=== PATIENT | female | born 1940 | race Caucasian/White ===

== ENCOUNTER → 2020-01-30 | Outpatient (CLI) | payer OTHER ==
[2020-01-30 10:25] LABS: Basophils # (auto) 0.1 10 ^3/uL (0-0.2); Basophils % (auto) 1.2 % (0.0-2.0); Eosinophils # (auto) 0.2 10 ^3/uL (0-0.8); Eosinophils % (auto) 2.9 % (0.0-7.0); Hematocrit 40.5 % (36.0-46.0); Hemoglobin 13.7 g/dL (12.2-16.2); Lymphocytes # (auto) 1.8 10 ^3/uL (0.4-5.4); Lymphocytes % (auto) 26.6 % (10.0-50.0); Mean Corpuscular Hemoglobin 29.7 pg (28.0-32.0); Mean Corpuscular Hgb Conc. 33.9 g/dL (32.0-36.0); Mean Corpuscular Volume 87.6 fL (80.0-100.0); Monocytes # (auto) 0.7 10 ^3/uL (0-1.3); Monocytes % (auto) 10.1 % (0.0-12.0); Neutrophils # (auto) 4.1 10 ^3/uL (1.6-8.6); Neutrophils % (auto) 59.2 % (37.0-80.0); Platelet Count (auto) 227 10^3/uL (140-450); Red Blood Cells 4.62 10^6/uL (4.0-5.20); Red Cell Distribution Width 13.7 % (11.8-14.3); White Blood Cell 6.9 10^3/uL (4.4-10.8)
[2020-01-30 10:46] LABS: Potassium 4.2 mmol/L (3.5-5.1)
[2020-01-30 10:50] LABS: Bilirubin, Total 0.6 mg/dL (0.2-1.0); Total Protein 7.2 g/dL (6.4-8.2)
[2020-01-30 10:53] LABS: BUN/Creatinine Ratio 16.7
== END | disposition home or self-care (01) ==
LOC: LAB 10:11
PROVIDERS: ATTEND Physician Assistant
DX: E78.5 Hyperlipidemia, unspecified (principal); E03.9 Hypothyroidism, unspecified; M19.90 Unspecified osteoarthritis, unspecified site; K29.60 Other gastritis without bleeding; Z82.49 Family history of ischemic heart disease and other diseases of the circulatory system
CPT/HCPCS: 36415; 80053; 80061; 84443; 85025

== ENCOUNTER → 2020-03-27 | Outpatient (CLI) | payer OTHER | END | disposition home or self-care (01) | LOC: XYW 09:52 | PROVIDERS: ATTEND Internal Medicine | DX: I08.8 Other rheumatic multiple valve diseases (principal); I10 Essential (primary) hypertension | CPT/HCPCS: 93306 ==

== ENCOUNTER → 2020-03-27 | Outpatient (CLI) | payer OTHER | END | disposition home or self-care (01) | LOC: LAB 10:58 | PROVIDERS: ATTEND Physician Assistant | DX: Z00.00 Encounter for general adult medical examination without abnormal findings (principal) | CPT/HCPCS: 82274 ==

== ENCOUNTER → 2020-04-04 | Outpatient (CLI) | payer OTHER ==
[~2020-04-04] VITALS: Ht 162.6 cm; Wt 69.4 kg
[~2020-04-04] MED LIST: ADENOSINE 58 MG in GIVE UN-DILUTED 0 ML IV STA
== END | disposition home or self-care (01) ==
LOC: XY 06:56
PROVIDERS: ATTEND Internal Medicine
DX: I10 Essential (primary) hypertension (principal)
CPT/HCPCS: 78452; 93017; A9500; J0153

== ENCOUNTER → 2023-11-15 | Outpatient (CLI) | payer OTHER ==
[~2023-11-15] MED LIST changes: -ADENOSINE 58 MG in GIVE UN-DILUTED 0 ML IV STA; +ATOR20TA50 PO; +LEVO75TA6 PO; +LISI40TA16 PO
== END | disposition home or self-care (01) ==
LOC: LAB 13:18
PROVIDERS: ATTEND Internal Medicine
DX: Z00.00 Encounter for general adult medical examination without abnormal findings (principal); R06.02 Shortness of breath; E78.5 Hyperlipidemia, unspecified; F32.5 Major depressive disorder, single episode, in full remission; I10 Essential (primary) hypertension
CPT/HCPCS: 82270

== ENCOUNTER 2023-11-17 12:00 | Inpatient (IN) | payer OTHER ==
[~2023-11-17] VITALS: Ht 165.1 cm; Wt 75.2 kg
[2023-11-17 13:27] LABS: Basophils # (auto) 0.2 10 ^3/uL (0-0.2); Basophils % (auto) 2.5 % (0.0-2.0); Hematocrit 24.9 % (36.0-46.0); Mean Corpuscular Hgb Conc. 29.9 g/dL (32.0-36.0); Neutrophils # (auto) 4.9 10 ^3/uL (1.6-8.6); White Blood Cell 8.3 10^3/uL (4.4-10.8)
[2023-11-17 13:29] LABS: Eosinophils # (auto) 0.3 10 ^3/uL (0-0.8); Eosinophils % (auto) 3.2 % (0.0-7.0); Hemoglobin 7.5 g/dL (12.2-16.2); Lymphocytes % (auto) 23.6 % (10.0-50.0); Mean Corpuscular Hemoglobin 18.5 pg (28.0-32.0); Mean Corpuscular Volume 61.8 fL (80.0-100.0); Monocytes % (auto) 12.4 % (0.0-12.0); Neutrophils % (auto) 58.3 % (37.0-80.0); Red Blood Cells 4.03 10^6/uL (4.0-5.20); Red Cell Distribution Width 18.7 % (11.8-14.3)
[2023-11-17 13:36] LABS: Alanine Aminotransferase 20 U/L (7-40); Albumin 5.2 g/dL (3.2-4.8); Alkaline Phosphatase 60 U/L (46-116); Anion Gap 8 (5-15); Aspartate Aminotransferase 24 U/L (13-40); BUN/Creatinine Ratio 11.8 (10.0-20.0); Blood Urea Nitrogen 9 mg/dL (9-23); Calcium 9.8 mg/dL (8.5-10.1); Carbon Dioxide 25 mmol/L (20-30); Chloride 94 mmol/L (98-107); Glucose 93 mg/dL (74-106); Sodium 127 mmol/L (136-145)
[2023-11-17 13:37] LABS: Bilirubin, Total 0.6 mg/dL (0.2-1.0); Total Protein 7.3 g/dL (5.7-8.2)
[2023-11-17 15:38] LABS: Urine Bacteria NONE SEEN /hpf (None Seen); Urine Blood Negative /uL (Negative); Urine Clarity Clear (Clear); Urine Color Colorless (Yellow); Urine Protein, UAD Negative (Negative); Urine Specific Gravity 1.004 (1.001-1.035); Urine Urobilinogen Normal (Negative); Urine WBC 1 /hpf (0 - 5)
[2023-11-17] MEDS ORDERED: LEVO75TA6 PO (16:24)
[2023-11-17] MEDS ORDERED: ATOR20TA50 PO (16:24)
[2023-11-17] MEDS ORDERED: LISI40TA16 PO (16:24)
[2023-11-17] MEDS ORDERED: HYDROcodone-ACET 5/325MG TAB PO PRN (16:30)
[2023-11-17] MEDS ORDERED: DOCUSATE SOD 100 MG CAP PO PRN (16:30)
[2023-11-17] MEDS ORDERED: ONDANSETRON HCL 4 MG/2 ML VIAL IV PRN (16:30)
[2023-11-17 17:05] LABS: % Iron Saturation 4.7 % (15-50)
[2023-11-17 17:36] LABS: Ferritin 3.5 ng/mL (10-291)
[2023-11-17 17:37] LABS: Folate (Folic Acid) > 24.00 ng/mL (>5.38)
[2023-11-17 23:23] VITALS: BP 139/71; PULSE 90; RESP 17; RESP 18; RESP 19; TEMP 98; TEMP 98.4; O2SAT 95; O2SAT 97
[2023-11-17] MEDS: ATORVASTATIN 20 MG TAB PO SCH (23:32)
[2023-11-18] VITALS (9 sets, daily range): BP systolic 111–139; BP diastolic 58–71; PULSE 66–91; RESP 16–20; TEMP 97.9–98.4; O2SAT 95–99
[2023-11-18] MEDS: LEVOTHYROXINE SODIUM 25 MCG TAB PO SCH (06:11)
[2023-11-18] MEDS: LEVOTHYROXINE SODIUM 50 MCG TAB PO SCH (06:11)
[2023-11-18 06:36] LABS: Chloride 96 mmol/L (98-107); Potassium 3.7 mmol/L (3.5-5.1); Sodium 130 mmol/L (136-145)
[2023-11-18 06:37] LABS: Anion Gap 9 (5-15); Calcium 9.4 mg/dL (8.5-10.1); Carbon Dioxide 25 mmol/L (20-30)
[2023-11-18 06:42] LABS: BUN/Creatinine Ratio 9.6 (10.0-20.0); Blood Urea Nitrogen 7 mg/dL (9-23); Glucose 87 mg/dL (74-106)
[2023-11-18 07:00] LABS: Basophils # (auto) 0.1 10 ^3/uL (0-0.2); Basophils % (auto) 1.2 % (0.0-2.0); Eosinophils # (auto) 0.2 10 ^3/uL (0-0.8)
[2023-11-18 07:03] LABS: Eosinophils % (auto) 2.6 % (0.0-7.0); Hematocrit 26.2 % (36.0-46.0); Hemoglobin 8.2 g/dL (12.2-16.2); Lymphocytes # (auto) 1.7 10 ^3/uL (0.4-5.4); Lymphocytes % (auto) 21.2 % (10.0-50.0); Mean Corpuscular Hemoglobin 20.4 pg (28.0-32.0); Mean Corpuscular Hgb Conc. 31.3 g/dL (32.0-36.0); Mean Corpuscular Volume 65.1 fL (80.0-100.0); Monocytes % (auto) 12.6 % (0.0-12.0); Neutrophils % (auto) 62.4 % (37.0-80.0); Red Blood Cells 4.02 10^6/uL (4.0-5.20); Red Cell Distribution Width 22.4 % (11.8-14.3)
[2023-11-18] MEDS ORDERED: PATIENTS OWN MEDICATION (Levothyroxine Sodium 1 TAB) PO SCH (10:00)
[2023-11-18] MEDS: LISINOPRIL 20 MG TAB PO SCH (10:11)
[2023-11-18] MEDS ORDERED: FER325T PO (10:27)
== END 2023-11-18 14:10 | disposition home or self-care (01) | DRG 812 ==
LOC: ER 12:00 → OVERFLOW 16:23 → WEST WING 23:13 → OBSVTOIN 11-18 09:06
PROVIDERS: ADMIT Nurse Practitioner Acute Care; ATTEND Nurse Practitioner Acute Care
PROC: 30233N1 Transfusion of Nonautologous Red Blood Cells into Peripheral Vein, Percutaneous Approach (ICD-10-PCS; principal; 2023-11-18)
DX: D50.9 Iron deficiency anemia, unspecified (principal); E87.1 Hypo-osmolality and hyponatremia; E86.0 Dehydration; I10 Essential (primary) hypertension; E07.9 Disorder of thyroid, unspecified; K21.9 Gastro-esophageal reflux disease without esophagitis; E03.9 Hypothyroidism, unspecified; E78.5 Hyperlipidemia, unspecified; Z90.710 Acquired absence of both cervix and uterus
CPT/HCPCS: 36415; 71045; 80048; 80053; 80061; 81001; 82040; 82270; 82607; 82728; 82746; 83010; 83540; 83550; 83880; 84439; 84443; 84484; 85025; 85045; 86850; 86900; 86901; 86920; G0378

== ENCOUNTER → 2023-11-17 | Outpatient (CLI) | payer OTHER ==
[~2023-11-17] MED LIST changes: +FER325T PO
[2023-11-17 10:37] LABS: Lymphocytes # (auto) 1.8 10 ^3/uL (0.4-5.4); Mean Corpuscular Hemoglobin 18.6 pg (28.0-32.0)
[2023-11-17 10:39] LABS: Basophils # (auto) 0.1 10 ^3/uL (0-0.2); Basophils % (auto) 1.8 % (0.0-2.0); Eosinophils # (auto) 0.3 10 ^3/uL (0-0.8); Eosinophils % (auto) 3.6 % (0.0-7.0); Lymphocytes % (auto) 23.8 % (10.0-50.0); Mean Corpuscular Hgb Conc. 30.4 g/dL (32.0-36.0); Mean Corpuscular Volume 61.3 fL (80.0-100.0); Monocytes # (auto) 0.9 10 ^3/uL (0-1.3); Monocytes % (auto) 12.4 % (0.0-12.0); Neutrophils # (auto) 4.4 10 ^3/uL (1.6-8.6); Neutrophils % (auto) 58.4 % (37.0-80.0); Nucleated Red Blood Cells % 0.1 %; Red Blood Cells 3.75 10^6/uL (4.0-5.20); Red Cell Distribution Width 18.5 % (11.8-14.3); White Blood Cell 7.5 10^3/uL (4.4-10.8)
[2023-11-17 11:21] LABS: Alanine Aminotransferase 18 U/L (7-40); Albumin 4.8 g/dL (3.2-4.8); Alkaline Phosphatase 54 U/L (46-116); Anion Gap 9 (5-15); Aspartate Aminotransferase 21 U/L (13-40); BUN/Creatinine Ratio 8.6 (10.0-20.0); Bilirubin, Total 0.4 mg/dL (0.2-1.0); Blood Urea Nitrogen 6 mg/dL (9-23); Calcium 9.4 mg/dL (8.5-10.1); Carbon Dioxide 24 mmol/L (20-30); Chloride 93 mmol/L (98-107); Cholesterol 127 mg/dL (< 200); Glucose 94 mg/dL (74-106); HDL Cholesterol 46 mg/dL (40-59); LDL Cholesterol 58 mg/dL (< 100); Potassium 4.1 mmol/L (3.5-5.1); Sodium 126 mmol/L (136-145); Triglycerides 169 mg/dL (< 150)
[2023-11-17 14:14] LABS: Hypochromia Marked; Platelet Estimate Adequate
== END | disposition home or self-care (01) ==
LOC: LAB 09:50
PROVIDERS: ATTEND Nurse Practitioner Family
DX: I10 Essential (primary) hypertension (principal); E78.5 Hyperlipidemia, unspecified; E03.9 Hypothyroidism, unspecified
CPT/HCPCS: 36415; 80053; 80061; 84439; 84443; 85025

== ENCOUNTER 2024-05-27 09:59 | Emergency (ER) | payer OTHER ==
[~2024-05-27] VITALS: Ht 160 cm; Wt 71.6 kg
[2024-05-27 12:57] VITALS: BP 128/51; TEMP 97.5
[2024-05-27 12:58] VITALS: PULSE 77; RESP 18; O2SAT 94
== END 2024-05-27 13:02 | disposition home or self-care (01) ==
LOC: ER 09:59
DX: J44.9 Chronic obstructive pulmonary disease, unspecified (principal); K21.9 Gastro-esophageal reflux disease without esophagitis; I10 Essential (primary) hypertension; E03.9 Hypothyroidism, unspecified; Z79.899 Other long term (current) drug therapy; Z98.890 Other specified postprocedural states; Z90.710 Acquired absence of both cervix and uterus
CPT/HCPCS: 36415; 71045; 83880; 85379; 93005

== ENCOUNTER 2025-02-01 00:18 | Emergency (ER) | payer OTHER ==
[~2025-02-01] VITALS: Ht 165.1 cm; Wt 79.8 kg
[2025-02-01 01:20] LABS: COVID19 ANTIGEN SOFIA FIA NEGATIVE (NEGATIVE)
[2025-02-01 01:21] LABS: Rapid Influenza A Negative (Negative); Rapid Influenza B Negative (Negative)
--- NOTE | 2025-02-01 01:53 | DVH ---
CHEST RADIOGRAPH Indication: cough Technique: Single frontal view of the chest was obtained COMPARISON: XY CHEST PORTABLE on DOS: 11/17/23 FINDINGS: Lines and Tubes: None Lungs: Clear Pleura: No effusion. No pneumothorax. Cardiomediastinal contours: Unremarkable IMPRESSION: No abnormality demonstrated.
[2025-02-01] MEDS ORDERED: AZITTAB PO (02:13)
[2025-02-01] MEDS ORDERED: BENZ100C97 PO (02:13)
[2025-02-01] MEDS ORDERED: ALBU108A5 IN (02:13)
--- NOTE | 2025-02-01 02:14 | ED.PDOC ---
SOB-HPI HPI Comments 84-year-old female complaining of cough congestion fever sore throat. States it started four days ago. Nothing makes it better, nothing makes it worse. States she was started having some mild shortness a breath today. No new foods or medication no recent travel. 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 History Family History Family History: Reviewed,noncontributory to illness Social History Smoker: Non-Smoker Alcohol: Denies ETOH Use Drugs: Denies Drug Use Lives In: Home Constitutional: denies: chills, diaphoresis, fatigue, fever, malaise, sweats, weakness, others EENTM: reports: nose congestion, throat pain; denies: blurred vision, double vision, ear bleeding, ear discharge, ear drainage, ear pain, ear ringing, eye pain, eye redness, hearing loss, mouth pain, mouth swelling, nasal discharge, nose bleeding, nose pain, photophobia, tearing, throat swelling, voice changes, others Respiratory: reports: cough; denies: hemoptysis, orthopnea, SOB at rest, shortness of breath, SOB with excertion, stridor, wheezing, others Cardiovascular: denies: chest pain, dizzy spells, diaphoresis, Dyspnea on exertion, edema, irregular heart beat, left arm pain, lightheadedness, palpitations, PND, syncope, others Gastrointestinal: denies: abdomen distended, abdominal pain, blood streaked bowels, constipated, diarrhea, dysphagia, difficulty swallowing, hematemesis, melena, nausea, poor appetite, poor fluid intake, rectal bleeding, rectal pain, vomiting, others Genitourinary: denies: abnormal vagina bleeding, burning, dyspareunia, dysuria, flank pain, frequency, hematuria, incontinence, pain, , vagina discharge, urgency, others Neurological: denies: dizziness, fainting, headache, left sided numbness, left sided weakness, numbness, paresthesia, pre-existing deficit, right sided numbness, right sided weakness, seizure, speech problems, tingling, tremors, weakness, others Musculoskeletal: denies: back pain, gout, joint pain, joint swelling, muscle pain, muscle stiffness, neck pain, others Integumetry: denies: bruises, change in color, change in hair/nails, dryness, laceration, lesions, lumps, rash, wounds, others Allergic/Immunocompromised: denies: Difficulty Healing, Frequent Infections, Hives, Itching, others Hematologic/Lymphatic: denies: anemia, blood clots, easy bleeding, easy bruising, swollen glands, others Physical Exam General Appearance: No Apparent Distress, Normal HEENT: Normal ENT Inspection, Pharynx Normal, TMs Normal Neck: Full Range of Motion, Non-Tender, Normal, Normal Inspection Respiratory: Chest Non-Tender, Lungs Clear, No Accessory Muscle Use, No Respiratory Distress, Normal Breath Sounds Cardiovascular: No Edema, No JVD, No Murmur, No Gallop, Normal Peripheral Pulses, Regular Rate/Rhythm Breast Exam: Deferred Gastrointestinal: No Organomegaly, Non Tender, No Pulsatile Mass, Normal Bowel Sounds, Soft Genitalia: Deferred Pelvic: Deferred Rectal: Deferred Extremities: No calf tenderness, Normal capillary refill, Normal inspection, Normal range of motion, Non-tender, No pedal edema Musculoskeletal : Apperance: Normal Neurologic: Alert, air route controller II-XII nml as Tested, No Motor Deficits, Normal Affect, Normal Mood, No Sensory Deficits Cerebellar Function: Normal Reflexes: Normal Skin: Dry, Normal Color, Warm Lymphatic: No Adenopathy Was a procedure done? Was a procedure done?: No Differential Dx Differential Diagnosis: Bronchitis, CHF, Dysrhythmia, Pneumonia X-Ray, Labs, Meds, VS Vital Signs Date Time Temp Pulse Resp B/P (MAP) Pulse Ox O2 Delivery O2 Flow Rate FiO2 02/01/25 00:30 98.4 107 18 150/82 (104) 93 98.4 Lab Test 02/01/25 00:47 Range/Units Influenza Type A Antigen Negative Negative Influenza Type B Antigen Negative Negative SARS-CoV-2 Antigen (Rapid) Negative NEGATIVE X-Ray, Labs, Meds, VS Comment Imaging: X-rays and CT scans were reviewed and interpreted by this provider, imaging shows no fractures and no pathological disease. Pending radiology review. Laboratory: Labs reviewed and interpreted by this provider. No significant abnormalities noted. Patient has prior medical visits reviewed. Med reconciliation performed Vital signs reviewed Time of 1ST Reevaluation: 02:14 Reevaluation 1ST: Improved Patient Education/Counseling: Diagnosis, Treatment, Need For Follow Up (Follow up with PCP in the next 2-4 days.) Family Education/Counseling: Diagnosis Departure 1 Departure Time of Disposition: 02:10 Impression: Primary Impression: Bronchitis Disposition: 01 HOME / SELF CARE / HOMELESS Condition: Fair e-Prescriptions Benzonatate (Benzonatate) 100 Mg Cap 1-2 CAP PO Q4HR, #60 CAP Prov: BRANDY BATISTA 02/01/25 Azithromycin (Zithromax Z-Ganesh) 250 Mg Tab 250 MG PO DAILY for 5 Days, #5 TAB Prov: BRANDY BATISTA 02/01/25 Albuterol Sulfate (Albuterol Sulfate Hfa) 108 Mcg/Act Aer 108 MCG IN TID PRN, #1 AER Prov: BRANDY BATISTA 02/01/25 Discharged With: Self Critical Care Note Critical Care Time?: No Stability Stability form required: No Heart Score Heart Score: Heart Score Response (Comments) Value History N/A 0 EKG N/A 0 Age N/A 0 Risk Factors N/A 0 Troponin N/A 0 Total 0 BRANDY BATISTA February 01, 2025 02:14
[2025-02-01 02:30] VITALS: BP 150/82; PULSE 100; RESP 18; TEMP 98.9; O2SAT 99
== END 2025-02-01 02:35 | disposition home or self-care (01) ==
LOC: ER 00:18
DX: J40 Bronchitis, not specified as acute or chronic (principal); I10 Essential (primary) hypertension; K21.9 Gastro-esophageal reflux disease without esophagitis; Z90.710 Acquired absence of both cervix and uterus; Z98.890 Other specified postprocedural states; Z20.822 Contact with and (suspected) exposure to COVID-19
CPT/HCPCS: 36415; 71045; 87426; 87804

== ENCOUNTER 2025-03-29 11:37 | Inpatient (IN) | payer OTHER ==
[~2025-03-29] VITALS: Ht 162.6 cm; Wt 80.3 kg
[~2025-03-29 11:37] MED LIST changes: +ALBU108A5 IN; +AZITTAB PO; +BENZ100C97 PO
[2025-03-29 12:17] VITALS: PULSE 88; RESP 12; O2SAT 96
--- NOTE | 2025-03-29 12:23 | ED.PDOC ---
History of Present Illness HPI Comments HPI: 84 y/o F, with PMHx of anemia, HTN, and thyroid disease presents to the ED for CC of generalized weakness. Patient states, that she has been experiencing generalized weakness x2days. Patient reports, to feel overly tired with no energy. Patient denies active bleeding, nausea, vomiting, or dark stools. No other symptoms or modifying factors present at this time. Initial Vitals BP: HR: RR: O2: Temp: Past Medical History: HTN, ANEMIA, THYROID DISEASE Past Surgical History: BACK Social History: Denies ETOH, smoking, and drug use. Medications: IRON Allergies: PENICILLINS HPI: Poor Historian. REVIEW OF SYSTEMS: CONSTITUTIONAL: Denies acute: fever, diaphoresis, chills, HEAD: Denies acute: headache, photophobia Eyes: Denies acute: Double vision, vision loss, eye pain, eye discharge. EARS: Denies acute: tinnitus, hearing loss, ear discharge, ear pain, THROAT: Denies acute: sore throat, swelling, difficulty swallowing , pain with swallowing, change in voice. NECK: Denies acute: neck pain, neck swelling, stiff neck. HEART: Denies acute : chest pain, palpitations, LUNGS: Denies acute: SOB, wheezing, cough, hemoptysis ABDOMEN: Denies acute: abdominal pain, Nausea, Vomiting, diarrhea, melena , hematemesis, hematochezia SKIN: Denies acute: rash, redness, lesions, itchiness. EXTREMITIES: Denies acute: calf pain, numbness, tingling, weakness, denies pain in extremity. Denies acute: Low back pain. Neuro: Denies acute: focal neurological deficit, motor or sensory focal neurological deficit, tremors, seizure like activity, confusion, dizziness, change in mental status, loss of bowel or bladder function, cauda equina like symptoms. : Denies acute: dysuria, hematuria, flank pain, increase in urinary frequency. PSYCH: Denies acute: hallucination, suicidal ideation, homicidal ideation. FEMALE: Denies acute: abnormal vaginal bleeding, foul odor, unusual discharge. PHYSICAL EXAM: General: ----mild----acute distress, awake and alert. Head: normocephalic, atraumatic. Neck: supple, trachea is midline, no swelling. Throat: Normal phonation. Eyes:, no erythema, no purulent discharge, no proptosis, no icterus. Heart: regular rate, regular rhythm, no significant murmur appreciated. Lungs: no apparent respiratory distress, Able to speak in full sentences. No wheezing, no rhonchi, no crackles. No stridors Clear to auscultation bilaterally. Abdomen: non tender to palpation, non distended, soft, no guarding, no rebound, + bowel sounds. Neuro: Awake, Alert, oriented to name, self, situation, follows commands GCS=15. Speech is normal. Skin: no petechia, no purpura, no cyanosis, non-pale, not jaundice. Lower extremities: --no - Pitting edema no deformity, no focal swelling, no calf TTP. Makes eye contact. moves all four extremities. Face: no apparent facial droop. Ambulating in the ED independently. ED COURSE: DISCLAIMER: This medical document was created using an electronic medical record system with voice recognition software and computerized dictation system. Although this document has been carefully reviewed, there might still be some phonetic and typographical errors. Occasional wrong-word or "sound-alike" substitutions may have occurred due to the inherent limitations of voice recognition software. These areas are purely typographical due to imperfections of the software programs and do not reflect any compromise in the patient's medical care. Please read the chart carefully and recognize, using context, where these substitutions have occurred. Chief Complaint: General Weakness Time Seen by MD: 12:20 Primary Care Provider: ELIS Reviewed Notes: Nurses Notes, Medications, Allergies Allergies: Coded Allergies: Penicillins (Verified Allergy, Unknown, 03/29/25) Home Meds Active Scripts Benzonatate (Benzonatate) 100 Mg Cap, 1-2 CAP PO Q4HR, #60 CAP Prov:BRANDY BATISTAP 02/01/25 Azithromycin (Zithromax Z-Ganesh) 250 Mg Tab, 250 MG PO DAILY for 5 Days, #5 TAB Prov:BRANDY BATISTA NET COORDINATOR 02/01/25 Albuterol Sulfate (Albuterol Sulfate Hfa) 108 Mcg/Act Aer, 108 MCG IN TID PRN, #1 AER Prov:BRANDY BATISTA NET COORDINATOR 02/01/25 Ferrous Sulfate (FERROUS SULFATE) 325 Mg Tb, 1 TAB PO BID for 60 Days, #120 TAB 3 Refills Prov:ALICJA JAMES TECHNICIAN [employer] 11/18/23 Reported Medications Nifedipine (Nifedipine ER) 30 Mg Tab 03/29/25 Atorvastatin Calcium (ATORVASTATIN CALCIUM) 20 Mg Tab 03/29/25 Lisinopril (Lisinopril) 40 Mg Tab, 1 TAB PO DAILY 11/17/23 Atorvastatin Calcium (ATORVASTATIN CALCIUM) 20 Mg Tab, 1 TAB PO DAILY 11/17/23 Levothyroxine Sodium (Levothyroxine Sodium) 75 Mcg Tab, 1 TAB PO DAILY 11/17/23 Information Source: Patient Mode of Arrival: Ambulatory Severity: Moderate Timing: Days Duration: Since onset Was a procedure done? Was a procedure done?: No Differential Dx Considerations may include: Includes but not limited to thyroid disease, encephalopathy, electrolyte abnormality, sepsis, infection, intracranial pathology, drug adverse effects, arrhythmia, kidney insufficiency, ACS, CVA, malignancy, anemia X-Ray, Labs, Meds, VS Vital Signs Date Time Temp Pulse Resp B/P (MAP) Pulse Ox O2 Delivery O2 Flow Rate FiO2 03/29/25 16:08 91 16 136/78 (97) 100 03/29/25 15:19 91 121/57 88 107/61 03/29/25 14:37 97.5 91 18 124/72 (89) 96 97.5 03/29/25 12:17 88 12 96 Room Air* 0 21 03/29/25 12:17 97.9 88 12 120/59 (79) 96 97.9 03/29/25 11:58 88 03/29/25 11:45 97.9 88 12 120/59 (79) 96 97.9 Lab Test 03/29/25 16:36 03/29/25 14:10 03/29/25 12:55 03/29/25 11:48 Range/Units Troponin I High Sensitivity 11 10 8 </=34 ng/L White Blood Count 7.4 4.4-10.8 10^3/uL Red Blood Count 2.78 L 4.0-5.20 10^6/uL Hemoglobin 8.5 L 12.2-16.2 g/dL Hematocrit 25.2 L 36.0-46.0 % Mean Corpuscular Volume 90.8 80.0-100.0 fL Mean Corpuscular Hemoglobin 30.5 28.0-32.0 pg Mean Corpuscular Hemoglobin Concent 33.6 32.0-36.0 g/dL Red Cell Distribution Width 15.7 H 11.8-14.3 % Platelet Count 285 140-450 10^3/uL Mean Platelet Volume 7.8 6.9-10.8 fL Neutrophils (%) (Auto) 65.7 37.0-80.0 % Lymphocytes (%) (Auto) 20.4 10.0-50.0 % Monocytes (%) (Auto) 11.1 0.0-12.0 % Eosinophils (%) (Auto) 1.6 0.0-7.0 % Basophils (%) (Auto) 1.2 0.0-2.0 % Neutrophils # (Auto) 4.9 1.6-8.6 10 ^3/uL Lymphocytes # (Auto) 1.5 0.4-5.4 10 ^3/uL Monocytes # (Auto) 0.8 0-1.3 10 ^3/uL Eosinophils # (Auto) 0.1 0-0.8 10 ^3/uL Basophils # (Auto) 0.1 0-0.2 10 ^3/uL Nucleated Red Blood Cells 0.0 % Reticulocyte Count (auto) 6.22 H 0.5-1.5 % Sodium Level 129 L 136-145 mmol/L Potassium Level 3.8 3.5-5.1 mmol/L Chloride Level 97 L 98-107 mmol/L Carbon Dioxide Level 24 20-31 mmol/L Anion Gap 8 5-15 Blood Urea Nitrogen 18 9-23 mg/dL Creatinine 0.87 0.550-1.02 mg/dL Glomerular Filtration Rate Calc 66 >90 mL/min BUN/Creatinine Ratio 20.7 H 10.0-20.0 Serum Glucose 96 74-106 mg/dL Lactic Acid Level 0.9 0.4-2.0 mmol/L Calcium Level 9.5 8.7-10.4 mg/dL Iron Level 207 H 50-170 ug/dL Total Iron Binding Capacity 361 250-425 ug/dL Percent Iron Saturation 57.3 H 15-50 % Ferritin 12.3 10-291 ng/mL Total Bilirubin 0.3 0.2-1.0 mg/dL Aspartate Amino Transferase (AST) 22 13-40 U/L Alanine Aminotransferase (ALT) 24 7-40 U/L Alkaline Phosphatase 47 46-116 U/L Total Protein 6.5 5.7-8.2 g/dL Albumin 4.5 3.2-4.8 g/dL Vitamin B12 Level Pending Vitamin D 25-Hydroxy Pending 25-Hydroxy Vitamin D2 Pending 25-Hydroxy Vitamin D3 Pending Thyroid Stimulating Hormone (TSH) 1.19 0.55-4.78 uIU/mL Urine Color Colorless Yellow Urine Clarity Clear Clear Urine pH 6.5 5.0-9.0 Urine Specific [place] 1.009 1.001-1.035 Urine Protein Negative Negative Urine Ketones Negative Negative Urine Blood Negative Negative /uL Urine Nitrite Negative Negative Urine Bilirubin Negative Negative Urine Urobilinogen Normal Negative mg/dL Urine Leukocyte Esterase Negative Negative /uL Urine RBC 1 0 - 4 /hpf Urine Microscopic WBC 0-5 /HPF Urine Squamous Epithelial Cells None seen <5 /hpf Urine Bacteria None seen None Seen /hpf Urine Glucose Normal Normal mg/dL POC Glucose 119 H 70-106 mg/dl Current Medications Medications (Trade) Dose Ordered Sig/Conner Route Start Time Stop Time Status Last Admin Sodium Chloride 1,000 ml @ 1,000 mls/hr Q1H ONCE IV 03/29/25 12:00 03/29/25 12:59 DC 03/29/25 12:33 [place] [id number] Ph: [phone] DIAGNOSTIC IMAGING Diagnostic Imaging Report : [id number] Signed PATIENT: JUSTIN WILLIAMSON JANCCT: [id number] UNIT: [id number] : 1940 LOC: ER ROOM / BED: / AGE / SEX: 84 / F ADM STATUS: REG ER SERVICE 1155 ORDERING PHYSICIAN: SHELTON DE SANTIAGO DO PROCEDURE(s): CXRP - CHEST PORTABLE REASON: gen weak ORDER NUMBER(s): [id number], ACCESSION NUMBER(s): [id number] EXAM: XY CHEST PORTABLE Indication: gen weak Technique: Single frontal view of the chest was obtained Comparison: XY CHEST XRAY 1 VIEW on DOS: 02/01/25, XY CHEST PORTABLE on DOS: 05/27/24, XY CHEST PORTABLE on DOS: 11/17/23 FINDINGS: Lines and Tubes: None Lungs: No focal consolidation. Pleura: No effusion. No pneumothorax. Cardiomediastinal contours: Unremarkable. Atherosclerotic vascular calcifications of the thoracic aorta are noted. Bones: No acute osseous abnormality. IMPRESSION: No acute cardiopulmonary disease. ATED BY: ACACIA JOHNSON MD DICTATED DATE/TIME: 03/29/25 1224 SIGNED BY: ACACIA JOHNSON MD SIGNED DATE/TIME: 03/29/254 CC: Time of 1ST Reevaluation: 12:59 (All labs are still pending) Reevaluation 1ST: Unchanged Patient Education/Counseling: Diagnosis, Treatment Family Education/Counseling: No Family Present Comments Orthostatics were performed but were unremarkable however patient continues to be symptomatic. Patient presented with the above HPI.--generalized----workup was initiated. patient was found with the above mentioned diagnosis. the following medications were ordered: please refer to order lists of meds and tests obtained by myself Dr. De Santiago. Patient ED course and VS have been stabilized. Patient has been reassessed in the ED and remained in a stable condition. Pertinent incidental findings were discussed with the patient and/or family. Patient/family voices understanding and is agreeable with plan. Patient has been observed in the ED adequate length of time to insure improvement/stability. Escalation of care considered: Consideration of escalation to observation or admission Patient was DISCHARGED home in a stable condition. All the reports of any imaging studies that were ordered by myself were reviewed by myself. Departure 1 Departure Time of Disposition: 15:45 Impression: Primary Impression: Generalized weakness Additional Impressions: Symptomatic anemia Hyponatremia Disposition: ADMITTED INPATIENT Admit to: Tele Condition: Guarded Discharged With: Self Critical Care Note Critical Care Time?: Yes (45 min-critical care time only) Stability Stability form required: No Heart Score Heart Score: Heart Score Response (Comments) Value History Slightly Suspicious 0 EKG Normal 0 Age >65 2 Risk Factors 1 or 2 risk factors 1 Troponin Normal limit 0 Total 3 I personally scribed for SHELTON DE SANTIAGO DO ([email or web address]) on 03/29/25 at 12:23. Electronically submitted by Ania Mar ([email or web address]). I personally scribed for SHELTON DE SANTIAGO DO ([email or web address]) on 03/29/25 at 12:28. Electronically submitted by Ania Mar ([email or web address]). I personally scribed for SHELTON DE SANTIAGO DO ([email or web address]) on 03/29/25 at 14:59. Electronically submitted by Ania Mar ([email or web address]). SHELTON DE SANTIAGO DO Mar 29, 2025 12:23
--- NOTE | 2025-03-29 12:26 | DVH ---
EXAM: XY CHEST PORTABLE Indication: gen weak Technique: Single frontal view of the chest was obtained Comparison: XY CHEST XRAY 1 VIEW on DOS: 02/01/25, XY CHEST PORTABLE on DOS: 05/27/24, XY CHEST PORTABLE on DOS: 11/17/23 FINDINGS: Lines and Tubes: None Lungs: No focal consolidation. Pleura: No effusion. No pneumothorax. Cardiomediastinal contours: Unremarkable. Atherosclerotic vascular calcifications of the thoracic ao rta are noted. Bones: No acute osseous abnormality. IMPRESSION: No acute cardiopulmonary disease.
[2025-03-29] MEDS: SODIUM CHLORIDE 0.9% 1,000 ML IV ONE (12:33)
[2025-03-29 13:36] LABS: Hematocrit 25.2 % (36.0-46.0); Hemoglobin 8.5 g/dL (12.2-16.2); Mean Corpuscular Hemoglobin 30.5 pg (28.0-32.0); Mean Corpuscular Volume 90.8 fL (80.0-100.0); Nucleated Red Blood Cells % 0.0 %
[2025-03-29 13:53] LABS: Alanine Aminotransferase 24 U/L (7-40); Albumin 4.5 g/dL (3.2-4.8); Alkaline Phosphatase 47 U/L (46-116); Anion Gap 8 (5-15); BUN/Creatinine Ratio 20.7 (10.0-20.0); Bilirubin, Total 0.3 mg/dL (0.2-1.0); Blood Urea Nitrogen 18 mg/dL (9-23); Calcium 9.5 mg/dL (8.7-10.4); Carbon Dioxide 24 mmol/L (20-31); Glucose 96 mg/dL (74-106); Potassium 3.8 mmol/L (3.5-5.1); Total Protein 6.5 g/dL (5.7-8.2)
[2025-03-29 13:55] LABS: Chloride 97 mmol/L (98-107); Sodium 129 mmol/L (136-145)
[2025-03-29 14:21] LABS: Urine Protein, UAD Negative (Negative)
[2025-03-29] MEDS ORDERED: ONDANSETRON HCL 4 MG/2 ML VIAL IV PRN (17:30)
[2025-03-29] MEDS ORDERED: ACETAMINOPHEN 325 MG TAB PO PRN (17:30)
[2025-03-29] MEDS ORDERED: NIFE1TAB36 (17:43)
[2025-03-29] MEDS ORDERED: ATOR20TA50 (17:43)
--- NOTE | 2025-03-29 17:45 | DVHHP2 ---
History of Present Illness Reason for Visit: Weakness History of Present Illness Denia Tate is an 84 year female with past medical history of hypertension, hyperlipidemia, anemia, hypothyroidism, GERD, and hysterectomy who presents to the ED with weakness x2 days. Patient's daughter Lubna at the chair side. She also endorses that her mom was hospitalized earlier this year in October and required 1 unit of blood transfusion. Patient reports that the weakness suddenly came about 2 days ago. She denies any recent trauma or injury, recent sick contacts, recent ingestion of spoiled food, recent travels, abdominal pain, nausea, vomiting, diarrhea, chest pain, shortness of breath, fever, chills, lightheadedness, dizziness, or urinary symptoms. Patient also denies any blood in her stool. Patient also endorses that she used to smoke 1 pack of cigarettes per day and quit at the age of [age] years old. Cardiovascular: HTN, hyperipidemia GI: GERD Heme/Onc: Anemia NOS Endocrine: Hypothyroidism Past Surgical History: Hysterectomy Family History: Other (Dad had a heart attack and mom with dementia) Smoke: Quit (Uses smoke 1 pack per day and quit at the age of [age] years old) ALCOHOL: none Drugs: None Lives: with Family Domestic Violence: Neg Review of Systems Constitutional: Yes: Weakness Allergies: Coded Allergies: Penicillins (Verified Allergy, Unknown, 03/29/25) Medications Current Medications Medications Dose Ordered Sig/Conner Route Start Time Stop Time Status Last Admin Dose Admin Ondansetron HCl 4 mg Q4HP PRN IV 03/29/25 17:30 UNV Acetaminophen 650 mg Q6HP PRN PO 03/29/25 17:30 UNV Atorvastatin Calcium 20 mg DAILY PO 03/30/25 10:00 UNV Patient Own Medication 1 tab DAILY PO 03/30/25 10:00 UNV Patient Own Medication 1 tab DAILY PO 03/30/25 10:00 UNV Exam Vital Signs Vital Signs Date Time Temp Pulse Resp B/P (MAP) Pulse Ox O2 Delivery O2 Flow Rate FiO2 03/29/25 16:08 91 16 136/78 (97) 100 03/29/25 14:37 97.5 97.5 03/29/25 12:17 Room Air* 0 21 General Appearance: Alert, Oriented X3, Cooperative, No acute distress HEENT: Atraumatic, PERRLA, EOMI, Mucous membr. moist/pink Respiratory: Clear to auscultation, Normal air movement Cardiovascular: Normal S1, Normal S2, No murmurs Abdominal: Normal bowel sounds, Soft Extremities: No clubbing, No cyanosis, No edema, Normal pulses Skin: No significant lesion Neuro: Normal gait, Normal speech, Strength at 5/5 X4 ext, Normal tone, Sensation intact Psych/Mental Status: Mental status NL, Mood NL Labs/Xrays Labs Test 03/29/25 16:36 03/29/25 12:55 03/29/25 11:48 Range/Units Troponin I High Sensitivity 11 </=34 ng/L White Blood Count 7.4 4.4-10.8 10^3/uL Red Blood Count 2.78 L 4.0-5.20 10^6/uL Hemoglobin 8.5 L 12.2-16.2 g/dL Hematocrit 25.2 L 36.0-46.0 % Mean Corpuscular Volume 90.8 80.0-100.0 fL Mean Corpuscular Hemoglobin 30.5 28.0-32.0 pg Mean Corpuscular Hemoglobin Concent 33.6 32.0-36.0 g/dL Red Cell Distribution Width 15.7 H 11.8-14.3 % Platelet Count 285 140-450 10^3/uL Mean Platelet Volume 7.8 6.9-10.8 fL Neutrophils (%) (Auto) 65.7 37.0-80.0 % Lymphocytes (%) (Auto) 20.4 10.0-50.0 % Monocytes (%) (Auto) 11.1 0.0-12.0 % Eosinophils (%) (Auto) 1.6 0.0-7.0 % Basophils (%) (Auto) 1.2 0.0-2.0 % Neutrophils # (Auto) 4.9 1.6-8.6 10 ^3/uL Lymphocytes # (Auto) 1.5 0.4-5.4 10 ^3/uL Monocytes # (Auto) 0.8 0-1.3 10 ^3/uL Eosinophils # (Auto) 0.1 0-0.8 10 ^3/uL Basophils # (Auto) 0.1 0-0.2 10 ^3/uL Nucleated Red Blood Cells 0.0 % Sodium Level 129 L 136-145 mmol/L Potassium Level 3.8 3.5-5.1 mmol/L Chloride Level 97 L 98-107 mmol/L Carbon Dioxide Level 24 20-31 mmol/L Anion Gap 8 5-15 Blood Urea Nitrogen 18 9-23 mg/dL Creatinine 0.87 0.550-1.02 mg/dL Glomerular Filtration Rate Calc 66 >90 mL/min BUN/Creatinine Ratio 20.7 H 10.0-20.0 Serum Glucose 96 74-106 mg/dL Lactic Acid Level 0.9 0.4-2.0 mmol/L Calcium Level 9.5 8.7-10.4 mg/dL Total Bilirubin 0.3 0.2-1.0 mg/dL Aspartate Amino Transferase (AST) 22 13-40 U/L Alanine Aminotransferase (ALT) 24 7-40 U/L Alkaline Phosphatase 47 46-116 U/L Total Protein 6.5 5.7-8.2 g/dL Albumin 4.5 3.2-4.8 g/dL Thyroid Stimulating Hormone (TSH) 1.19 0.55-4.78 uIU/mL Urine Color Colorless Yellow Urine Clarity Clear Clear Urine pH 6.5 5.0-9.0 Urine Specific [place] 1.009 1.001-1.035 Urine Protein Negative Negative Urine Ketones Negative Negative Urine Blood Negative Negative /uL Urine Nitrite Negative Negative Urine Bilirubin Negative Negative Urine Urobilinogen Normal Negative mg/dL Urine Leukocyte Esterase Negative Negative /uL Urine RBC 1 0 - 4 /hpf Urine Microscopic WBC 0-5 /HPF Urine Squamous Epithelial Cells None seen <5 /hpf Urine Bacteria None seen None Seen /hpf Urine Glucose Normal Normal mg/dL POC Glucose 119 H 70-106 mg/dl EXAM: XY CHEST PORTABLE Indication: gen weak Technique: Single frontal view of the chest was obtained Comparison: XY CHEST XRAY 1 VIEW on DOS: 02/01/25, XY CHEST PORTABLE on DOS: 05/27/24, XY CHEST PORTABLE on DOS: 11/17/23 FINDINGS: Lines and Tubes: None Lungs: No focal consolidation. Pleura: No effusion. No pneumothorax. Cardiomediastinal contours: Unremarkable. Atherosclerotic vascular calcifications of the thoracic aorta are noted. Bones: No acute osseous abnormality. IMPRESSION: No acute cardiopulmonary disease. Assessment/Plan Assessment/Plan Assessment Generalized weakness likely due to anemia Hyponatremia History of hypertension History of hyperlipidemia History of anemia History of hypothyroidism History of GERD History of hysterectomy History of blood transfusion in October of 2024 Ex tobacco use Plan Admit to [facility] Flu test UA noted NS 1 L given in ED Troponin Type and screen EKG TSH Chest x-ray Lactic Troponin negative x3 Orthostatics Iron panel Reticulocyte count Ferritin B12 Folate Vitamin-D Diet Home medications reconciled DVT prophylaxis-not indicated patient ambulating PUD prophylaxis-PPIs Discussed plan of care with patient, patient's daughter, and nurse [phone] Behavior change smoking regarding continuing cessation of smoking [id number] Preventive counseling healthy eating habits, physical activity, and regular checkups Plan discussed with: Patient, Daughter My Orders Orders - LEE IBARRA Procedure Category Date Status Time Admit ADMIT 03/29/25 Transmitted 17:26 Allergies ROBERTO 03/29/25 In Process 17:26 Code Status CODE 03/29/25 Transmitted 17:26 Ondansetron Hcl PHA 03/29/25 Logged (Zofran) 17:30 Complete Blood Count LAB 03/30/25 Verified 04:00 Comprehensive LAB 03/30/25 Verified Metabolic Panel 04:00 Cardiac DIET 03/29/25 Transmitted Diet-2gna,Lofat,Lochol Dinner Acetaminophen Tablet PHA 03/29/25 Logged (Tylenol Tablet) 17:30 Sequential ROBERTO 03/29/25 In Process Compression Device Iron Panel LAB 03/29/25 Logged 17:26 Reticulocyte Count LAB 03/29/25 Logged 17:26 Ferritin LAB 03/29/25 Logged 17:26 Vitamin B12 LAB 03/29/25 Logged 17:26 Vitamin D 25-Hydroxy LAB 03/29/25 Logged D2 + D3 17:26 Atorvastatin (Lipitor) PHA 03/30/25 Logged 10:00 (Nf) Levothyroxine PHA 03/30/25 Logged Sodium 10:00 (Nf) Lisinopril PHA 03/30/25 Logged 10:00 Nifedipine Er PHA 03/30/25 Verified (Procardia Xl 10:00 Date of Service: Mar 29, 2025 Billing Provider: LEE IBARRA Common Visit Codes: 23626-[id number] INP/OBS CARE (HIGH) Secondary Visit Codes: 98499-[id number] COUNSELING IND, [id number] CHNG SMOKING 3-10m LEE IBARRA Mar 29, 2025 17:45
[2025-03-29 18:32] LABS: Total Iron Binding Capacity 361.0 ug/dL (250-425)
[2025-03-29 18:40] LABS: Iron 207.0 ug/dL (50-170)
[2025-03-29 19:00] VITALS: PULSE 84; RESP 18; O2SAT 95
[2025-03-29 19:13] LABS: Ferritin 12.3 ng/mL (10-291)
[2025-03-29] MEDS: ATORVASTATIN 20 MG TAB PO SCH (22:00)
[2025-03-29 22:20] VITALS: BP 132/68; PULSE 78; RESP 18; TEMP 97.8; O2SAT 98
[2025-03-29 23:19] VITALS: PULSE 74; RESP 18; O2SAT 94
[2025-03-29 23:33] VITALS: BP 132/68; PULSE 78; RESP 18; TEMP 97.8; O2SAT 98
[2025-03-30] VITALS (7 sets, daily range): BP systolic 100–131; BP diastolic 50–66; PULSE 74–88; RESP 16–19; TEMP 97.7–98; O2SAT 95–99
[2025-03-30] MEDS: LEVOTHYROXINE SODIUM 25 MCG TAB PO SCH (05:32)
[2025-03-30 06:06] LABS: Hematocrit 25.2 % (36.0-46.0); Hemoglobin 8.6 g/dL (12.2-16.2); Mean Corpuscular Hemoglobin 30.5 pg (28.0-32.0); Mean Corpuscular Volume 89.8 fL (80.0-100.0); Nucleated Red Blood Cells % 0.0 %
[2025-03-30 06:17] LABS: Alanine Aminotransferase 25 U/L (7-40); Albumin 4.4 g/dL (3.2-4.8); Anion Gap 10 (5-15); BUN/Creatinine Ratio 18.1 (10.0-20.0); Bilirubin, Total 0.3 mg/dL (0.2-1.0); Blood Urea Nitrogen 15 mg/dL (9-23); Calcium 9.8 mg/dL (8.7-10.4); Carbon Dioxide 25 mmol/L (20-31); Chloride 99 mmol/L (98-107); Potassium 4.1 mmol/L (3.5-5.1); Total Protein 6.3 g/dL (5.7-8.2)
[2025-03-30 06:27] LABS: Alkaline Phosphatase 44 U/L (46-116); Glucose 108 mg/dL (74-106); Sodium 134 mmol/L (136-145)
[2025-03-30] MEDS: LISINOPRIL 20 MG TAB PO SCH (09:59)
[2025-03-30] MEDS: PANTOPRAZOLE 40 MG/10 ML VIAL INJ IV SCH (10:00)
--- NOTE | 2025-03-30 11:09 | DVHPN2 ---
Reviewed: Care Plan, H&P, Labs, Medications, Previous Orders, Radiology Changes from previous H/P or p: No Changes Objective Vitals Vital Signs Date Time Temp Pulse Resp B/P (MAP) Pulse Ox O2 Delivery O2 Flow Rate FiO2 03/30/25 10:00 128/62 03/30/25 09:30 97.8 88 17 99 97.8 03/30/25 07:45 Room Air* 0 21 Intake/Output Intake and Output 03/30/25 07:00 Intake Total 1400 ml Output Total 0 ml Balance 1400 ml Intake Oral 400 ml IV Total 1000 ml Output Urine Total 0 ml Medications Current Medications Medications Dose Ordered Sig/Conner Route Start Time Stop Time Status Last Admin Dose Admin Ondansetron HCl 4 mg Q4HP PRN IV 03/29/25 17:30 Acetaminophen 650 mg Q6HP PRN PO 03/29/25 17:30 Atorvastatin Calcium 20 mg HS PO 03/29/25 22:00 Levothyroxine Sodium 75 mcg DAILY@0600 PO 03/30/25 06:00 03/30/25 05:32 75 MCG Lisinopril 40 mg DAILY PO 03/30/25 10:00 03/30/25 09:59 40 MG Nifedipine 30 mg DAILY PO 03/30/25 10:00 03/30/25 10:00 30 MG Pantoprazole Sodium 40 mg DAILY IV 03/30/25 10:00 03/30/25 10:00 40 MG Laboratory Results Laboratory Tests 03/30/25 05:13 Chemistry Test 03/29/25 12:55 03/30/25 05:13 Albumin 4.5 g/dL (3.2-4.8) 4.4 g/dL (3.2-4.8) Calcium Level 9.5 mg/dL (8.7-10.4) 9.8 mg/dL (8.7-10.4) Total Protein 6.5 g/dL (5.7-8.2) 6.3 g/dL (5.7-8.2) LFT Test 03/29/25 12:55 03/30/25 05:13 Alanine Aminotransferase (ALT) 24 U/L (7-40) 25 U/L (7-40) Alkaline Phosphatase 47 U/L (46-116) 44 U/L (46-116) L Aspartate Amino Transferase (AST) 22 U/L (13-40) 23 U/L (13-40) Total Bilirubin 0.3 mg/dL (0.2-1.0) 0.3 mg/dL (0.2-1.0) HgA1c, TSH Test 03/29/25 12:55 Thyroid Stimulating Hormone (TSH) 1.19 uIU/mL (0.55-4.78) Urinalysis Test 03/29/25 11:48 Urine Color Colorless (Yellow) Urine Clarity Clear (Clear) Urine pH 6.5 (5.0-9.0) Urine Specific [place] 1.009 (1.001-1.035) Urine Protein Negative (Negative) Urine Ketones Negative (Negative) Urine Blood Negative /uL (Negative) Urine Nitrite Negative (Negative) Urine Bilirubin Negative (Negative) Urine Urobilinogen Normal mg/dL (Negative) Urine Leukocyte Esterase Negative /uL (Negative) Urine RBC 1 /hpf (0 - 4) Urine Microscopic WBC /HPF (0-5) Urine Squamous Epithelial Cells None seen /hpf (<5) Urine Bacteria None seen /hpf (None Seen) Urine Glucose Normal mg/dL (Normal) Labs and/or images reviewed: Labs reviewed by me, Image(s) reviewed by me Assessment/Plan Assessment/Plan Generalized weakness Anemia hemoglobin 8.5 Hypertension Hypercholesterolemia Hypothyroidism: Check TSH GERD History of smoking Exertional dyspnea rule out congestive heart failure: Echocardiogram cardiology consult Chest x-ray negative Flu test negative Meg test pending Plan discussed with: Patient My Orders Orders - VANESSA CAROLINA MD Procedure Category Date Status Time Covid19 Antigen Radha LAB 03/30/25 Verified Date of Service: Mar 30, 2025 Billing Provider: VANESSA CAROLINA MD Common Visit Codes: [id number] INP/OBS CARE(HIGH) VANESSA CAROLINA MD Mar 30, 2025 11:09
--- NOTE | 2025-03-30 15:02 | DVHCONRES ---
Date Seen: Mar 30, 2025 Resident Creating Document: YOSSI TUCKER RESDIENT History of Present Illness This is a 84-year-old female with past medical history of hypertension, dyslipidemia, anemia, hypothyroidism and GERD came into the hospital due to generalized weakness since 1 month. Per patient, she has exertional dyspnea since 1 month which has progressively worsened and prompted this visit. She also complained of fatigue. She denies fever, cough, chest pain, palpitation, or any recent sick contact. PMHx: hypertension, dyslipidemia, anemia, hypothyroidism and GERD Social history: Ex-smoker with 10 pack year history Home medication: Atorvastatin, albuterol, nifedipine, lisinopril, levo thyroxine Allergic history: Penicillin Patient seen and examined at the bedside. Patient is complaining of generalized weakness. Family History: Alzheimer's disease G8 MOTHER, Onset:Unknown (old age and alz per patient) Cardiovascular disease G8 FATHER, Onset:Unknown (Patient states heart vessels were clogged) Allergies: Coded Allergies: Penicillins (Verified Allergy, Unknown, 03/29/25) Home Meds Active Scripts Benzonatate (Benzonatate) 100 Mg Cap, 1-2 CAP PO Q4HR, #60 CAP Prov:BRANDY BATISTA RN IMAGING 02/01/25 Azithromycin (Zithromax Z-Ganesh) 250 Mg Tab, 250 MG PO DAILY for 5 Days, #5 TAB Prov:BRANDY BATISTA RN IMAGING 02/01/25 Albuterol Sulfate (Albuterol Sulfate Hfa) 108 Mcg/Act Aer, 108 MCG IN TID PRN, #1 AER Prov:BRANDY BATISTA RN IMAGING 02/01/25 Ferrous Sulfate (FERROUS SULFATE) 325 Mg Tb, 1 TAB PO BID for 60 Days, #120 TAB 3 Refills Prov:ALICJA JAMES INSURANCE ACCOUNT MANAGER 11/18/23 Reported Medications Nifedipine (Nifedipine ER) 30 Mg Tab 03/29/25 Atorvastatin Calcium (ATORVASTATIN CALCIUM) 20 Mg Tab 03/29/25 Lisinopril (Lisinopril) 40 Mg Tab, 1 TAB PO DAILY 11/17/23 Atorvastatin Calcium (ATORVASTATIN CALCIUM) 20 Mg Tab, 1 TAB PO DAILY 11/17/23 Levothyroxine Sodium (Levothyroxine Sodium) 75 Mcg Tab, 1 TAB PO DAILY 11/17/23 Current Medications Current Medications Medications (Trade) Dose Ordered Sig/Conner Route PRN Reason Start Time Stop Time Status Last Admin Ondansetron HCl (Zofran) 4 mg Q4HP PRN IV NAUSEA / VOMITING 03/29/25 17:30 Acetaminophen (Tylenol Tablet) 650 mg Q6HP PRN PO PAIN SCALE 1-3 OR TEMP>100.4 03/29/25 17:30 Atorvastatin Calcium (Lipitor) 20 mg HS PO 03/29/25 22:00 Levothyroxine Sodium (Synthroid Tablet) 75 mcg DAILY@0600 PO 03/30/25 06:00 03/30/25 05:32 Lisinopril (Zestril Tablet) 40 mg DAILY PO 03/30/25 10:00 03/30/25 09:59 Nifedipine (Procardia Xl (Time-Release)) 30 mg DAILY PO 03/30/25 10:00 03/30/25 10:00 Pantoprazole Sodium (Protonix) 40 mg DAILY IV 03/30/25 10:00 03/30/25 10:00 Vital Signs Vital Signs Date Time Temp Pulse Resp B/P (MAP) Pulse Ox O2 Delivery O2 Flow Rate FiO2 03/30/25 12:12 97.7 74 19 100/61 (74) 97 97.7 03/30/25 07:45 Room Air* 0 21 Physical Exam General Appearance: Alert, Oriented X3, Cooperative, No acute distress HEENT: Atraumatic, PERRLA, EOMI, Mucous membrane moist/pink Respiratory: Clear to auscultation, Normal air movement Cardiovascular: Regular rate, Normal S1, Normal S2, No murmurs, no chest wall tenderness Abdominal: Normal bowel sounds, Soft, No tenderness, No hepatospenomegaly, No masses Extremities: No clubbing, No cyanosis, No edema, Normal pulses, No tendern ess/swelling Skin: No rashes, No breakdown, No significant lesion Neuro: Normal gait, Normal speech, Strength at 5/5 X4 ext, Normal tone, Sensation intact, Cranial nerves 3-12 NL, Reflexes 2+ Psych/Mental Status: Mental status NL, Mood NL Labs/Diagnostic Data Labs Test 03/30/25 05:13 03/29/25 20:23 03/29/25 16:36 03/29/25 12:55 Range/Units White Blood Count 5.0 # 4.4-10.8 10^3/uL Red Blood Count 2.81 L 4.0-5.20 10^6/uL Hemoglobin 8.6 L 12.2-16.2 g/dL Hematocrit 25.2 L 36.0-46.0 % Mean Corpuscular Volume 89.8 80.0-100.0 fL Mean Corpuscular Hemoglobin 30.5 28.0-32.0 pg Mean Corpuscular Hemoglobin Concent 33.9 32.0-36.0 g/dL Red Cell Distribution Width 15.3 H 11.8-14.3 % Platelet Count 277 140-450 10^3/uL Mean Platelet Volume 7.7 6.9-10.8 fL Neutrophils (%) (Auto) 61.3 37.0-80.0 % Lymphocytes (%) (Auto) 22.2 10.0-50.0 % Monocytes (%) (Auto) 11.3 0.0-12.0 % Eosinophils (%) (Auto) 4.0 0.0-7.0 % Basophils (%) (Auto) 1.2 0.0-2.0 % Neutrophils # (Auto) 3.0 1.6-8.6 10 ^3/uL Lymphocytes # (Auto) 1.1 0.4-5.4 10 ^3/uL Monocytes # (Auto) 0.6 0-1.3 10 ^3/uL Eosinophils # (Auto) 0.2 0-0.8 10 ^3/uL Basophils # (Auto) 0.1 0-0.2 10 ^3/uL Nucleated Red Blood Cells 0.0 % Sodium Level 134 #L 136-145 mmol/L Potassium Level 4.1 3.5-5.1 mmol/L Chloride Level 99 98-107 mmol/L Carbon Dioxide Level 25 20-31 mmol/L Anion Gap 10 5-15 Blood Urea Nitrogen 15 9-23 mg/dL Creatinine 0.83 0.550-1.02 mg/dL Glomerular Filtration Rate Calc 70 >90 mL/min BUN/Creatinine Ratio 18.1 10.0-20.0 Serum Glucose 108 H 74-106 mg/dL Calcium Level 9.8 8.7-10.4 mg/dL Total Bilirubin 0.3 0.2-1.0 mg/dL Aspartate Amino Transferase (AST) 23 13-40 U/L Alanine Aminotransferase (ALT) 25 7-40 U/L Alkaline Phosphatase 44 L 46-116 U/L B-Type Natriuretic Peptide 34.12 0-100 pg/mL Total Protein 6.3 5.7-8.2 g/dL Albumin 4.4 3.2-4.8 g/dL Influenza Type A Antigen Negative Negative Influenza Type B Antigen Negative Negative Troponin I High Sensitivity 11 </=34 ng/L Reticulocyte Count (auto) 6.22 H 0.5-1.5 % Lactic Acid Level 0.9 0.4-2.0 mmol/L Iron Level 207 H 50-170 ug/dL Total Iron Binding Capacity 361 250-425 ug/dL Percent Iron Saturation 57.3 H 15-50 % Ferritin 12.3 10-291 ng/mL Vitamin B12 Level 270 211-911 pg/mL Thyroid Stimulating Hormone (TSH) 1.19 0.55-4.78 uIU/mL Test 03/29/25 11:48 Range/Units Urine Color Colorless Yellow Urine Clarity Clear Clear Urine pH 6.5 5.0-9.0 Urine Specific [place] 1.009 1.001-1.035 Urine Protein Negative Negative Urine Ketones Negative Negative Urine Blood Negative Negative /uL Urine Nitrite Negative Negative Urine Bilirubin Negative Negative Urine Urobilinogen Normal Negative mg/dL Urine Leukocyte Esterase Negative Negative /uL Urine RBC 1 0 - 4 /hpf Urine Microscopic WBC 0-5 /HPF Urine Squamous Epithelial Cells None seen <5 /hpf Urine Bacteria None seen None Seen /hpf Urine Glucose Normal Normal mg/dL POC Glucose 119 H 70-106 mg/dl Assessment Generalized weakness, likely due to anemia Hypertension Dyslipidemia Hypothyroidism GERD EKGs shows normal sinus rhythm with no significant ST or T-wave changes Serial trop I and BNP is within normal limits Chest x-ray shows no intrathoracic abnormalities Plan/recommendation * In context of normal echocardiogram, the patient does not need further cardiology workup at the moment * Once anemia corrected, if shortness of breaths persist, may follow with Cardiology on outpatient basis * Rest of plan per primary team Thank you for giving us the opportunity to take care of your patient. Please call back if you have any question/concern. Plan discussed with: Patient, Other (Sister and RN) YOSSI TUCKER Mar 30, 2025 15:02
--- NOTE | 2025-03-30 15:42 | DVHINCON2 ---
Date of service: Mar 30, 2025 Referring Physician Weakness tiredness Reason for Consultation Weakness anemia History of Present Illness EGD year old female with a history of hypertension hyperlipidemia and anemia admitted with complaints of generalized weakness and tiredness patient also has history of GERD no history of any lower GI bleeding or upper GI bleeding or upper GI source or lower GI symptoms Found to be anemic and hence the reason for the GI consult Past Medical History Hypothyroidism anemia hypertension Past Surgical History Hysterectomy Family History: Alzheimer's disease G8 MOTHER, Onset:Unknown (old age and alz per patient) Cardiovascular disease G8 FATHER, Onset:Unknown (Patient states heart vessels were clogged) Family History Noncontributory Social History Denies smoking or drinking foot used to smoke until the age of 51 Allergies: Coded Allergies: Penicillins (Verified Allergy, Unknown, 03/29/25) Home Meds Active Scripts Benzonatate (Benzonatate) 100 Mg Cap, 1-2 CAP PO Q4HR, #60 CAP Prov:BRANDY BATISTA 02/01/25 Azithromycin (Zithromax Z-Ganesh) 250 Mg Tab, 250 MG PO DAILY for 5 Days, #5 TAB Prov:BRANDY BATISTAP 02/01/25 Albuterol Sulfate (Albuterol Sulfate Hfa) 108 Mcg/Act Aer, 108 MCG IN TID PRN, #1 AER Prov:BRANDY BATISTAP 02/01/25 Ferrous Sulfate (FERROUS SULFATE) 325 Mg Tb, 1 TAB PO BID for 60 Days, #120 TAB 3 Refills Prov:ALICJA JAMES NP 11/18/23 Reported Medications Nifedipine (Nifedipine ER) 30 Mg Tab 03/29/25 Atorvastatin Calcium (ATORVASTATIN CALCIUM) 20 Mg Tab 03/29/25 Lisinopril (Lisinopril) 40 Mg Tab, 1 TAB PO DAILY 11/17/23 Atorvastatin Calcium (ATORVASTATIN CALCIUM) 20 Mg Tab, 1 TAB PO DAILY 11/17/23 Levothyroxine Sodium (Levothyroxine Sodium) 75 Mcg Tab, 1 TAB PO DAILY 11/17/23 Current Medications Current Medications Medications (Trade) Dose Ordered Sig/Conner Route PRN Reason Start Time Stop Time Status Last Admin Ondansetron HCl (Zofran) 4 mg Q4HP PRN IV NAUSEA / VOMITING 03/29/25 17:30 Acetaminophen (Tylenol Tablet) 650 mg Q6HP PRN PO PAIN SCALE 1-3 OR TEMP>100.4 03/29/25 17:30 Atorvastatin Calcium (Lipitor) 20 mg HS PO 03/29/25 22:00 Levothyroxine Sodium (Synthroid Tablet) 75 mcg DAILY@0600 PO 03/30/25 06:00 03/30/25 05:32 Lisinopril (Zestril Tablet) 40 mg DAILY PO 03/30/25 10:00 03/30/25 09:59 Nifedipine (Procardia Xl (Time-Release)) 30 mg DAILY PO 03/30/25 10:00 03/30/25 10:00 Pantoprazole Sodium (Protonix) 40 mg DAILY IV 03/30/25 10:00 03/30/25 10:00 Review of Systems Noncontributory Vital Signs Vital Signs Date Time Temp Pulse Resp B/P (MAP) Pulse Ox O2 Delivery O2 Flow Rate FiO2 03/30/25 12:12 97.7 74 19 100/61 (74) 97 97.7 03/30/25 07:45 Room Air* 0 21 Physical Exam Moderately built and nourished female in no acute distress Mild pallor Lungs clear Cardiovascular unremarkable Abdomen is soft no tenderness no rigidity no guarding no masses Extremities no edema Grossly intact neurologically Labs/Diagnostic Data Labs Test 03/30/25 05:13 03/29/25 20:23 03/29/25 16:36 03/29/25 12:55 Range/Units White Blood Count 5.0 # 4.4-10.8 10^3/uL Red Blood Count 2.81 L 4.0-5.20 10^6/uL Hemoglobin 8.6 L 12.2-16.2 g/dL Hematocrit 25.2 L 36.0-46.0 % Mean Corpuscular Volume 89.8 80.0-100.0 fL Mean Corpuscular Hemoglobin 30.5 28.0-32.0 pg Mean Corpuscular Hemoglobin Concent 33.9 32.0-36.0 g/dL Red Cell Distribution Width 15.3 H 11.8-14.3 % Platelet Count 277 140-450 10^3/uL Mean Platelet Volume 7.7 6.9-10.8 fL Neutrophils (%) (Auto) 61.3 37.0-80.0 % Lymphocytes (%) (Auto) 22.2 10.0-50.0 % Monocytes (%) (Auto) 11.3 0.0-12.0 % Eosinophils (%) (Auto) 4.0 0.0-7.0 % Basophils (%) (Auto) 1.2 0.0-2.0 % Neutrophils # (Auto) 3.0 1.6-8.6 10 ^3/uL Lymphocytes # (Auto) 1.1 0.4-5.4 10 ^3/uL Monocytes # (Auto) 0.6 0-1.3 10 ^3/uL Eosinophils # (Auto) 0.2 0-0.8 10 ^3/uL Basophils # (Auto) 0.1 0-0.2 10 ^3/uL Nucleated Red Blood Cells 0.0 % Sodium Level 134 #L 136-145 mmol/L Potassium Level 4.1 3.5-5.1 mmol/L Chloride Level 99 98-107 mmol/L Carbon Dioxide Level 25 20-31 mmol/L Anion Gap 10 5-15 Blood Urea Nitrogen 15 9-23 mg/dL Creatinine 0.83 0.550-1.02 mg/dL Glomerular Filtration Rate Calc 70 >90 mL/min BUN/Creatinine Ratio 18.1 10.0-20.0 Serum Glucose 108 H 74-106 mg/dL Calcium Level 9.8 8.7-10.4 mg/dL Total Bilirubin 0.3 0.2-1.0 mg/dL Aspartate Amino Transferase (AST) 23 13-40 U/L Alanine Aminotransferase (ALT) 25 7-40 U/L Alkaline Phosphatase 44 L 46-116 U/L B-Type Natriuretic Peptide 34.12 0-100 pg/mL Total Protein 6.3 5.7-8.2 g/dL Albumin 4.4 3.2-4.8 g/dL Influenza Type A Antigen Negative Negative Influenza Type B Antigen Negative Negative Troponin I High Sensitivity 11 </=34 ng/L Reticulocyte Count (auto) 6.22 H 0.5-1.5 % Lactic Acid Level 0.9 0.4-2.0 mmol/L Iron Level 207 H 50-170 ug/dL Total Iron Binding Capacity 361 250-425 ug/dL Percent Iron Saturation 57.3 H 15-50 % Ferritin 12.3 10-291 ng/mL Vitamin B12 Level 270 211-911 pg/mL Thyroid Stimulating Hormone (TSH) 1.19 0.55-4.78 uIU/mL Test 03/29/25 11:48 Range/Units Urine Color Colorless Yellow Urine Clarity Clear Clear Urine pH 6.5 5.0-9.0 Urine Specific [place] 1.009 1.001-1.035 Urine Protein Negative Negative Urine Ketones Negative Negative Urine Blood Negative Negative /uL Urine Nitrite Negative Negative Urine Bilirubin Negative Negative Urine Urobilinogen Normal Negative mg/dL Urine Leukocyte Esterase Negative Negative /uL Urine RBC 1 0 - 4 /hpf Urine Microscopic WBC 0-5 /HPF Urine Squamous Epithelial Cells None seen <5 /hpf Urine Bacteria None seen None Seen /hpf Urine Glucose Normal Normal mg/dL POC Glucose 119 H 70-106 mg/dl Assessment EGD year old with a history of hypertension hyperlipidemia anemia hypothyroidism admitted with complaints of generalized weakness no gross GI bleeding no lower GI symptoms history of occasional GERD hypertension and hyperlipidemia physical examination is unremarkable abdomen is soft no tender labs showed that the hemoglobin is 8.5 white count is 7.4 chest x-ray is unremarkable clinical impression is weakness anemia of undetermined etiology GI blood loss can not be excluded Plan/Recommendation Recommend stool studies for Hemoccult Hemoglobin to be followed If Hemoccult-positive or the hemoglobin continues to drop may need GI workup including EGD and colon evaluation Thank you Dr. Yadav Plan discussed with: Patient MOHAN YADAV MD Mar 30, 2025 15:42
[2025-03-30] MEDS: IOHEXOL 300 MG/ML 100ML BOTTLE IJ ONE (16:18)
--- NOTE | 2025-03-30 18:32 | DVH ---
Exam: CT CT AB PEL WITH IV CON ONLY History: abdomen pain Comparison Study: None TECHNIQUE: A digital twisting department end finder image was obtained. During the uneventful, intravenous administration of c ontrast material, multislice data acquisition was obtained through the abdomen and pelvis. The data s et was subsequently reconstructed into axial images. Images were reviewed on a work station using a c ombination of axial and multiplanar using a variety of window levels and settings. RADIATION DOSE: DLP 457.6mGy.cm; CTDI 10.2mGy. FINDINGS: Lung Bases: No acute or significant lung base finding. Normal heart size. No pleural or pericardial effusion. Liver: Fatty liver. Hepatomegaly with the liver measuring 23 cm. No focal lesions. Normal hepatic v ascular enhancement. Gallbladder and Biliary Tree: Unremarkable Spleen: Unremarkable Pancreas: The pancreas is normal in appearance without focal lesions or abnormal enhancement. Adrenal Glands: Unremarkable Kidneys: Kidneys demonstrate normal symmetric enhancement without focal lesions, calculi or hydroneph rosis. Bladder: Unremarkable Bowel: Mild gastric wall thickening. Small bowel and colon are normal in caliber and distribution. T he appendix is not visualized; however, no secondary findings of acute appendicitis identified. Ascites: Absent Lymphadenopathy: No mesenteric, retroperitoneal or periportal lymphadenopathy. Abdominal Wall and Mesentery: Unremarkable. Vasculature: The visualized abdominal aorta is normal in size and caliber. Abdominal and pelvic vess els demonstrate normal enhancement. Severe atherosclerotic vascular disease of the abdominal aorta an d its branches. Pelvic Organs: Unremarkable Musculoskeletal: No aggressive focal bony lesions, acute fractures or dislocation. Soft tissues: Unremarkable. IMPRESSION: Mild gastric wall thickening which can be seen in the in the setting of gastritis. Recommend clinica l correlation. All CT scans at this medical facility are performed using dose modulation techniques as appropriate t o a performed exam including the following: Automated exposure control was utilized; adjustment of th e MA and/or KV according to patient size; and use of iterative reconstruction technique.
[2025-03-31 00:17] LABS: COVID19 ANTIGEN SOFIA FIA NEGATIVE (NEGATIVE)
[2025-03-31 05:00] VITALS: BP 99/51; PULSE 80; RESP 18; TEMP 97.9; O2SAT 97
--- NOTE | 2025-03-31 06:39 | ECG ---
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
--- NOTE | 2025-03-31 06:51 | DVHSR ---
APPROVED REPORT EXAM: Two-dimensional and M-mode echocardiogram with Doppler and color Doppler. Blood Pressure: 128/62 mmHg INDICATION Exertional Dyspnea RISK FACTORS Height: 5' 4", Weight: 169 DIMENSIONS LVDd3.4 (3.8-5.7cm)LA (2D)3.5 (1.9-4.0cm)Aortic Root3.0 (2.0-3.7cm) LVDs2.3 (2.5-4.0cm)LA (MM) (1.9-4.0cm)Aortic Cusp Exc1.6 (1.5-2.0cm) EF (%) 60.0 (55-70%)Rt. Atrium3.3 (1.9-4.0cm)Asc. Aorta cm IVSd1.5 (0.7-1.1cm)RV (D) (1.8-2.4cm) PWd1.4 (0.7-1.1cm) Mitral Valve MitralMitral Stenosis E wave1.00m/sMV Mean GR.4mmHg A wave1.50m/sMV Peak GR.9mmHg E/A ratio0.72D MVAcm2 DECEL [id number] 1/2 Ivyk114mp IVRTmsDop MVA2.14cm2 Aortic Valve Aortic ValveAortic Stenosis V1m/Ajit Mean GR.75mmHg V25.90m/Ajit Peak GR.140mmHg LVOT Diameter2.2 (1.8-2.4cm)Doppler AVAcm2 Pulmonic Valve V20.80m/s Conclusion lvef 60% severe LVH aortic valve has some restricted motion in systole,and some aortic stenosis, however gradient is very high across AV suspicious for LVOT gradient/ HOCM mild to moderate aortic regurg mild mitral stenosis DONALD is supsectd of MV SIDNEY and cMR are necessary for better eval of condition
[2025-03-31 07:22] LABS: Hematocrit 26.5 % (36.0-46.0); Hemoglobin 9.0 g/dL (12.2-16.2)
[2025-03-31 09:00] VITALS: BP 95/47; PULSE 81; RESP 81; TEMP 97.5; O2SAT 96
--- NOTE | 2025-03-31 10:19 | DVHPN2 ---
Consult Progress Note Subjective Other Systems: Upgrade to telemetry. The patient denies any cardiac symptoms at time of assessment Objective vital signs Vital Sign Date Time Temp Pulse Resp B/P (MAP) Pulse Ox O2 Delivery O2 Flow Rate FiO2 03/31/25 09:07 122/58 03/31/25 09:00 97.5 81 81 96 97.5 03/31/25 07:41 Room Air* 0 21 Total Intake and Output 03/30/25 03/30/25 03/31/25 15:00 23:00 07:00 Intake Total 520 ml 600 ml Balance 520 ml 600 ml medications Current Medications Medications Dose Ordered Sig/Conner Route Start Time Stop Time Status Last Admin Dose Admin Ondansetron HCl 4 mg Q4HP PRN IV 03/29/25 17:30 Acetaminophen 650 mg Q6HP PRN PO 03/29/25 17:30 Atorvastatin Calcium 20 mg HS PO 03/29/25 22:00 03/30/25 21:21 20 MG Levothyroxine Sodium 75 mcg DAILY@0600 PO 03/30/25 06:00 03/31/25 05:39 75 MCG Lisinopril 40 mg DAILY PO 03/30/25 10:00 03/31/25 09:07 40 MG Nifedipine 30 mg DAILY PO 03/30/25 10:00 03/31/25 09:06 30 MG Pantoprazole Sodium 40 mg DAILY IV 03/30/25 10:00 03/31/25 09:05 40 MG Metoprolol Tartrate 12.5 mg BID PO 03/31/25 10:00 Examination: GENERAL:Normal, LUNGS:Normal, CVS:Abnormal (S1, S2, systolic murmur noted), NEURO:Normal laboratory and microbiology Laboratory Tests 03/31/25 06:26 03/30/25 05:13 Test 03/30/25 05:13 Range/Units Serum Glucose 108 H 74-106 mg/dL Problem List/Assessment/Plan Problem List/Assessment/Plan 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 Whaley): Transthoracic echocardiogram reveals EF 60% with suspicion for HOCM. The patient was initiated on a beta-eileen per guideline recommendations. Further evaluation recommended if patient is stable from GI standpoint. We will recommend for the patient to undergo a transesophageal echocardiogram and possibly a left and right heart catheterization. GI team currently awaiting stool occult test to see if further GI intervention is needed. In the meantime, continue with medical management and continuous telemetry monitoring. Further recommendations per clinical course and progression. Thank you for allowing us to care for this patient. Please call with any questions or concerns. This medical document was created using an electronic medical record system with voice recognition software and computerized dictation system. Although this document has been carefully reviewed, there might still be some phonetic and typographical errors. Occasional wrong-word or ``sound-alike substitutions may have occurred due to the inherent limitations of voice recognition software. These areas are purely typographical due to imperfections of the software programs and do not reflect any compromise in the patient's medical care. Please read the chart carefully and recognize, using context, where these substitutions have occurred. Plan discussed with: Patient Date of Service: Mar 31, 2025 Billing Provider: FAUSTINO BENNETT Common Visit Codes: [id number] INP/OBS CARE(HIGH) FAUSTINO BENNETT Mar 31, 2025 10:19
--- NOTE | 2025-03-31 10:34 | DVHPN2 ---
Reviewed: Care Plan, H&P, Labs, Medications, Previous Orders, Radiology Changes from previous H/P or p: No Changes Objective Vitals Vital Signs Date Time Temp Pulse Resp B/P (MAP) Pulse Ox O2 Delivery O2 Flow Rate FiO2 03/31/25 09:07 122/58 03/31/25 09:00 97.5 81 81 96 97.5 03/31/25 07:41 Room Air* 0 21 Intake/Output Intake and Output 03/31/25 07:00 Intake Total 1120 ml Balance 1120 ml Intake Oral 1120 ml # Voids 3 # Bowel Movements 2 Medications Current Medications Medications Dose Ordered Sig/Conner Route Start Time Stop Time Status Last Admin Dose Admin Ondansetron HCl 4 mg Q4HP PRN IV 03/29/25 17:30 Acetaminophen 650 mg Q6HP PRN PO 03/29/25 17:30 Atorvastatin Calcium 20 mg HS PO 03/29/25 22:00 03/30/25 21:21 20 MG Levothyroxine Sodium 75 mcg DAILY@0600 PO 03/30/25 06:00 03/31/25 05:39 75 MCG Lisinopril 40 mg DAILY PO 03/30/25 10:00 03/31/25 09:07 40 MG Nifedipine 30 mg DAILY PO 03/30/25 10:00 03/31/25 09:06 30 MG Pantoprazole Sodium 40 mg DAILY IV 03/30/25 10:00 03/31/25 09:05 40 MG Metoprolol Tartrate 12.5 mg BID PO 03/31/25 10:00 Laboratory Results Laboratory Tests 03/30/25 05:13 03/31/25 06:26 Urinalysis Test 03/29/25 11:48 Urine Color Colorless (Yellow) Urine Clarity Clear (Clear) Urine pH 6.5 (5.0-9.0) Urine Specific [place] 1.009 (1.001-1.035) Urine Protein Negative (Negative) Urine Ketones Negative (Negative) Urine Blood Negative /uL (Negative) Urine Nitrite Negative (Negative) Urine Bilirubin Negative (Negative) Urine Urobilinogen Normal mg/dL (Negative) Urine Leukocyte Esterase Negative /uL (Negative) Urine RBC 1 /hpf (0 - 4) Urine Microscopic WBC /HPF (0-5) Urine Squamous Epithelial Cells None seen /hpf (<5) Urine Bacteria None seen /hpf (None Seen) Urine Glucose Normal mg/dL (Normal) Labs and/or images reviewed: Labs reviewed by me, Image(s) reviewed by me Assessment/Plan Assessment/Plan Generalized weakness Anemia hemoglobin 8.5 and stable at 9.0 Dr. Yadav advised outpatient colonoscopy Hypertension Hypercholesterolemia Hypothyroidism: TSH normal continue Synthroid GERD History of smoking Exertional dyspnea rule out congestive heart failure: Echocardiogram 60 percent ejection fraction cardiology consult by Dr. Whaley appreciated Hypertrophic obstructive cardiomyopathy: Metoprolol, Dr. Whaley planning for SIDNEY Chest x-ray negative Flu test negative Meg test negative Plan discussed with: Patient My Orders Orders - VANESSA CAROLINA MD Procedure Category Date Status Time Echo 2d Mode Cardiac US 03/30/25 Resulted DOP 11:09 * Gi Dvh Java Software CONS 03/30/25 Transmitted 11:09 * Cardiology Consult CONS 03/30/25 Transmitted 11:12 Date of Service: Mar 31, 2025 Billing Provider: VANESSA CAROLINA MD Common Visit Codes: [id number] INP/OBS CARE(HIGH) VNAESSA CAROLINA MD Mar 31, 2025 10:34
[2025-03-31] MEDS: METOPROLOL TARTRATE 25 MG TAB PO SCH (11:57)
[2025-03-31 13:00] VITALS: BP 116/57; PULSE 72; RESP 18; TEMP 97.8; O2SAT 94
--- NOTE | 2025-03-31 13:43 | DVHPN2 ---
Progress Note - Dictate Date Seen: Mar 31, 2025 Medical Necessity Reason Pt with a Central, PICC or Fol: No Subjective Patient with complaints of anemia and weakness has since stool studies now sent for occult blood No gross bleed vital signs Vital Sign Date Time Temp Pulse Resp B/P (MAP) Pulse Ox O2 Delivery O2 Flow Rate FiO2 03/31/25 12:59 65 116/48 03/31/25 09:00 97.5 81 96 97.5 03/31/25 07:41 Room Air* 0 21 Total Intake and Output 03/30/25 03/30/25 03/31/25 15:00 23:00 07:00 Intake Total 520 ml 600 ml Balance 520 ml 600 ml medications Current Medications Medications Dose Ordered Sig/Conner Route Start Time Stop Time Status Last Admin Dose Admin Ondansetron HCl 4 mg Q4HP PRN IV 03/29/25 17:30 Acetaminophen 650 mg Q6HP PRN PO 03/29/25 17:30 Atorvastatin Calcium 20 mg HS PO 03/29/25 22:00 03/30/25 21:21 20 MG Levothyroxine Sodium 75 mcg DAILY@0600 PO 03/30/25 06:00 03/31/25 05:39 75 MCG Lisinopril 40 mg DAILY PO 03/30/25 10:00 03/31/25 09:07 40 MG Nifedipine 30 mg DAILY PO 03/30/25 10:00 03/31/25 09:06 30 MG Pantoprazole Sodium 40 mg DAILY IV 03/30/25 10:00 03/31/25 09:05 40 MG Metoprolol Tartrate 12.5 mg BID PO 03/31/25 10:00 03/31/25 11:57 12.5 MG objective Abdomen is soft nontender no masses Hemoglobin stable laboratory and microbiology Laboratory Tests 03/31/25 06:26 03/30/25 05:13 Test 03/30/25 05:13 Range/Units Serum Glucose 108 H 74-106 mg/dL Assessment/Plan EGD year old with a history of hypertension hyperlipidemia anemia hypothyroidism admitted with complaints of generalized weakness no gross GI bleeding no lower GI symptoms history of occasional GERD hypertension and hyperlipidemia physical examination is unremarkable abdomen is soft no tender labs showed that the hemoglobin is 8.5 white count is 7.4 chest x-ray is unremarkable clinical impression is weakness anemia of undetermined etiology GI blood loss can not be excluded Stool test for occult blood which has been possibly done Upon the to the stool test was positive for blood and the anemia persist may need further GI workup thank you Dr. Yadav Plan discussed with: Patient MOHAN YADAV MD Mar 31, 2025 13:43
[2025-03-31 16:52] VITALS: BP 102/44; PULSE 75; RESP 18; TEMP 96.9; O2SAT 97
[2025-03-31 21:00] VITALS: BP 104/44; PULSE 72; RESP 16; TEMP 98; O2SAT 94
[2025-04-01] VITALS (7 sets, daily range): BP systolic 97–129; BP diastolic 45–63; PULSE 70–85; RESP 17–19; TEMP 97.7–98.2; O2SAT 93–96
--- NOTE | 2025-04-01 11:44 | DVHPN2 ---
Reviewed: Care Plan, H&P, Labs, Medications, Previous Orders, Radiology Changes from previous H/P or p: No Changes Objective Vitals Vital Signs Date Time Temp Pulse Resp B/P (MAP) Pulse Ox O2 Delivery O2 Flow Rate FiO2 04/01/25 10:00 97/57 04/01/25 09:00 98.0 81 19 96 98.0 04/01/25 08:02 Room Air* 0 21 Intake/Output Intake and Output 04/01/25 07:00 Intake Total 1856 ml Balance 1856 ml Intake Oral 1856 ml # Voids 7 # Bowel Movements 3 Medications Current Medications Medications Dose Ordered Sig/Conner Route Start Time Stop Time Status Last Admin Dose Admin Ondansetron HCl 4 mg Q4HP PRN IV 03/29/25 17:30 Acetaminophen 650 mg Q6HP PRN PO 03/29/25 17:30 Atorvastatin Calcium 20 mg HS PO 03/29/25 22:00 03/31/25 21:24 20 MG Levothyroxine Sodium 75 mcg DAILY@0600 PO 03/30/25 06:00 04/01/25 05:41 75 MCG Lisinopril 40 mg DAILY PO 03/30/25 10:00 03/31/25 09:07 40 MG Nifedipine 30 mg DAILY PO 03/30/25 10:00 03/31/25 09:06 30 MG Pantoprazole Sodium 40 mg DAILY IV 03/30/25 10:00 04/01/25 10:52 40 MG Metoprolol Tartrate 12.5 mg BID PO 03/31/25 10:00 03/31/25 11:57 12.5 MG Laboratory Results Laboratory Tests 03/30/25 05:13 03/31/25 06:26 Urinalysis Test 03/29/25 11:48 Urine Color Colorless (Yellow) Urine Clarity Clear (Clear) Urine pH 6.5 (5.0-9.0) Urine Specific [place] 1.009 (1.001-1.035) Urine Protein Negative (Negative) Urine Ketones Negative (Negative) Urine Blood Negative /uL (Negative) Urine Nitrite Negative (Negative) Urine Bilirubin Negative (Negative) Urine Urobilinogen Normal mg/dL (Negative) Urine Leukocyte Esterase Negative /uL (Negative) Urine RBC 1 /hpf (0 - 4) Urine Microscopic WBC /HPF (0-5) Urine Squamous Epithelial Cells None seen /hpf (<5) Urine Bacteria None seen /hpf (None Seen) Urine Glucose Normal mg/dL (Normal) Labs and/or images reviewed: Labs reviewed by me, Image(s) reviewed by me Assessment/Plan Assessment/Plan Generalized weakness Anemia hemoglobin 8.5 and stable at 9.0 Dr. Yadav advised outpatient colonoscopy Hypertension Hypercholesterolemia Hypothyroidism: TSH normal continue Synthroid GERD History of smoking Exertional dyspnea rule out congestive heart failure: Echocardiogram 60 percent ejection fraction cardiology consult by Dr. Whaley appreciated Hypertrophic obstructive cardiomyopathy: Metoprolol, Dr. Whaley planning for SIDNEY Chest x-ray negative Flu test negative Meg test negative Plan discussed with: Patient Date of Service: Apr 01, 2025 Billing Provider: VANESSA CAROLINA MD Common Visit Codes: [id number] INP/OBS CARE(HIGH) VANESSA CAROLINA MD Apr 01, 2025 11:44
--- NOTE | 2025-04-01 13:48 | DVHPN2 ---
Consult Progress Note Subjective Other Systems: Patient in normal sinus rhythm on nurse monitoring Denies any cardiac symptoms Objective vital signs Vital Sign Date Time Temp Pulse Resp B/P (MAP) Pulse Ox O2 Delivery O2 Flow Rate FiO2 04/01/25 12:21 77 109/53 04/01/25 09:00 98.0 19 96 98.0 04/01/25 08:02 Room Air* 0 21 Total Intake and Output 03/31/25 03/31/25 04/01/25 15:00 23:00 07:00 Intake Total 558 ml 698 ml 600 ml Balance 558 ml 698 ml 600 ml medications Current Medications Medications Dose Ordered Sig/Conner Route Start Time Stop Time Status Last Admin Dose Admin Ondansetron HCl 4 mg Q4HP PRN IV 03/29/25 17:30 Acetaminophen 650 mg Q6HP PRN PO 03/29/25 17:30 Atorvastatin Calcium 20 mg HS PO 03/29/25 22:00 03/31/25 21:24 20 MG Levothyroxine Sodium 75 mcg DAILY@0600 PO 03/30/25 06:00 04/01/25 05:41 75 MCG Lisinopril 40 mg DAILY PO 03/30/25 10:00 03/31/25 09:07 40 MG Nifedipine 30 mg DAILY PO 03/30/25 10:00 03/31/25 09:06 30 MG Pantoprazole Sodium 40 mg DAILY IV 03/30/25 10:00 04/01/25 10:52 40 MG Metoprolol Tartrate 12.5 mg BID PO 03/31/25 10:00 04/01/25 12:21 12.5 MG Examination: GENERAL:Normal, LUNGS:Normal, CVS:Normal, NEURO:Normal laboratory and microbiology Laboratory Tests 03/31/25 06:26 03/30/25 05:13 Test 03/30/25 05:13 Range/Units Serum Glucose 108 H 74-106 mg/dL Problem List/Assessment/Plan Problem List/Assessment/Plan 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 Whaley): Transthoracic echocardiogram reveals EF 60% with suspicion for HOCM. The patient was initiated on a beta-eileen per guideline recommendations. Further evaluation recommended if patient is stable from GI standpoint. We will recommend for the patient to undergo a transesophageal echocardiogram and possibly a left and right heart catheterization. GI team currently awaiting stool occult test to see if further GI intervention is needed. In the meantime, continue with medical management and continuous telemetry monitoring. Further recommendations per clinical course and progression. Thank you for allowing us to care for this patient. Please call with any questions or concerns. This medical document was created using an electronic medical record system with voice recognition software and computerized dictation system. Although this document has been carefully reviewed, there might still be some phonetic and typographical errors. Occasional wrong-word or ``sound-alike substitutions may have occurred due to the inherent limitations of voice recognition software. These areas are purely typographical due to imperfections of the software programs and do not reflect any compromise in the patient's medical care. Please read the chart carefully and recognize, using context, where these substitutions have occurred. Plan discussed with: Patient Date of Service: Apr 01, 2025 Billing Provider: FAUSTINO BENNETT Common Visit Codes: [id number] INP/OBS CARE(HIGH) FAUSTINO BENNETT Apr 01, 2025 13:48
--- NOTE | 2025-04-01 14:35 | DVHPN2 ---
Progress Note - Dictate Date Seen: Apr 01, 2025 Medical Necessity Reason Pt with a Central, PICC or Fol: No Subjective Patient with complaints of anemia and weakness gross bleeding Waiting for Stool studies for blood No gross bleeding Patient also needs some cardiac workup and wants know the GI is clear vital signs Vital Sign Date Time Temp Pulse Resp B/P (MAP) Pulse Ox O2 Delivery O2 Flow Rate FiO2 04/01/25 12:21 77 109/53 04/01/25 09:00 98.0 19 96 98.0 04/01/25 08:02 Room Air* 0 21 Total Intake and Output 03/31/25 03/31/25 04/01/25 15:00 23:00 07:00 Intake Total 558 ml 698 ml 600 ml Balance 558 ml 698 ml 600 ml medications Current Medications Medications Dose Ordered Sig/Conner Route Start Time Stop Time Status Last Admin Dose Admin Ondansetron HCl 4 mg Q4HP PRN IV 03/29/25 17:30 Acetaminophen 650 mg Q6HP PRN PO 03/29/25 17:30 Atorvastatin Calcium 20 mg HS PO 03/29/25 22:00 03/31/25 21:24 20 MG Levothyroxine Sodium 75 mcg DAILY@0600 PO 03/30/25 06:00 04/01/25 05:41 75 MCG Lisinopril 40 mg DAILY PO 03/30/25 10:00 03/31/25 09:07 40 MG Nifedipine 30 mg DAILY PO 03/30/25 10:00 03/31/25 09:06 30 MG Pantoprazole Sodium 40 mg DAILY IV 03/30/25 10:00 04/01/25 10:52 40 MG Metoprolol Tartrate 12.5 mg BID PO 03/31/25 10:00 04/01/25 12:21 12.5 MG objective Abdomen is soft nontender no masses Hemoglobin stable Stool studies and depending upon that may need GI workup as necessary including EGD colon etc. Thank you Dr. Yadav laboratory and microbiology Laboratory Tests 03/31/25 06:26 03/30/25 05:13 Test 03/30/25 05:13 Range/Units Serum Glucose 108 H 74-106 mg/dL Assessment/Plan EGD year old with a history of hypertension hyperlipidemia anemia hypothyroidism admitted with complaints of generalized weakness no gross GI bleeding no lower GI symptoms history of occasional GERD hypertension and hyperlipidemia physical examination is unremarkable abdomen is soft no tender labs showed that the hemoglobin is 8.5 white count is 7.4 chest x-ray is unremarkable clinical impression is weakness anemia of undetermined etiology GI blood loss can not be excluded Stool test for occult blood which has been possibly done Upon the to the stool test was positive for blood and the anemia persist may need further GI workup thank you Dr. Yadav Plan discussed with: Patient MOHAN YADAV MD Apr 01, 2025 14:35
[2025-04-02] VITALS (13 sets, daily range): BP systolic 110–147; BP diastolic 47–80; PULSE 69–95; RESP 12–18; TEMP 97.4–98.1; O2SAT 92–97
[2025-04-02 06:55] LABS: Hematocrit 27.2 % (36.0-46.0); Hemoglobin 9.2 g/dL (12.2-16.2); Mean Corpuscular Hemoglobin 30.0 pg (28.0-32.0); Mean Corpuscular Volume 88.8 fL (80.0-100.0); Nucleated Red Blood Cells % 0.0 %
[2025-04-02 07:08] LABS: INR 1.02 (0.9-1.15); Partial Thromboplastin Time 21.9 SEC (24.5-34.5); Prothrombin Time 10.8 sec (9.3-11.8)
[2025-04-02 07:12] LABS: Chloride 98 mmol/L (98-107); Potassium 4.3 mmol/L (3.5-5.1)
[2025-04-02 07:13] LABS: Anion Gap 10 (5-15); Calcium 9.9 mg/dL (8.7-10.4); Carbon Dioxide 26 mmol/L (20-31)
[2025-04-02 07:18] LABS: BUN/Creatinine Ratio 17.4 (10.0-20.0); Blood Urea Nitrogen 16 mg/dL (9-23); Glucose 101 mg/dL (74-106)
--- NOTE | 2025-04-02 07:20 | ECG ---
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
[2025-04-02 07:23] LABS: Sodium 134 mmol/L (136-145)
--- NOTE | 2025-04-02 08:13 | DVH ---
CHEST RADIOGRAPH Indication: PRE OP/pain Technique: Single frontal view of the chest was obtained Comparison: XY CHEST PORTABLE on DOS: 03/29/25, XY CHEST XRAY 1 VIEW on DOS: 02/01/25, XY CHEST PORTABLE on DOS: 05/27/24, XY CHEST PORTABLE on DOS: 11/17/23 FINDINGS: Lines and Tubes: None Lungs: No focal consolidation. Pleura: No effusion. No pneumothorax. Cardiomediastinal contours: Unremarkable Bones: No acute osseous abnormality. IMPRESSION: No acute cardiopulmonary disease.
[2025-04-02] MEDS: fentaNYL CITRATE 100 MCG/2 ML VL IV ONE (10:30)
[2025-04-02] MEDS: diphenhdrAMINE HCL 50 MG/1 ML VL IV ONE (10:30)
[2025-04-02] MEDS: LIDOCAINE VISCOUS 2% 15ML UD PO ONE (10:30)
[2025-04-02] MEDS: MIDAZOLAM HCL 2MG/2ML 2ml VIAL (1mg/ml) IV ONE (10:30)
[2025-04-02] MEDS: ANGIOMAX 250 MG VIAL IV ONE (10:33)
[2025-04-02] MEDS: VERAPAMIL 2.5MG/ML INJ 2ML VIAL IV ONE (10:33)
[2025-04-02] MEDS: HEPARIN SODIUM (PORCINE) 5000 UNITS/ML 1ML VIAL ONE (10:33)
[2025-04-02] MEDS: SODIUM CHL 0.9% 0 ML ONE (10:34)
[2025-04-02] MEDS: fentaNYL CITRATE 100 MCG/2 ML VL ONE (10:34)
[2025-04-02] MEDS: LIDOCAINE 2%HCL (LOCAL ANESTH.) INJ 20ML MDV ONE (10:46)
--- NOTE | 2025-04-02 11:10 | DVHPN2 ---
Reviewed: Care Plan, H&P, Labs, Medications, Previous Orders, Radiology Changes from previous H/P or p: No Changes Objective Vitals Vital Signs Date Time Temp Pulse Resp B/P (MAP) Pulse Ox O2 Delivery O2 Flow Rate FiO2 04/02/25 08:30 97.7 76 16 131/72 (91) 95 97.7 04/02/25 08:09 Room Air* 0 21 Intake/Output Intake and Output 04/02/25 07:00 Intake Total 1358 ml Balance 1358 ml Intake Oral 1358 ml # Voids 5 Medications Current Medications Medications Dose Ordered Sig/Conner Route Start Time Stop Time Status Last Admin Dose Admin Ondansetron HCl 4 mg Q4HP PRN IV 03/29/25 17:30 Acetaminophen 650 mg Q6HP PRN PO 03/29/25 17:30 Atorvastatin Calcium 20 mg HS PO 03/29/25 22:00 04/01/25 21:16 20 MG Levothyroxine Sodium 75 mcg DAILY@0600 PO 03/30/25 06:00 04/02/25 05:31 75 MCG Lisinopril 40 mg DAILY PO 03/30/25 10:00 03/31/25 09:07 40 MG Nifedipine 30 mg DAILY PO 03/30/25 10:00 03/31/25 09:06 30 MG Pantoprazole Sodium 40 mg DAILY IV 03/30/25 10:00 04/02/25 09:51 40 MG Metoprolol Tartrate 12.5 mg BID PO 03/31/25 10:00 04/01/25 21:16 12.5 MG Laboratory Results Laboratory Tests 04/02/25 05:43 Chemistry Test 04/02/25 05:43 Calcium Level 9.9 mg/dL (8.7-10.4) Coagulation Test 04/02/25 05:43 Prothrombin Time 10.8 sec (9.3-11.8) Prothrombin Time INR 1.02 (0.9-1.15) Activated Partial Thromboplast Time 21.9 SEC (24.5-34.5) L Urinalysis Test 03/29/25 11:48 Urine Color Colorless (Yellow) Urine Clarity Clear (Clear) Urine pH 6.5 (5.0-9.0) Urine Specific [place] 1.009 (1.001-1.035) Urine Protein Negative (Negative) Urine Ketones Negative (Negative) Urine Blood Negative /uL (Negative) Urine Nitrite Negative (Negative) Urine Bilirubin Negative (Negative) Urine Urobilinogen Normal mg/dL (Negative) Urine Leukocyte Esterase Negative /uL (Negative) Urine RBC 1 /hpf (0 - 4) Urine Microscopic WBC /HPF (0-5) Urine Squamous Epithelial Cells None seen /hpf (<5) Urine Bacteria None seen /hpf (None Seen) Urine Glucose Normal mg/dL (Normal) Labs and/or images reviewed: Labs reviewed by me, Image(s) reviewed by me Assessment/Plan Assessment/Plan Generalized weakness Anemia hemoglobin 8.5 and stable at 9.0 stool occult blood negative Dr Yadav advised outpatient colonoscopy: Hypertension Hypercholesterolemia Hypothyroidism: TSH normal continue Synthroid GERD History of smoking Exertional dyspnea rule out congestive heart failure: Echocardiogram 60 percent ejection fraction cardiology consult by Dr. Whaley appreciated Hypertrophic obstructive cardiomyopathy: Metoprolol, getting SIDNEY and left heart catheterization today Chest x-ray negative Flu test negative Meg test negative Plan discussed with: Patient Date of Service: Apr 02, 2025 Billing Provider: VANESSA CAROLINA MD Common Visit Codes: [id number] INP/OBS CARE(HIGH) VANESSA CAROLINA MD Apr 02, 2025 11:10
--- NOTE | 2025-04-02 12:35 | DVHOP2 ---
Operative Report Operative Report CARDIAC ASSOCIATE RELATIONS SPECIALIST PROCEDURE REPORT [place], [place] Date of Service: 04/02/25 [place] Supervisor: Meenakshi Gupta MD PROCEDURES PERFORMED: trans esophageal echocardiogram, conscious sedation <15 mins, doppler assesment complete SIDNEY, DC cardioversion PREOPERATIVE DIAGNOSES: r/o HOCM/ ro POSTOP DIAGNOSIS: sigmoid septum DESCRIPTION OF PROCEDURE: The patient or appropriate family signed informed consent understanding the risks, benefits and alternatives of the procedure, they wished to proceed. The patient was brought to the cardiac laboratory analyst in n.p.o. state. the patient was given 15 ml of oral viscous lidocaine. the patient was placed in a left lateral decubitus position with bite block in mouth. NExt conscious sedation was administered per laboratory analyst protocol with 1__ mg of versed and __50_ mcg of fentanyl. Next a SIDNEY probe was advanced to the mid esophagus with ease and multiple planar images obtained. At the completion of the procedure , probe was removed and there were no immediate complications. FINDINGS: Left Ventricle: Normal LV size and function, LVEF estimated at 60% severe asymetric septal hypertophy Right Ventricle: NOrmal RV size and function Left atrium: enlarged, Right atrium: normal Left atrial appendage: no thrombus noted, Aortic valve: trileaflet valve, no severe or AI Mitral Valve: structurally normal, trace MR Tricuspid Valve: mild tricuspid regurgitaiton, no TS Pulmonic Valve: strucutrally normal, no severe PIor PS Interatrial septum: negative color flow for R to L shunt Ascending aorta: no severe plaquing LVOT: turbulent flow noted across LV on surface echo again today, gradient is much less about 10 mmhg across lvot and V max was closer to 2m/s MEENAKSHI GUPTA MD Apr 02, 2025 12:35
--- NOTE | 2025-04-02 12:37 | DVHOP2 ---
Operative Report Operative Report CARDIAC HAMMER OPERATOR PROCEDURE REPORT [place], [place] Date of Service: 04/02/25 [employer] Heater Installer: Meenakshi Gupta MD PROCEDURES PERFORMED: Coronary angiogram, left heart catheterization, conscious sedation administration and supervision, less than 15 minutes; fluoroscopy use and interpretation. PREOPERATIVE DIAGNOSES: r/o HOCM POSTOP DIAGNOSIS: sigmoid septum DESCRIPTION OF PROCEDURE: The patient or appropriate family signed informed consent understanding the risks, benefits and alternatives of the procedure, they wished to proceed. The patient was brought to the cardiac industrial laborer in n.p.o. state. The patient was prepped in a sterile fashion. Sedation was used per cardiac cath protocol. I administered 2 mL of 2% lidocaine to the right wrist. With an antegrade front wall puncture. I cannulated the right radial artery and placed a 6-[place] Glidesheath slender. Next, an intra-arterial spasmolytic was administered. Next, a - 5French Kipton catheter an6f pigtail and were used for coronary angiogram and LVEDP measurement and pressure pullback. At the completion of procedure, all guides and wires were removed, and there were no immediate complications. 3000 U of iv heparin given. FINDINGS: RCA: Moderate vessel off the right sinus of Valsalva, there is no severe flow limiting stenosis. mild diffuse plaque. LEFT MAIN: Moderate size left main, it bifurcates into LAD and circumflex. CIRCUMFLEX: Moderate caliber vessel coming off the left main with no flow limiting stenosis. LAD: LAD is a moderate caliber vessel coming of the left main. modeate luminal irregularities LVEDP of 14 mmhg LV to AO P2p of 5 mmhg 142 to 137 CONCLUSIONS: 1. mild CAD 2. no major LVOT gradient noted on cath PLAN: Aggressive risk factor modification and medical management for the patient. MEENAKSHI GUPTA MD Apr 02, 2025 12:37
--- NOTE | 2025-04-02 12:38 | DVHPN2 ---
Progress Note Date Seen: Apr 02, 2025 Medical Necessity Reason Pt with a Central, PICC or Fol: No Subjective Patient reports: Feels better Other Systems: sp cath andtee Objective vital signs Vital Sign Date Time Temp Pulse Resp B/P (MAP) Pulse Ox O2 Delivery O2 Flow Rate FiO2 04/02/25 08:30 97.7 76 16 131/72 (91) 95 97.7 04/02/25 08:09 Room Air* 0 21 Total Intake and Output 04/01/25 04/01/25 04/02/25 15:00 23:00 07:00 Intake Total 358 ml 500 ml 500 ml Balance 358 ml 500 ml 500 ml medications Current Medications Medications Dose Ordered Sig/Conner Route Start Time Stop Time Status Last Admin Dose Admin Ondansetron HCl 4 mg Q4HP PRN IV 03/29/25 17:30 Acetaminophen 650 mg Q6HP PRN PO 03/29/25 17:30 Atorvastatin Calcium 20 mg HS PO 03/29/25 22:00 04/01/25 21:16 20 MG Levothyroxine Sodium 75 mcg DAILY@0600 PO 03/30/25 06:00 04/02/25 05:31 75 MCG Lisinopril 40 mg DAILY PO 03/30/25 10:00 03/31/25 09:07 40 MG Nifedipine 30 mg DAILY PO 03/30/25 10:00 03/31/25 09:06 30 MG Pantoprazole Sodium 40 mg DAILY IV 03/30/25 10:00 04/02/25 09:51 40 MG Metoprolol Tartrate 12.5 mg BID PO 03/31/25 10:00 04/01/25 21:16 12.5 MG Examination: GENERAL:Abnormal, HEENT:Abnormal, LUNGS:Abnormal, CVS:Abnormal, ABDOMEN:Abnormal laboratory and microbiology Laboratory Tests 04/02/25 05:43 Test 04/02/25 05:43 Range/Units Serum Glucose 101 74-106 mg/dL Problem List/Assessment/Plan Problem List/Assessment/Plan r/o HOCM anemia sob no severe c ad no major LVOT gradient, likely pt has sigmoid septum and less likely true hocm cv cleared for dc home fu gi recs will sign off encourage low dose BB and judicious fluids at home Plan discussed with: Patient My Orders My Orders Orders - MEENAKSHI GUPTA MD Procedure Category Date Status Time Cl Left Heart Cath CL 04/02/25 Taken 10:17 Dietary Evaluation Review Comments: 1) Encourage optimal PO intake 2) Refer to outpatient RD for weight management 3) Follow-up with cardiology and gastroenterology 4) Continue to monitor I&O, labs, and skin integrity Expected Outcomes/Goals: 1) appetite and labs to improve 2) f/u in 3-5 days Date of Service: Apr 02, 2025 Billing Provider: MEENAKSHI GUPTA MD Common Visit Codes: NOT BILLABLE MEENAKSHI GUPTA MD Apr 02, 2025 12:38
--- NOTE | 2025-04-02 22:42 | DVHPN2 ---
Progress Note - Dictate Date Seen: Apr 02, 2025 Medical Necessity Reason Pt with a Central, PICC or Fol: No Subjective 84 year old female with a history of hypertension hyperlipidemia and anemia admitted with complaints of generalized weakness and tiredness patient also has history of GERD no history of any lower GI bleeding or upper GI bleeding or upper GI source or lower GI symptoms Patient is mildly anemic but H&H is stable Patient underwent a SIDNEY today which was normal She had a previous endoscopy and colonoscopy about five years ago and she believes some colon polyps were removed Her stool for occult blood was negative vital signs Vital Sign Date Time Temp Pulse Resp B/P (MAP) Pulse Ox O2 Delivery O2 Flow Rate FiO2 04/02/25 21:40 95 120/47 04/02/25 21:00 97.7 18 92 97.7 04/02/25 08:09 Room Air* 0 21 Total Intake and Output 04/01/25 04/01/25 04/02/25 15:00 23:00 07:00 Intake Total 358 ml 500 ml 500 ml Balance 358 ml 500 ml 500 ml medications Current Medications Medications Dose Ordered Sig/Conner Route Start Time Stop Time Status Last Admin Dose Admin Ondansetron HCl 4 mg Q4HP PRN IV 03/29/25 17:30 Acetaminophen 650 mg Q6HP PRN PO 03/29/25 17:30 Atorvastatin Calcium 20 mg HS PO 03/29/25 22:00 04/02/25 21:39 20 MG Levothyroxine Sodium 75 mcg DAILY@0600 PO 03/30/25 06:00 04/02/25 05:31 75 MCG Lisinopril 40 mg DAILY PO 03/30/25 10:00 03/31/25 09:07 40 MG Nifedipine 30 mg DAILY PO 03/30/25 10:00 03/31/25 09:06 30 MG Pantoprazole Sodium 40 mg DAILY IV 03/30/25 10:00 04/02/25 09:51 40 MG Metoprolol Tartrate 12.5 mg BID PO 03/31/25 10:00 04/02/25 21:40 12.5 MG objective Patient is awake alert in no acute distress Pupils equal and react to light, extraocular movements intact Lungs clear, CVS S1-S2 regular rate rhythm Abdomen is soft nontender no masses laboratory and microbiology Laboratory Tests 04/02/25 05:43 Test 04/02/25 05:43 Range/Units Serum Glucose 101 74-106 mg/dL CT SCAN ABD PELVIS IMPRESSION: Mild gastric wall thickening which can be seen in the in the setting of gastritis. Recommend clinical correlation. Problems(with codes): (1) Gastritis (2) Generalized weakness (3) Symptomatic anemia (4) Weak Prognosis Plan Patient is currently hemodynamically stable with no active GI bleeding Her stool for occult blood is negative CT of the abdomen was suggestive of mild gastritis Last colonoscopy was about five years ago Continue Protonix 40 mg p.o. twice a day Carafate 1 g p.o. twice a day Her H&H is stable and we will monitor labs Patient has been advised outpatient follow up with me to discuss elective panendoscopy Patient is undergoing cardiac workup and angiography at this time Dietary Evaluation Review Comments: 1) Encourage optimal PO intake 2) Refer to outpatient RD for weight management 3) Follow-up with cardiology and gastroenterology 4) Continue to monitor I&O, labs, and skin integrity Expected Outcomes/Goals: 1) appetite and labs to improve 2) f/u in 3-5 days Plan discussed with: Patient ANASTASIYA JENKINS MD Apr 02, 2025 22:41
[2025-04-03 01:00] VITALS: BP 121/65; PULSE 80; RESP 17; TEMP 97.1; O2SAT 96
[2025-04-03 05:00] VITALS: BP 118/54; PULSE 75; RESP 17; TEMP 97.8; O2SAT 93
[2025-04-03] MEDS: SUCRALFATE 1 GM/10 ML ORAL SUSP PO SCH (05:34)
[2025-04-03 08:00] VITALS: PULSE 82
[2025-04-03 08:14] VITALS: PULSE 76; RESP 16; O2SAT 96
[2025-04-03 08:30] VITALS: BP 117/55; PULSE 76; RESP 16; TEMP 97.7; O2SAT 96
[2025-04-03] MEDS ORDERED: SUCR1TAB31 PO (12:06)
[2025-04-03] MEDS ORDERED: PANT40T PO (12:06)
--- NOTE | 2025-04-03 12:07 | DVHPN2 ---
Reviewed: Care Plan, H&P, Labs, Medications, Previous Orders, Radiology Changes from previous H/P or p: No Changes Objective Vitals Vital Signs Date Time Temp Pulse Resp B/P (MAP) Pulse Ox O2 Delivery O2 Flow Rate FiO2 04/03/25 09:39 76 117/55 04/03/25 08:30 97.7 16 96 97.7 04/03/25 08:14 Room Air* 0 21 Intake/Output Intake and Output 04/03/25 07:00 Intake Total 400 ml Output Total 0 ml Balance 400 ml Intake Oral 400 ml Output Urine Total 0 ml Stool Total 0 ml Medications Current Medications Medications Dose Ordered Sig/Conner Route Start Time Stop Time Status Last Admin Dose Admin Ondansetron HCl 4 mg Q4HP PRN IV 03/29/25 17:30 Acetaminophen 650 mg Q6HP PRN PO 03/29/25 17:30 Atorvastatin Calcium 20 mg HS PO 03/29/25 22:00 04/02/25 21:39 20 MG Levothyroxine Sodium 75 mcg DAILY@0600 PO 03/30/25 06:00 04/03/25 05:33 75 MCG Lisinopril 40 mg DAILY PO 03/30/25 10:00 04/03/25 09:39 40 MG Nifedipine 30 mg DAILY PO 03/30/25 10:00 04/03/25 09:38 30 MG Pantoprazole Sodium 40 mg DAILY IV 03/30/25 10:00 04/03/25 09:44 40 MG Metoprolol Tartrate 12.5 mg BID PO 03/31/25 10:00 04/03/25 09:39 12.5 MG Sucralfate 1 gm BID@0600,2200 PO 04/03/25 06:00 04/03/25 05:34 1 GM Laboratory Results Laboratory Tests 04/02/25 05:43 Urinalysis Test 03/29/25 11:48 Urine Color Colorless (Yellow) Urine Clarity Clear (Clear) Urine pH 6.5 (5.0-9.0) Urine Specific [place] 1.009 (1.001-1.035) Urine Protein Negative (Negative) Urine Ketones Negative (Negative) Urine Blood Negative /uL (Negative) Urine Nitrite Negative (Negative) Urine Bilirubin Negative (Negative) Urine Urobilinogen Normal mg/dL (Negative) Urine Leukocyte Esterase Negative /uL (Negative) Urine RBC 1 /hpf (0 - 4) Urine Microscopic WBC /HPF (0-5) Urine Squamous Epithelial Cells None seen /hpf (<5) Urine Bacteria None seen /hpf (None Seen) Urine Glucose Normal mg/dL (Normal) Labs and/or images reviewed: Labs reviewed by me, Image(s) reviewed by me Assessment/Plan Assessment/Plan Generalized weakness Anemia hemoglobin 8.5 and stable at 9.0 stool occult blood negative Dr Yadav advised outpatient colonoscopy: Hypertension Hypercholesterolemia Hypothyroidism: TSH normal continue Synthroid GERD pantoprazole Carafate History of smoking counseling Exertional dyspnea rule out congestive heart failure: Echocardiogram 60 percent ejection fraction cardiology consult by Dr. Whaley appreciated Hypertrophic obstructive cardiomyopathy: Metoprolol, ilan negative, left heart catheterization negative Chest x-ray negative Flu test negative Meg test negative Patient Feels better and wants to go home Plan discussed with: Patient Date of Service: Apr 03, 2025 Billing Provider: VANESSA CAROLINA MD Common Visit Codes: [id number] INP/OBS CARE(HIGH) VANESSA CAROLINA MD Apr 03, 2025 12:07
[2025-04-03] MEDS ORDERED: METO25TA5 PO (12:08)
--- NOTE | 2025-04-03 12:13 | DVHDS2 ---
Discharge Summary Date of Admission Mar 29, 2025 at 17:26 Date of Discharge: Apr 03, 2025 Admitting Diagnosis Generalized weakness Wounds: None Labs/Diagnostic Data: Laboratory Results Test 04/02/25 05:43 04/01/25 16:25 03/30/25 23:00 03/30/25 05:13 White Blood Count 5.4 10^3/uL (4.4-10.8) Red Blood Count 3.06 10^6/uL (4.0-5.20) Hemoglobin 9.2 g/dL (12.2-16.2) Hematocrit 27.2 % (36.0-46.0) Mean Corpuscular Volume 88.8 fL (80.0-100.0) Mean Corpuscular Hemoglobin 30.0 pg (28.0-32.0) Mean Corpuscular Hemoglobin Concent 33.7 g/dL (32.0-36.0) Red Cell Distribution Width 14.8 % (11.8-14.3) Platelet Count 321 10^3/uL (140-450) Mean Platelet Volume 7.6 fL (6.9-10.8) Neutrophils (%) (Auto) 63.2 % (37.0-80.0) Lymphocytes (%) (Auto) 21.8 % (10.0-50.0) Monocytes (%) (Auto) 10.6 % (0.0-12.0) Eosinophils (%) (Auto) 3.2 % (0.0-7.0) Basophils (%) (Auto) 1.2 % (0.0-2.0) Neutrophils # (Auto) 3.4 10 ^3/uL (1.6-8.6) Lymphocytes # (Auto) 1.2 10 ^3/uL (0.4-5.4) Monocytes # (Auto) 0.6 10 ^3/uL (0-1.3) Eosinophils # (Auto) 0.2 10 ^3/uL (0-0.8) Basophils # (Auto) 0.1 10 ^3/uL (0-0.2) Nucleated Red Blood Cells 0.0 % Prothrombin Time 10.8 sec (9.3-11.8) Prothrombin Time INR 1.02 (0.9-1.15) Activated Partial Thromboplast Time 21.9 SEC (24.5-34.5) Sodium Level 134 mmol/L (136-145) Potassium Level 4.3 mmol/L (3.5-5.1) Chloride Level 98 mmol/L (98-107) Carbon Dioxide Level 26 mmol/L (20-31) Anion Gap 10 (5-15) Blood Urea Nitrogen 16 mg/dL (9-23) Creatinine 0.92 mg/dL (0.550-1.02) Glomerular Filtration Rate Calc 62 mL/min (>90) BUN/Creatinine Ratio 17.4 (10.0-20.0) Serum Glucose 101 mg/dL (74-106) Calcium Level 9.9 mg/dL (8.7-10.4) Stool Occult Blood Negative (Negative) Stool Occult Blood Sample #3 (Negative) SARS-CoV-2 Antigen (Rapid) Negative (NEGATIVE) Total Bilirubin 0.3 mg/dL (0.2-1.0) Aspartate Amino Transferase (AST) 23 U/L (13-40) Alanine Aminotransferase (ALT) 25 U/L (7-40) Alkaline Phosphatase 44 U/L (46-116) B-Type Natriuretic Peptide 34.12 pg/mL (0-100) Total Protein 6.3 g/dL (5.7-8.2) Albumin 4.4 g/dL (3.2-4.8) Test 03/29/25 20:23 03/29/25 16:36 03/29/25 12:55 03/29/25 11:48 Influenza Type A Antigen Negative (Negative) Influenza Type B Antigen Negative (Negative) Troponin I High Sensitivity 11 ng/L (</=34) Reticulocyte Count (auto) 6.22 % (0.5-1.5) Lactic Acid Level 0.9 mmol/L (0.4-2.0) Iron Level 207 ug/dL (50-170) Total Iron Binding Capacity 361 ug/dL (250-425) Percent Iron Saturation 57.3 % (15-50) Ferritin 12.3 ng/mL (10-291) Vitamin B12 Level 270 pg/mL (211-911) Thyroid Stimulating Hormone (TSH) 1.19 uIU/mL (0.55-4.78) Urine Color Colorless (Yellow) Urine Clarity Clear (Clear) Urine pH 6.5 (5.0-9.0) Urine Specific [place] 1.009 (1.001-1.035) Urine Protein Negative (Negative) Urine Ketones Negative (Negative) Urine Blood Negative /uL (Negative) Urine Nitrite Negative (Negative) Urine Bilirubin Negative (Negative) Urine Urobilinogen Normal mg/dL (Negative) Urine Leukocyte Esterase Negative /uL (Negative) Urine RBC 1 /hpf (0 - 4) Urine Microscopic WBC /HPF (0-5) Urine Squamous Epithelial Cells None seen /hpf (<5) Urine Bacteria None seen /hpf (None Seen) Urine Glucose Normal mg/dL (Normal) POC Glucose 119 mg/dl (70-106) Other Laboratory Tests 04/02/25 05:43 Brief Hx & Hospital Course: CT 4-year-old female with a history of hypertension hypercholesterolemia hypothyroidism chronic current smoker for generalized weakness. Hemoglobin 8.5 and stable stool for occult blood negative GI consult by Dr. Yadav and Dr. Omalley placed on pantoprazole and Carafate. Possible congestive heart failure echo 60 percent ejection fraction ilan negative left heart catheterization by minute clerk Dr. Whaley negative metoprolol 12.5 mg p.o. b.i.d. flu test negative Meg test neg chest x-ray negative. Patient feels better and wants to go home discharged home. Prescription for pantoprazole Carafate metoprolol transmitted to pharmacy Consults/Reason for consult GI Dr. Edwige Omalley Cardiology Dr. Whaley Operations or Procedures ILAN Left heart catheterization Condition at Discharge: Fair Final Diagnosis/Problems List Generalized weakness Anemia hemoglobin 8.5 and stable at 9.0 stool occult blood negative Dr Yadav advised outpatient colonoscopy: Hypertension Hypercholesterolemia Hypothyroidism: TSH normal continue Synthroid GERD pantoprazole Carafate History of smoking counseling Exertional dyspnea rule out congestive heart failure: Echocardiogram 60 percent ejection fraction cardiology consult by Dr. Whaley appreciated Hypertrophic obstructive cardiomyopathy: Metoprolol, ilan negative, left heart catheterization negative Chest x-ray negative Flu test negative Meg test negative Discharge Disposition: Home Discharge Instruct/Medications Diet: Cardiac 2g Na,low cholest Activity: Light activity Follow Up/Referral: Resume all previous home medications Follow up with the primary Dr cardiology Dr. Whaley and GI Dr. Edwige Omalley Medications: Pantoprazole Carafate Metoprolol Transmitted to [facility] Dr Scheduled Atorvastatin Calcium (Atorvastatin Calcium), 1 TAB PO DAILY, (Reported) Azithromycin (Zithromax Z-Ganesh), 250 MG PO DAILY Benzonatate (Benzonatate), 1-2 CAP PO Q4HR Ferrous Sulfate (Ferrous Sulfate), 1 TAB PO BID Levothyroxine Sodium (Levothyroxine Sodium), 1 TAB PO DAILY, (Reported) Lisinopril (Lisinopril), 1 TAB PO DAILY, (Reported) Metoprolol Tartrate (Metoprolol Tartrate), 0.5 TAB PO BID Pantoprazole Sodium Sesquihydr (Pantoprazole Sodium), 40 MG PO BID Sucralfate (Carafate), 1 GM PO BID Scheduled PRN Albuterol Sulfate (Albuterol Sulfate Hfa), 108 MCG IN TID PRN Miscellaneous Medications Atorvastatin Calcium (Atorvastatin Calcium), (Reported) Nifedipine (Nifedipine ER), (Reported) 39 (Time taken for discharge summary 39 minutes) Discharge Statement: "Patient was advised to return to the ER or call 911 if any headaches, dizziness, shortness of breath, chest pain, abdominal pain, bleeding, fevers, or worsening of medical condition. Patient was counseled about treatment plan, medications, possible side effects, patientverbalized understanding. All questions were answered to the best of my ability. This discharge took greater then 30 minutes in planning, reviewing documentation, counseling the patient, and discussing with other team members." ASSESSMENT ASSESSMENT Hospital Course Improved Assessment Generalized weakness Anemia hemoglobin 8.5 and stable at 9.0 stool occult blood negative Dr Yadav advised outpatient colonoscopy: Hypertension Hypercholesterolemia Hypothyroidism: TSH normal continue Synthroid GERD pantoprazole Carafate History of smoking counseling Exertional dyspnea rule out congestive heart failure: Echocardiogram 60 percent ejection fraction cardiology consult by Dr. Whaley appreciated Hypertrophic obstructive cardiomyopathy: Metoprolol, ilan negative, left heart catheterization negative Chest x-ray negative Flu test negative Meg test negative Date of Service: Apr 03, 2025 Billing Provider: VANESSA CAROLINA MD Common Visit Codes: [id number] DISCH DAY >30min VANESSA CAROLINA MD Apr 03, 2025 12:13
[2025-04-03 12:31] VITALS: BP 125/58; PULSE 83; RESP 16; TEMP 97.6; O2SAT 96
== END 2025-04-03 12:55 | disposition home or self-care (01) | DRG 287 ==
LOC: ER 11:37 → OVERFLOW 17:26 → WEST WING 22:17 → TELE-WESTW 03-31 10:24
PROVIDERS: ADMIT Family Medicine; ATTEND Family Medicine
PROC: B24BZZ4 Ultrasonography of Heart with Aorta, Transesophageal (ICD-10-PCS; principal; 2025-04-02)
PROC: 4A023N7 Measurement of Cardiac Sampling and Pressure, Left Heart, Percutaneous Approach (ICD-10-PCS; 2025-04-02)
PROC: B211YZZ Fluoroscopy of Multiple Coronary Arteries using Other Contrast (ICD-10-PCS; 2025-04-02)
DX: I25.10 Atherosclerotic heart disease of native coronary artery without angina pectoris (principal); E87.1 Hypo-osmolality and hyponatremia; D64.9 Anemia, unspecified; I42.1 Obstructive hypertrophic cardiomyopathy; K21.9 Gastro-esophageal reflux disease without esophagitis; E03.9 Hypothyroidism, unspecified; E78.00 Pure hypercholesterolemia, unspecified; I11.0 Hypertensive heart disease with heart failure; I50.9 Heart failure, unspecified; I35.0 Nonrheumatic aortic (valve) stenosis; I35.1 Nonrheumatic aortic (valve) insufficiency; Z90.710 Acquired absence of both cervix and uterus; Z82.49 Family history of ischemic heart disease and other diseases of the circulatory system; Z82.0 Family history of epilepsy and other diseases of the nervous system; Z88.0 Allergy status to penicillin; Z79.2 Long term (current) use of antibiotics; Z79.899 Other long term (current) drug therapy; Z87.891 Personal history of nicotine dependence; Z86.0100 Personal history of colon polyps, unspecified
CPT/HCPCS: 36415; 71045; 74177; 80048; 80053; 81001; 82270; 82306; 82607; 82728; 82962; 83540; 83550; 83605; 83880; 84443; 84484; 85014; 85018; 85025; 85045; 85610; 85730; 86850; 86900; 86901; 87426; 87804; 93005; 93306; 93312; 93458; 96360; 99152; 99291; G0378; J2250; J2470

== ENCOUNTER 2025-04-16 08:31 | Outpatient (CLI) | payer OTHER ==
[~2025-04-16 08:31] MED LIST changes: +ATOR20TA50; +METO25TA5 PO; +NIFE1TAB36; +PANT40T PO; +SUCR1TAB31 PO
[2025-04-16 10:29] LABS: Hemoglobin 7.3 g/dL (12.2-16.2); Nucleated Red Blood Cells % 0.0 %
[2025-04-16 10:32] LABS: Hematocrit 22.0 % (36.0-46.0); Mean Corpuscular Hemoglobin 27.4 pg (28.0-32.0); Mean Corpuscular Volume 82.0 fL (80.0-100.0)
[2025-04-17 15:07] LABS: Anti-Nuclear Antibody Direct Negative (Negative); Anti-dsDNA Antibody 1 IU/mL (0-9); Antiscleroderma-70 Antibody <0.2 AI (0.0-0.9); Sjogren's Anti-SS-A Antibody 0.3 AI (0.0-0.9); Sjogren's Anti-SS-B Antibody <0.2 AI (0.0-0.9)
[2025-04-17] MEDS ORDERED: CHLO25TA2 PO (23:21)
== END 2025-04-16 17:00 | disposition home or self-care (01) ==
LOC: LAB 08:31
PROVIDERS: ATTEND Nurse Practitioner Family
DX: I42.0 Dilated cardiomyopathy (principal); M25.50 Pain in unspecified joint; R53.83 Other fatigue
CPT/HCPCS: 36415; 82550; 83615; 85025; 85652; 86160; 86225; 86235; 86376; 86431; 86880

== ENCOUNTER 2025-04-17 22:12 | Inpatient (IN) | payer OTHER ==
[~2025-04-17] VITALS: Ht 162.6 cm; Wt 82.2 kg
--- NOTE | 2025-04-17 22:39 | ED.PDOC ---
History of Present Illness HPI Comments 84 year old female presents to the ED via EMS with a chief complaint of generalized weakness onset 1 week. Patient states she has been experiencing generalized weakness for the past week, noticed weakness worsened today. Patient got up to use restroom, noticed she began experiencing shortness of breath as we ll as fatigue. Patient was seen in this ED on 03/29/25 for similar symptoms, was admitted. Patient states she was told recently she had elevated iron levels. All VSS, blood glucose 106. PMHx anemia, HLD, HTN, GERD, Thyroid disease. Denies headache, nausea, vomiting, diarrhea, chest pain, cough, cold, congestion, fevers. No other associated symptoms, modifiers, recent injuries or sick contacts present at this time. Chief Complaint: General Weakness Time Seen by MD: 22:25 Primary Care Provider: LEIS Reviewed Notes: Medications, Allergies Allergies: Coded Allergies: Penicillins (Verified Allergy, Unknown, 03/29/25) Home Meds Active Scripts Metoprolol Tartrate (Metoprolol Tartrate) 25 Mg Tab, 0.5 TAB PO BID, #60 TAB 1 Refill Prov:VANESSA CAROLINA MD 04/03/25 Sucralfate (CARAFATE) 1 Gm Tab, 1 GM PO BID, #120 TAB Prov:VANESSA CAROLINA MD 04/03/25 Pantoprazole Sodium Sesquihydr (Pantoprazole Sodium) 40 Mg Tab, 40 MG PO BID, #60 TAB Prov:VANESSA CAROLINA MD 04/03/25 Benzonatate (Benzonatate) 100 Mg Cap, 1-2 CAP PO Q4HR, #60 CAP Prov:BRANDY BATISTA 02/01/25 Azithromycin (Zithromax Z-Ganesh) 250 Mg Tab, 250 MG PO DAILY for 5 Days, #5 TAB Prov:BRANDY BATISTA 02/01/25 Albuterol Sulfate (Albuterol Sulfate Hfa) 108 Mcg/Act Aer, 108 MCG IN TID PRN, #1 AER Prov:BRANDY BATISTAP 02/01/25 Ferrous Sulfate (FERROUS SULFATE) 325 Mg Tb, 1 TAB PO BID for 60 Days, #120 TAB 3 Refills Prov:ALICJA JAMES ACCOUNT SERVICES SPECIALIST 11/18/23 Reported Medications Chlorthalidone (Chlorthalidone) 25 Mg Tab, 12.5 MG PO DAILY@BREAKFAST, TAB 04/17/25 Nifedipine (Nifedipine ER) 30 Mg Tab 03/29/25 Atorvastatin Calcium (ATORVASTATIN CALCIUM) 20 Mg Tab 03/29/25 Lisinopril (Lisinopril) 40 Mg Tab, 1 TAB PO DAILY 11/17/23 Atorvastatin Calcium (ATORVASTATIN CALCIUM) 20 Mg Tab, 1 TAB PO DAILY 11/17/23 Levothyroxine Sodium (Levothyroxine Sodium) 75 Mcg Tab, 1 TAB PO DAILY 11/17/23 Information Source: Patient, Emergency Med Personnel Mode of Arrival: EMS Severity: Moderate Timing: Weeks Duration: Since onset Prehospital treatment: None Past Medical History PAST MEDICAL HISTORY: Anemia, GERD, High Lipids, HTN, Thyroid Surgical History: , Hysterectomy LOG BRANDER History: No Pertinent LOG BRANDER History Family History Family History: Reviewed,noncontributory to illness Social History Smoker: Non-Smoker Alcohol: Denies ETOH Use Drugs: Denies Drug Use Lives In: Home Constitutional: reports: fatigue, weakness; denies: chills, diaphoresis, fever, malaise, sweats, others EENTM: denies: blurred vision, double vision, ear bleeding, ear discharge, ear drainage, ear pain, ear ringing, eye pain, eye redness, hearing loss, mouth pain, mouth swelling, nasal discharge, nose bleeding, nose congestion, nose pain, photophobia, tearing, throat pain, throat swelling, voice changes, others Respiratory: reports: SOB with excertion; denies: cough, hemoptysis, orthopnea, SOB at rest, shortness of breath, stridor, wheezing, others Cardiovascular: denies: chest pain, dizzy spells, diaphoresis, Dyspnea on exertion, edema, irregular heart beat, left arm pain, lightheadedness, palpitations, PND, syncope, others Gastrointestinal: denies: abdomen distended, abdominal pain, blood streaked bowels, constipated, diarrhea, dysphagia, difficulty swallowing, hematemesis, melena, nausea, poor appetite, poor fluid intake, rectal bleeding, rectal pain, vomiting, others Genitourinary: denies: abnormal vagina bleeding, burning, dyspareunia, dysuria, flank pain, frequency, hematuria, incontinence, pain, , vagina discharge, urgency, others Neurological: reports: weakness; denies: dizziness, fainting, headache, left sided numbness, left sided weakness, numbness, paresthesia, pre-existing deficit, right sided numbness, right sided weakness, seizure, speech problems, tingling, tremors, others Musculoskeletal: denies: back pain, gout, joint pain, joint swelling, muscle pain, muscle stiffness, neck pain, others Integumetry: denies: bruises, change in color, change in hair/nails, dryness, laceration, lesions, lumps, rash, wounds, others Allergic/Immunocompromised: denies: Difficulty Healing, Frequent Infections, Hives, Itching, others Hematologic/Lymphatic: denies: anemia, blood clots, easy bleeding, easy bru ising, swollen glands, others Endocrine: denies: excessive hunger, excessive sweating, excessive thirst, e xcessive urination, flushing, intolerance to cold, intolerance to heat, unexplained weight gain, unexplained weight loss, others Psychiatric: denies: anxiety, bipolar disorder, depression, hopeless, panic disorder, schizophrenia, sleepless, suicidal, others All Other Systems: Reviewed and Negative Physical Exam General Appearance: Normal HEENT: Normal ENT Inspection, Pharynx Normal, TMs Normal Neck: Full Range of Motion, Non-Tender, Normal, Normal Inspection Respiratory: Chest Non-Tender, Lungs Clear, No Accessory Muscle Use, No Respiratory Distress, Normal Breath Sounds Cardiovascular: No Edema, No JVD, No Murmur, No Gallop, Normal Peripheral Pulses, Regular Rate/Rhythm Breast Exam: Deferred Gastrointestinal: No Organomegaly, Non Tender, No Pulsatile Mass, Normal Bowel Sounds, Soft Genitalia: Deferred Pelvic: Deferred Rectal: Deferred Extremities: No calf tenderness, Normal capillary refill, Normal inspection, Normal range of motion, Non-tender, No pedal edema Musculoskeletal : Apperance: Normal Neurologic: Alert, manager implementation II-XII nml as Tested, No Motor Deficits, Normal Affect, Normal Mood, No Sensory Deficits Cerebellar Function: Normal Reflexes: Normal Skin: Dry, Normal Color, Warm Lymphatic: No Adenopathy Was a procedure done? Was a procedure done?: No Differential Dx Considerations may include: ACS, CVA, viral syndrome, electrolyte abnormality, infectious etiology X-Ray, Labs, Meds, VS Vital Signs Date Time Temp Pulse Resp B/P (MAP) Pulse Ox O2 Delivery O2 Flow Rate FiO2 04/17/25 22:43 87 15 97 Room Air* 0 21 04/17/25 22:37 98.0 88 16 116/44 (68) 98 98.0 04/17/25 22:21 85 04/17/25 22:13 98.5 86 18 138/74 (95) 98 98.5 Lab Test 04/17/25 22:43 04/17/25 22:16 Range/Units White Blood Count 8.3 4.4-10.8 10^3/uL Red Blood Count 2.63 L 4.0-5.20 10^6/uL Hemoglobin 7.1 L 12.2-16.2 g/dL Hematocrit 21.2 L 36.0-46.0 % Mean Corpuscular Volume 80.6 80.0-100.0 fL Mean Corpuscular Hemoglobin 27.2 L 28.0-32.0 pg Mean Corpuscular Hemoglobin Concent 33.8 32.0-36.0 g/dL Red Cell Distribution Width 19.0 H 11.8-14.3 % Platelet Count 369 140-450 10^3/uL Mean Platelet Volume 6.9 6.9-10.8 fL Neutrophils (%) (Auto) 65.9 37.0-80.0 % Lymphocytes (%) (Auto) 19.4 10.0-50.0 % Monocytes (%) (Auto) 10.6 0.0-12.0 % Eosinophils (%) (Auto) 2.9 0.0-7.0 % Basophils (%) (Auto) 1.2 0.0-2.0 % Neutrophils # (Auto) 5.5 1.6-8.6 10 ^3/uL Lymphocytes # (Auto) 1.6 0.4-5.4 10 ^3/uL Monocytes # (Auto) 0.9 0-1.3 10 ^3/uL Eosinophils # (Auto) 0.2 0-0.8 10 ^3/uL Basophils # (Auto) 0.1 0-0.2 10 ^3/uL Nucleated Red Blood Cells 0.0 % Sodium Level Pending Potassium Level Pending Chloride Level Pending Carbon Dioxide Level Pending Anion Gap Pending Blood Urea Nitrogen Pending Creatinine Pending Glomerular Filtration Rate Calc Pending BUN/Creatinine Ratio Pending Serum Glucose Pending Calcium Level Pending Troponin I High Sensitivity Pending POC Glucose 131 H 70-106 mg/dl [facility] [id number] [facility] [id number] Ph: [phone] DIAGNOSTIC IMAGING Diagnostic Imaging Report : [id number] Signed PATIENT: JUSTIN WILLIAMSONCCT: [id number] UNIT: [id number] : 1940 LOC: ER ROOM / BED: / AGE / SEX: 84 / F ADM STATUS: REG ER SERVICE 33 ORDERING PHYSICIAN: LINDA POPE MD PROCEDURE(s): CXRP - CHEST PORTABLE REASON: weakness ORDER NUMBER(s): [id number], ACCESSION NUMBER(s): [id number] CHEST RADIOGRAPH Indication: weakness Technique: Single frontal view of the chest was obtained COMPARISON: XY CHEST PORTABLE on DOS: 04/02/25, XY CHEST PORTABLE on DOS: 03/29/25, XY CHEST XRAY 1 VIEW on DOS: 02/01/25, XY CHEST PORTABLE on DOS: 05/27/24, XY CHEST PORTABLE on DOS: 11/17/23 FINDINGS: Lines and Tubes: None Lungs: Clear Pleura: No effusion. No pneumothorax. Cardiomediastinal contours: Unremarkable Bones: Unremarkable IMPRESSION: 1. No acute disease. ATED BY: RACHID CASTANEDA MD DICTATED DATE/TIME: 04/17/252256 SIGNED BY: RACHID CASTANEDA MD SIGNED DATE/TIME: 04/17/252256 CC: Time of 1ST Reevaluation: 22:55 Reevaluation 1ST: Unchanged Patient Education/Counseling: Diagnosis, Treatment, Prognosis Family Education/Counseling: No Family Present Additional Information Previous visits reviewed: 03/29/2025, 04/03/25 The following tests were ordered, and results were reviewed by me: CBC, BMP, TROP -x3, UA, XY CHEST, EKG Additional Information was gathered from interviewing the following independent historians: EMS I reviewed and agreed with the following test results read by other providers: XY CHEST I discussed treatment and results with medical personnel and: patient Comprehensive systems review obtained and negative except for what is stated in the HPI. SEPSIS Sepsis Screen Date sepsis recognized/suspect: Apr 17, 2025 Time Sepsis recognized/suspect: 2213 Recent Procedure: No On Antibiotic Therapy: No Respiratory Rate >20: No Heart Rate >90: No Temp<36 C (96.8 F) or >38.3 C: No SBP <90 or MAP <65 mmHG: No New Acute Mental Status Change: No Is the patient on CPAP, BIPAP,: No Physician Orders Basic Metabolic Panel (04/17/25 22:34) Troponin-I Hs (04/17/25 22:34) Urinalysis (04/17/25 22:34) Chest Portable (04/17/25 22:34) Troponin-I Hs (04/17/25 23:34) Troponin-I Hs (04/18/25 01:34) Vital Signs Date Time Temp Pulse Resp B/P (MAP) Pulse Ox O2 Delivery O2 Flow Rate FiO2 04/17/25 22:43 87 15 97 Room Air* 0 21 04/17/25 22:37 98.0 88 16 116/44 (68) 98 98.0 04/17/25 22:21 85 04/17/25 22:13 98.5 86 18 138/74 (95) 98 98.5 Laboratory Tests Test 04/17/25 22:43 White Blood Count 8.3 10^3/uL (4.4-10.8) Departure 1 Departure Time of Disposition: 05:56 (Patient with symptomatic anemia causing generalized weakness. With the patient for further workup and expert consultation) Impression: Primary Impression: Symptomatic anemia Additional Impression: Generalized weakness Disposition: ADMITTED INPATIENT Admit to: Med Surg Condition: Serious Critical Care Note Critical Care Time?: No Stability Stability form required: No I personally scribed for LINDA POPE MD ([email or web address]) on 04/17/25 at 22:39. E lectronically submitted by Kristen Leary ([email or web address]). I personally scribed for LINDA POPE MD (ISRA) on 04/17/25 at 22:53. Elect ronically submitted by Kristen Leary ([email or web address]). I personally scribed for LINDA POPE MD (ISRA) on 04/17/25 at 23:04. Electronically submitted by Kristen Leary ([email or web address]). LINDA POPE MD Apr 17, 2025 22:39
[2025-04-17 22:43] VITALS: PULSE 87; RESP 15; O2SAT 97
--- NOTE | 2025-04-17 22:50 | ECG ---
[facility] Test Date: 2025-04-17 Test Time: 22:21:32 Pat Name: JUSTIN WILLIAMSON Department: ED Room: 0286 Gender: F Marketing Regional Consultant: MYRTLE : 1940 Requested By: LINDA POPE Order Number: [id number] Reading MD: Patrick Rodriguez Measurements Intervals [place] Rate: 85 P: 47 NE: 172 QRS: 4 QRSD: 100 T: 49 QT: 389 QTc: 463 Interpretive Statements Sinus rhythm Abnormal inferior Q waves Repol abnrm suggests ischemia, anterolateral Electronically Signed On 04-18-2025 17:02:43 PDT by Patrick Rodriguez Please click the below link to view image of tracing.
[2025-04-17 22:55] LABS: Nucleated Red Blood Cells % 0.0 %
[2025-04-17 22:56] LABS: Hematocrit 21.2 % (36.0-46.0); Hemoglobin 7.1 g/dL (12.2-16.2); Mean Corpuscular Hemoglobin 27.2 pg (28.0-32.0); Mean Corpuscular Volume 80.6 fL (80.0-100.0)
--- NOTE | 2025-04-17 23:00 | DVH ---
CHEST RADIOGRAPH Indication: weakness Technique: Single frontal view of the chest was obtained COMPARISON: XY CHEST PORTABLE on DOS: 04/02/25, XY CHEST PORTABLE on DOS: 03/29/25, XY CHEST XRAY 1 VIEW on DOS: 02/01/25, XY CHEST PORTABLE on DOS: 05/27/24, XY CHEST PORTABLE on DOS: 11/17/23 FINDINGS: Lines and Tubes: None Lungs: Clear Pleura: No effusion. No pneumothorax. Cardiomediastinal contours: Unremarkable Bones: Unremarkable IMPRESSION: 1. No acute disease.
[2025-04-17 23:04] LABS: Potassium 3.7 mmol/L (3.5-5.1)
[2025-04-17 23:05] LABS: Anion Gap 11 (5-15); Calcium 9.5 mg/dL (8.7-10.4); Carbon Dioxide 24 mmol/L (20-31)
[2025-04-17 23:10] LABS: BUN/Creatinine Ratio 18.8 (10.0-20.0); Blood Urea Nitrogen 19 mg/dL (9-23)
[2025-04-17 23:16] LABS: Chloride 97 mmol/L (98-107); Glucose 119 mg/dL (74-106); Sodium 132 mmol/L (136-145)
[2025-04-17] MEDS ORDERED: CHLO25TA2 PO (23:21)
[2025-04-17 23:26] LABS: Urine Protein, UAD Negative (Negative)
[2025-04-18] VITALS (9 sets, daily range): BP systolic 110–144; BP diastolic 47–66; PULSE 72–82; RESP 14–20; TEMP 97.4–98.7; O2SAT 95–99
[2025-04-18] MEDS ORDERED: ONDANSETRON HCL 4 MG/2 ML VIAL IV PRN (04:45)
[2025-04-18] MEDS ORDERED: ACETAMINOPHEN 325 MG TAB PO PRN (04:45)
--- NOTE | 2025-04-18 04:51 | DVHHP2 ---
History of Present Illness Reason for Visit: Generalized weakness History of Present Illness 84-year-old female presents for evaluation of generalized weakness. Patient reports a one-week history of fatigue with occasional shortness for breath. She reports a history of anemia and last blood transfusion being on October of this year. Denies hematuria or melena. No cardiac complaints. Past Medical History Dyslipidemia, hypertension, thyroid, crit, anemia Past Surgical History Hysterectomy, Family History Noncontributory Smoke: No ALCOHOL: none Drugs: None Lives: with Family Review of Systems Review of Systems Review of systems are currently negative otherwise addressed in HPI. Allergies: Coded Allergies: Penicillins (Verified Allergy, Unknown, 03/29/25) Medications Current Medications Medications Dose Ordered Sig/Conner Route Start Time Stop Time Status Last Admin Dose Admin Levothyroxine Sodium 112 mcg QAM@0600 PO 04/18/25 06:00 UNV Metoprolol Tartrate 12.5 mg BID PO 04/18/25 10:00 UNV Atorvastatin Calcium 20 mg HS PO 04/18/25 22:00 UNV Ferrous Sulfate 325 mg BIDWM PO 04/18/25 08:00 UNV Lisinopril 40 mg DAILY PO 04/18/25 10:00 UNV Ondansetron HCl 4 mg Q4HP PRN IV 04/18/25 04:45 UNV Acetaminophen 650 mg Q6HP PRN PO 04/18/25 04:45 UNV Exam Vital Signs Vital Signs Date Time Temp Pulse Resp B/P (MAP) Pulse Ox O2 Delivery O2 Flow Rate FiO2 04/18/25 04:00 80 16 112/52 (72) 95 04/17/25 22:43 Room Air* 0 21 04/17/25 22:37 98.0 98.0 Exam Gen: 84-year-old female in mild distress Skin: Warm, dry, normal color and texture, no rash. HEENT: Normocephalic atraumatic, mucous membranes moist and pink. Neck: Cervical and supraclavicular nodes normal without enlargement, trachea is midline, thyroid gland is normal without masses. Pulmonary: Clear to auscultation and percussion bilaterally. Cardiac: Regular rate and rhythm. No murmur Abdomen: Soft, nontender, nondistended, bowel sounds present all 4 quadrants, no guarding, no rigidity, no organomegaly. Extremities: No cyanosis, clubbing, no edema Neuro: Cranial nerves II through XII grossly intact, normal affect and speech, no focal motor deficits. Labs/Xrays ORDERING PHYSICIAN: LINDA POPE MD PROCEDURE(s): CXRP - CHEST PORTABLE REASON: weakness ORDER NUMBER(s): [id number], ACCESSION NUMBER(s): [id number] CHEST RADIOGRAPH Indication: weakness Technique: Single frontal view of the chest was obtained COMPARISON: XY CHEST PORTABLE on DOS: 04/02/25, XY CHEST PORTABLE on DOS: 03/29/25, XY CHEST XRAY 1 VIEW on DOS: 02/01/25, XY CHEST PORTABLE on DOS: 05/27/24, XY CHEST PORTABLE on DOS: 11/17/23 FINDINGS: Lines and Tubes: None Lungs: Clear Pleura: No effusion. No pneumothorax. Cardiomediastinal contours: Unremarkable Bones: Unremarkable IMPRESSION: 1. No acute disease. Labs Test 04/17/25 23:35 04/17/25 22:56 04/17/25 22:43 04/17/25 22:16 Range/Units Troponin I High Sensitivity < 3 L </=34 ng/L Urine Color Colorless Yellow Urine Clarity Clear Clear Urine pH 5.5 5.0-9.0 Urine Specific [place] 1.007 1.001-1.035 Urine Protein Negative Negative Urine Ketones Negative Negative Urine Blood Negative Negative /uL Urine Nitrite Negative Negative Urine Bilirubin Negative Negative Urine Urobilinogen Normal Negative mg/dL Urine Leukocyte Esterase 1+ Negative /uL Urine RBC None seen 0 - 4 /hpf Urine Microscopic WBC 4 0-5 /HPF Urine Squamous Epithelial Cells None seen <5 /hpf Urine Bacteria None seen None Seen /hpf Urine Glucose Normal Normal mg/dL White Blood Count 8.3 4.4-10.8 10^3/uL Red Blood Count 2.63 L 4.0-5.20 10^6/uL Hemoglobin 7.1 L 12.2-16.2 g/dL Hematocrit 21.2 L 36.0-46.0 % Mean Corpuscular Volume 80.6 80.0-100.0 fL Mean Corpuscular Hemoglobin 27.2 L 28.0-32.0 pg Mean Corpuscular Hemoglobin Concent 33.8 32.0-36.0 g/dL Red Cell Distribution Width 19.0 H 11.8-14.3 % Platelet Count 369 140-450 10^3/uL Mean Platelet Volume 6.9 6.9-10.8 fL Neutrophils (%) (Auto) 65.9 37.0-80.0 % Lymphocytes (%) (Auto) 19.4 10.0-50.0 % Monocytes (%) (Auto) 10.6 0.0-12.0 % Eosinophils (%) (Auto) 2.9 0.0-7.0 % Basophils (%) (Auto) 1.2 0.0-2.0 % Neutrophils # (Auto) 5.5 1.6-8.6 10 ^3/uL Lymphocytes # (Auto) 1.6 0.4-5.4 10 ^3/uL Monocytes # (Auto) 0.9 0-1.3 10 ^3/uL Eosinophils # (Auto) 0.2 0-0.8 10 ^3/uL Basophils # (Auto) 0.1 0-0.2 10 ^3/uL Nucleated Red Blood Cells 0.0 % Sodium Level 132 L 136-145 mmol/L Potassium Level 3.7 3.5-5.1 mmol/L Chloride Level 97 L 98-107 mmol/L Carbon Dioxide Level 24 20-31 mmol/L Anion Gap 11 5-15 Blood Urea Nitrogen 19 9-23 mg/dL Creatinine 1.01 0.550-1.02 mg/dL Glomerular Filtration Rate Calc 56 >90 mL/min BUN/Creatinine Ratio 18.8 10.0-20.0 Serum Glucose 119 H 74-106 mg/dL Calcium Level 9.5 8.7-10.4 mg/dL POC Glucose 131 H 70-106 mg/dl SEPSIS Sepsis Screen Date sepsis recognized/suspect: Apr 17, 2025 Time Sepsis recognized/suspect: 2242 Recent Procedure: No On Antibiotic Therapy: No Respiratory Rate >20: No Heart Rate >90: No Temp<36 C (96.8 F) or >38.3 C: No SBP <90 or MAP <65 mmHG: No New Acute Mental Status Change: No Is the patient on CPAP, BIPAP,: No Physician Orders Chest Portable (04/17/25 22:34) Levothyroxine Tablet (Synthroid Tablet) (04/18/25 06:00) Metoprolol Tartrate Tablet (Lopressor Ta (04/18/25 10:00) Atorvastatin (Lipitor) (04/18/25 22:00) Ferrous Sulfate Tablet (04/18/25 08:00) Lisinopril Tablet (Zestril Tablet) (04/18/25 10:00) Type And Screen (04/18/25 04:36) Stool Occult Blood (04/18/25 04:36) Iron Panel (04/18/25 04:36) Basic Metabolic Panel (04/19/25 04:00) Admit (04/18/25 04:36) Ondansetron Hcl (Zofran) (04/18/25 04:45) Complete Blood Count (04/19/25 04:00) Cardiac Diet-2gna,Lofat,Lochol (04/18/25 Breakfast) Condition: Stable (04/18/25 04:36) Acetaminophen Tablet (Tylenol Tablet) (04/18/25 04:45) Bedrest With Bathroom Privileg (04/18/25 04:36) Packedcell-Noactive Bleeding (04/18/25 04:36) Vital Signs Date Time Temp Pulse Resp B/P (MAP) Pulse Ox O2 Delivery O2 Flow Rate FiO2 04/18/25 04:00 80 16 112/52 (72) 95 04/18/25 02:00 77 18 128/41 (70) 96 04/18/25 00:00 76 19 122/46 (71) 95 04/18/25 00:00 84 04/17/25 22:43 87 15 97 Room Air* 0 21 04/17/25 22:37 98.0 88 16 116/44 (68) 98 98.0 04/17/25 22:21 85 04/17/25 22:13 98.5 86 18 138/74 (95) 98 98.5 Laboratory Tests Test 04/17/25 22:43 White Blood Count 8.3 10^3/uL (4.4-10.8) Assessment/Plan Assessment/Plan Assessment Symptomatic anemia Hypertension Thyroid Plan Admit the patient to [facility] to the hospitalist Transfuse 1 unit of packed red cells Iron panel pending Stool occult pending Resume home medications Continue treatment per orders Plan discussed with: Patient My Orders Orders - JUDY LOVETT Procedure Category Date Status Time Levothyroxine Tablet PHA 04/18/25 Logged (Synthroid Tablet) 06:00 Metoprolol Tartrate [facility] 04/18/25 Logged Tablet (Lopressor Ta 10:00 Atorvastatin (Lipitor) PHA 04/18/25 Logged 22:00 Ferrous Sulfate Tablet PH[facility] 04/18/25 Logged 08:00 Lisinopril Tablet [facility] 04/18/25 Logged (Zestril Tablet) 10:00 Type And Screen [facility] 04/18/25 Logged 04:36 Stool Occult Blood LAB 04/18/25 Logged 04:36 Iron Panel LAB 04/18/25 Logged 04:36 Basic Metabolic Panel LAB 04/19/25 Verified 04:00 Admit ADMIT 04/18/25 Transmitted 04:36 Ondansetron Hcl PHA 04/18/25 Logged (Zofran) 04:45 Complete Blood Count LAB 04/19/25 Verified 04:00 Cardiac DIET 04/18/25 Transmitted Diet-2gna,Lofat,Lochol Breakfast Condition: Stable [facility] 04/18/25 In Process 04:36 Acetaminophen Tablet [facility] 04/18/25 Logged (Tylenol Tablet) 04:45 Bedrest With Bathroom [facility] 04/18/25 In Process Privileg 04:36 Packedcell-Noactive K 04/18/25 Logged Bleeding 04:36 Date of Service: Apr 18, 2025 Billing Provider: JUDY LOVETT Common Visit Codes: [id number] INP/OBS CARE (MOD) JUDY LOVETT Apr 18, 2025 04:51
[2025-04-18 05:31] LABS: Iron 13.0 ug/dL (50-170); Total Iron Binding Capacity 411.0 ug/dL (250-425)
[2025-04-18] MEDS ORDERED: LEVOTHYROXINE SODIUM 112 MCG TAB PO SCH (06:00)
[2025-04-18] MEDS: FERROUS SULFATE 325mg EC TAB PO SCH (11:17)
[2025-04-18] MEDS: METOPROLOL TARTRATE 25 MG TAB PO SCH (11:18)
[2025-04-18] MEDS: LISINOPRIL 20 MG TAB PO SCH (11:19)
[2025-04-18] MEDS: ATORVASTATIN 20 MG TAB PO SCH (22:01)
[2025-04-19 01:00] VITALS: BP 109/56; PULSE 77; RESP 18; TEMP 97.5; O2SAT 95
[2025-04-19 05:00] VITALS: BP 108/50; PULSE 69; RESP 18; TEMP 98.1; O2SAT 94
[2025-04-19] MEDS: LEVOTHYROXINE SODIUM 112 MCG TAB PO SCH (05:59)
[2025-04-19 06:53] LABS: Potassium 3.9 mmol/L (3.5-5.1)
[2025-04-19 06:54] LABS: Anion Gap 9 (5-15); Calcium 10.2 mg/dL (8.7-10.4); Carbon Dioxide 27 mmol/L (20-31); Hematocrit 25.4 % (36.0-46.0); Hemoglobin 8.8 g/dL (12.2-16.2); Mean Corpuscular Hemoglobin 27.5 pg (28.0-32.0); Mean Corpuscular Volume 79.6 fL (80.0-100.0); Nucleated Red Blood Cells % 0.1 %
[2025-04-19 06:55] LABS: Chloride 97 mmol/L (98-107); Sodium 133 mmol/L (136-145)
[2025-04-19 06:59] LABS: BUN/Creatinine Ratio 15.1 (10.0-20.0); Blood Urea Nitrogen 13 mg/dL (9-23); Glucose 100 mg/dL (74-106)
[2025-04-19 08:56] VITALS: BP 112/55; PULSE 74; RESP 16; TEMP 97.3; O2SAT 96
[2025-04-19 13:00] VITALS: BP 121/70; PULSE 69; RESP 17; TEMP 97.5; O2SAT 95
--- NOTE | 2025-04-19 15:05 | DVHINCON2 ---
GI Consult Consult Note GI consult note Date of Consultation: 04/19/2025 Chief Complaint: Anemia Referring Physician: Dr. Barrera H&P: 84-year-old female admitted with generalized weakness. Patient is status post 1 unit PRBC transfused and feeling slightly better. Similar episode in October 2024, when patient was diagnosed with anemia and started on iron supplements. No abdominal pain. No nausea vomiting. Denies hematemesis. Admits to having history of GERD and treated with omeprazole. No EGD in past. No melena or red blood in stool. Last colonoscopy eight years ago unsure about results. Patient denies any blood thinners Past Medical History: Dyslipidemia, hypertension, thyroid, crit, anemia Past Surgical History: Hysterectomy, Social History: NO smoking, drinking ETOH and use of illegal drugs. Family History: Noncontributory Review of Systems: Constitutional: no fever, chill, weight loss HEENT: no eye pain, no hearing loss, no oral lesion, no scleral icterus Heart: no chest pain, no chest pressure Lung: no cough, no dyspnea with exertion Abdomen: see HPI Physical exam: General: NAD, AAOX3 Chest: lung parker clear to auscultation Heart: RRR, no murmur Abdomen: non-distended, no tenderness to palpation, +BS Labs: Labs Test 04/19/25 05:49 04/18/25 17:55 04/18/25 04:50 04/17/25 23:35 Range/Units White Blood Count 7.0 4.4-10.8 10^3/uL Red Blood Count 3.19 L 4.0-5.20 10^6/uL Hemoglobin 8.8 #L 12.2-16.2 g/dL Hematocrit 25.4 #L 36.0-46.0 % Mean Corpuscular Volume 79.6 L 80.0-100.0 fL Mean Corpuscular Hemoglobin 27.5 L 28.0-32.0 pg Mean Corpuscular Hemoglobin Concent 34.5 32.0-36.0 g/dL Red Cell Distribution Width 18.9 H 11.8-14.3 % Platelet Count 391 140-450 10^3/uL Mean Platelet Volume 7.2 6.9-10.8 fL Neutrophils (%) (Auto) 64.4 37.0-80.0 % Lymphocytes (%) (Auto) 19.0 10.0-50.0 % Monocytes (%) (Auto) 12.2 H 0.0-12.0 % Eosinophils (%) (Auto) 3.1 0.0-7.0 % Basophils (%) (Auto) 1.3 0.0-2.0 % Neutrophils # (Auto) 4.5 1.6-8.6 10 ^3/uL Lymphocytes # (Auto) 1.3 0.4-5.4 10 ^3/uL Monocytes # (Auto) 0.9 0-1.3 10 ^3/uL Eosinophils # (Auto) 0.2 0-0.8 10 ^3/uL Basophils # (Auto) 0.1 0-0.2 10 ^3/uL Nucleated Red Blood Cells 0.1 % Sodium Level 133 L 136-145 mmol/L Potassium Level 3.9 3.5-5.1 mmol/L Chloride Level 97 L 98-107 mmol/L Carbon Dioxide Level 27 20-31 mmol/L Anion Gap 9 5-15 Blood Urea Nitrogen 13 9-23 mg/dL Creatinine 0.86 0.550-1.02 mg/dL Glomerular Filtration Rate Calc 67 >90 mL/min BUN/Creatinine Ratio 15.1 10.0-20.0 Serum Glucose 100 74-106 mg/dL Calcium Level 10.2 8.7-10.4 mg/dL Stool Occult Blood Negative Negative Stool Occult Blood Sample #3 Negative Iron Level 13 L 50-170 ug/dL Total Iron Binding Capacity 411 250-425 ug/dL Percent Iron Saturation 3.2 L 15-50 % Troponin I High Sensitivity < 3 L </=34 ng/L Test 04/17/25 22:56 04/17/25 22:16 Range/Units Urine Color Colorless Yellow Urine Clarity Clear Clear Urine pH 5.5 5.0-9.0 Urine Specific [place] 1.007 1.001-1.035 Urine Protein Negative Negative Urine Ketones Negative Negative Urine Blood Negative Negative /uL Urine Nitrite Negative Negative Urine Bilirubin Negative Negative Urine Urobilinogen Normal Negative mg/dL Urine Leukocyte Esterase 1+ Negative /uL Urine RBC None seen 0 - 4 /hpf Urine Microscopic WBC 4 0-5 /HPF Urine Squamous Epithelial Cells None seen <5 /hpf Urine Bacteria None seen None Seen /hpf Urine Glucose Normal Normal mg/dL POC Glucose 131 H 70-106 mg/dl Imaging: CT abdomen pelvis 03/30/2025 IMPRESSION: Mild gastric wall thickening which can be seen in the in the setting of gastritis. Recommend clinical correlation. Assessment: Severe anemia History of GERD Possible gastritis Plan: Discussed with Dr. Omalley - Pt will be scheduled for an EGD tomorrow 04/20/2025. Pt was informed of the risks (bleeding, infection, perforation, reaction to sedation medications and cardiopulmonary arrest) and benefit and is agreeable to undergo the procedures. Protonix Monitor labs Transfuse if hemoglobin less than seven Discussed plan with patient family at bedside and RN Thank you for this consult Date of Service: Apr 19, 2025 Billing Provider: KESHA CAROLINA Common Visit Codes: CONSULT ONLY Consultation Codes: [id number] CONSULT <60MIN KESHA CAROLINA Apr 19, 2025 15:05
[2025-04-19 17:00] VITALS: BP 124/68; PULSE 74; RESP 18; TEMP 98.9; O2SAT 94
--- NOTE | 2025-04-19 19:45 | DVHPN2 ---
Subjective Seen in bed stool negative for occult blood Reviewed: H&P, Labs Changes from previous H/P or p: No Changes General: Per HPI Objective Vitals Vital Signs Date Time Temp Pulse Resp B/P (MAP) Pulse Ox O2 Delivery O2 Flow Rate FiO2 04/19/25 17:00 98.9 74 18 124/68 (86) 94 98.9 04/19/25 08:15 Room Air* 0 21 Intake/Output Intake and Output 04/19/25 07:00 Intake Total 1650 ml Output Total 0 ml Balance 1650 ml Intake Oral 1050 ml Tube Feeding 0 ml Blood Product 600 ml Other 0 ml Output Urine Total 0 ml Stool Total 0 ml Urine/Stool Mix 0 ml Gastric Drainage Total 0 ml Emesis 0 ml Chest Tube Drainage Total 0 ml Drainage Total 0 ml Blood Draw 0 ml Other 0 ml # Voids 5 # Bowel Movements 1 General Appearance: Alert, Oriented X3 HEENT: Atraumatic Lungs: Clear to auscultation Cardiovascular: Regular rate, Normal S1, Normal S2 Abdomen: Normal bowel sounds Medications Current Medications Medications Dose Ordered Sig/Conner Route Start Time Stop Time Status Last Admin Dose Admin Metoprolol Tartrate 12.5 mg BID PO 04/18/25 10:00 04/19/25 09:19 12.5 MG Atorvastatin Calcium 20 mg HS PO 04/18/25 22:00 04/18/25 22:01 20 MG Ferrous Sulfate 325 mg BIDWM PO 04/18/25 08:00 04/19/25 17:48 325 MG Lisinopril 40 mg DAILY PO 04/18/25 10:00 04/19/25 09:18 40 MG Ondansetron HCl 4 mg Q4HP PRN IV 04/18/25 04:45 Acetaminophen 650 mg Q6HP PRN PO 04/18/25 04:45 Levothyroxine Sodium 112 mcg QAM@0600 PO 04/19/25 07:00 04/19/25 05:59 112 MCG Laboratory Results Laboratory Tests 04/19/25 05:49 Chemistry Test 04/19/25 05:49 Calcium Level 10.2 mg/dL (8.7-10.4) Urinalysis Test 04/17/25 22:56 Urine Color Colorless (Yellow) Urine Clarity Clear (Clear) Urine pH 5.5 (5.0-9.0) Urine Specific [place] 1.007 (1.001-1.035) Urine Protein Negative (Negative) Urine Ketones Negative (Negative) Urine Blood Negative /uL (Negative) Urine Nitrite Negative (Negative) Urine Bilirubin Negative (Negative) Urine Urobilinogen Normal mg/dL (Negative) Urine Leukocyte Esterase 1+ /uL (Negative) Urine RBC None seen /hpf (0 - 4) Urine Microscopic WBC 4 /HPF (0-5) Urine Squamous Epithelial Cells None seen /hpf (<5) Urine Bacteria None seen /hpf (None Seen) Urine Glucose Normal mg/dL (Normal) Assessment/Plan Assessment/Plan Symptomatic anemia Hypertension Thyroid Acute blood loss anemia Acute GI bleed S/P 1 :U PRBC Continue PPI BID 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
[2025-04-19 21:00] VITALS: BP 107/52; PULSE 89; RESP 17; TEMP 97.6; O2SAT 94
[2025-04-20] VITALS (7 sets, daily range): BP systolic 98–126; BP diastolic 52–66; PULSE 71–76; RESP 17–20; TEMP 97.5–98; O2SAT 95–100
[2025-04-20 05:31] LABS: Hematocrit 27.9 % (36.0-46.0); Hemoglobin 9.4 g/dL (12.2-16.2); Mean Corpuscular Hemoglobin 26.9 pg (28.0-32.0); Mean Corpuscular Volume 80.0 fL (80.0-100.0); Nucleated Red Blood Cells % 0.1 %
[2025-04-20 05:50] LABS: INR 0.97 (0.9-1.15); Prothrombin Time 10.3 sec (9.3-11.8)
[2025-04-20] MEDS ORDERED: PROPOFOL 10 MG/ML 20 ML IV ONE (13:10)
[2025-04-20] MEDS ORDERED: LIDOCAINE 2% (LOCAL ANESTH.) PF 5ml SDV ONE (13:10)
--- NOTE | 2025-04-20 13:47 | DVHOP2 ---
Operative Report DATE OF OPERATION: 04/20/25 PROCEDURE: Upper Endoscopy with biopsy. PREOPERATIVE INDICATION: The patient is a 84 -year-old female undergoing endoscopy for and history of GERD POSTOPERATIVE DIAGNOSES: 1. 2 cm sliding-type hiatal hernia with slightly irregular squamocolumnar junction minimal grade A erosive esophagitis 2. Mild gastritis otherwise normal examination up to the 2nd and 3rd part of the duodenum with no active bleeding no fresh or old blood in the upper GI tract PROCEDURE PERFORMED BY: Anastasiya Omalely GI NURSE: Jose Ramon SCOPE: Olympus videoendoscope. ASA CLASS: 3. PREOPERATIVE MEDICATIONS: Mac sedation, Karel Bacon PROCEDURE IN DETAIL: After obtaining an informed consent, the patient was placed on left lateral decubitus position. The patient was then sedated with the above medications. A bite block was placed between his teeth. The endoscope was then passed through the oropharynx, into the esophagus, and through the stomach and pylorus up to the second and third part of the duodenum. The endoscope was t hen withdrawn. The 2nd and 3rd part of the duodenal and the duodenal bulb were normal. Duodenal biopsies were obtained The pre-pyloric area antrum and body of the stomach showed mild gastritis. Gastric biopsies were obtained. On retroflexion the fundus cardia and angularis were normal. The endoscope was then withdrawn into distal esophagus Patient had a 2 cm sliding-type hiatal hernia with irregular squamocolumnar junction minimal grade a erosive esophagitis GE junction biopsies were obtained. The remaining distal and proximal esophagus and oropharynx were unremarkable The patient tolerated the procedure well without difficulty. COMPLICATIONS : None SPECIMENS: Duodenal Biopsies Gastric biopsies GE junction biopsies DISPOSITION: Transfer back to the floor Stable PLAN: 1. Await for biopsy result 2. Will place pt on Protonix 40 mg p.o. daily 3. Resume GI soft diet advance as tolerated 4. Lifestyle modifications for GERD 5. Outpatient follow up with me in 4-6 weeks to discuss elective screening colonoscopy ANASTASIYA OMALLEY MD Apr 20, 2025 13:47
--- NOTE | 2025-04-20 18:46 | DVHDS2 ---
Discharge Summary Date of Admission Apr 18, 2025 at 04:36 Date of Discharge: Apr 20, 2025 Labs/Diagnostic Data: Laboratory Results Test 04/20/25 05:05 04/19/25 05:49 04/18/25 17:55 04/18/25 04:50 White Blood Count 8.4 10^3/uL (4.4-10.8) Red Blood Count 3.48 10^6/uL (4.0-5.20) Hemoglobin 9.4 g/dL (12.2-16.2) Hematocrit 27.9 % (36.0-46.0) Mean Corpuscular Volume 80.0 fL (80.0-100.0) Mean Corpuscular Hemoglobin 26.9 pg (28.0-32.0) Mean Corpuscular Hemoglobin Concent 33.6 g/dL (32.0-36.0) Red Cell Distribution Width 19.0 % (11.8-14.3) Platelet Count 431 10^3/uL (140-450) Mean Platelet Volume 7.1 fL (6.9-10.8) Neutrophils (%) (Auto) 63.6 % (37.0-80.0) Lymphocytes (%) (Auto) 20.2 % (10.0-50.0) Monocytes (%) (Auto) 11.3 % (0.0-12.0) Eosinophils (%) (Auto) 3.3 % (0.0-7.0) Basophils (%) (Auto) 1.6 % (0.0-2.0) Neutrophils # (Auto) 5.3 10 ^3/uL (1.6-8.6) Lymphocytes # (Auto) 1.7 10 ^3/uL (0.4-5.4) Monocytes # (Auto) 0.9 10 ^3/uL (0-1.3) Eosinophils # (Auto) 0.3 10 ^3/uL (0-0.8) Basophils # (Auto) 0.1 10 ^3/uL (0-0.2) Nucleated Red Blood Cells 0.1 % Prothrombin Time 10.3 sec (9.3-11.8) Prothrombin Time INR 0.97 (0.9-1.15) Sodium Level 133 mmol/L (136-145) Potassium Level 3.9 mmol/L (3.5-5.1) Chloride Level 97 mmol/L (98-107) Carbon Dioxide Level 27 mmol/L (20-31) Anion Gap 9 (5-15) Blood Urea Nitrogen 13 mg/dL (9-23) Creatinine 0.86 mg/dL (0.550-1.02) Glomerular Filtration Rate Calc 67 mL/min (>90) BUN/Creatinine Ratio 15.1 (10.0-20.0) Serum Glucose 100 mg/dL (74-106) Calcium Level 10.2 mg/dL (8.7-10.4) Stool Occult Blood Negative (Negative) Stool Occult Blood Sample #3 (Negative) Iron Level 13 ug/dL (50-170) Total Iron Binding Capacity 411 ug/dL (250-425) Percent Iron Saturation 3.2 % (15-50) Test 04/17/25 23:35 04/17/25 22:56 04/17/25 22:16 Troponin I High Sensitivity < 3 ng/L (</=34) Urine Color Colorless (Yellow) Urine Clarity Clear (Clear) Urine pH 5.5 (5.0-9.0) Urine Specific [place] 1.007 (1.001-1.035) Urine Protein Negative (Negative) Urine Ketones Negative (Negative) Urine Blood Negative /uL (Negative) Urine Nitrite Negative (Negative) Urine Bilirubin Negative (Negative) Urine Urobilinogen Normal mg/dL (Negative) Urine Leukocyte Esterase 1+ /uL (Negative) Urine RBC None seen /hpf (0 - 4) Urine Microscopic WBC 4 /HPF (0-5) Urine Squamous Epithelial Cells None seen /hpf (<5) Urine Bacteria None seen /hpf (None Seen) Urine Glucose Normal mg/dL (Normal) POC Glucose 131 mg/dl (70-106) Other Laboratory Tests 04/20/25 05:05 04/19/25 05:49 Brief Hx & Hospital Course: 84-year-old female presents for evaluation of generalized weakness. Patient reports a one-week history of fatigue with occasional shortness for breath. She reports a history of anemia and last blood transfusion being on October of this year. Denies hematuria or melena. No cardiac complaints. Hb stable now Had EGD with gastritis Condition at Discharge: Good Final Diagnosis/Problems List acute blood loss anemia acute gi bleeding Discharge Disposition: Home Discharge Instruct/Medications Diet: Regular Activity: No Restrictions, As Tolerated Follow Up/Referral: PCP in 7 days Medications: pantoprazole Scheduled Atorvastatin Calcium (Atorvastatin Calcium), 1 TAB PO DAILY, (Reported) Azithromycin (Zithromax Z-Ganesh), 250 MG PO DAILY Benzonatate (Benzonatate), 1-2 CAP PO Q4HR Chlorthalidone (Chlorthalidone), 12.5 MG PO DAILY@BREAKFAST, (Reported) Ferrous Sulfate (Ferrous Sulfate), 1 TAB PO BID Levothyroxine Sodium (Levothyroxine Sodium), 1 TAB PO DAILY, (Reported) Lisinopril (Lisinopril), 1 TAB PO DAILY, (Reported) Metoprolol Tartrate (Metoprolol Tartrate), 0.5 TAB PO BID Pantoprazole Sodium Sesquihydr (Pantoprazole Sodium), 40 MG PO BID Sucralfate (Carafate), 1 GM PO BID Scheduled PRN Albuterol Sulfate (Albuterol Sulfate Hfa), 108 MCG IN TID PRN Miscellaneous Medications Atorvastatin Calcium (Atorvastatin Calcium), (Reported) Nifedipine (Nifedipine ER), (Reported) Discharge Statement: "Patient was advised to return to the ER or call 911 if any headaches, dizziness, shortness of breath, chest pain, abdominal pain, bleeding, fevers, or worsening of medical condition. Patient was counseled about treatment plan, medications, possible side effects, patientverbalized understanding. All questions were answered to the best of my ability. This discharge took greater then 30 minutes in planning, reviewing documentation, counseling the patient, and discussing with other team members." ASSESSMENT ASSESSMENT Assessment acute blood loss anemia acute gi bleeding Date of Service: Apr 20, 2025 Billing Provider: EVA DUMONT MD Common Visit Codes: [id number] DISCH DAY >30min EVA DUMONT MD Apr 20, 2025 18:46
[2025-04-21] MEDS ORDERED: PANTOPRAZOLE 40 MG TAB PO SCH (06:00)
== END 2025-04-20 19:36 | disposition home or self-care (01) | DRG 811 ==
LOC: ER 22:12 → EDBD 22:12 → OVERFLOW 04-18 04:36 → WEST WING 04-18 04:41 → ER 04-18 04:41 → WEST WING 04-18 12:09
PROVIDERS: ADMIT Hospitalist; ATTEND Hospitalist
PROC: 30233N1 Transfusion of Nonautologous Red Blood Cells into Peripheral Vein, Percutaneous Approach (ICD-10-PCS; principal; 2025-04-18)
PROC: 0DB98ZX Excision of Duodenum, Via Natural or Artificial Opening Endoscopic, Diagnostic (ICD-10-PCS; 2025-04-20)
PROC: 0DB68ZX Excision of Stomach, Via Natural or Artificial Opening Endoscopic, Diagnostic (ICD-10-PCS; 2025-04-20)
PROC: 0DB48ZX Excision of Esophagogastric Junction, Via Natural or Artificial Opening Endoscopic, Diagnostic (ICD-10-PCS; 2025-04-20)
DX: D62 Acute posthemorrhagic anemia (principal); K22.11 Ulcer of esophagus with bleeding; K29.71 Gastritis, unspecified, with bleeding; I10 Essential (primary) hypertension; E78.5 Hyperlipidemia, unspecified; K44.9 Diaphragmatic hernia without obstruction or gangrene; K21.9 Gastro-esophageal reflux disease without esophagitis; Z88.0 Allergy status to penicillin; Z90.710 Acquired absence of both cervix and uterus; Z79.899 Other long term (current) drug therapy; Z79.02 Long term (current) use of antithrombotics/antiplatelets
CPT/HCPCS: 36415; 36430; 43239; 71045; 80048; 81001; 82270; 82550; 82962; 83540; 83550; 83615; 84484; 85025; 85610; 85652; 86160; 86225; 86235; 86376; 86431; 86850; 86880; 86900; 86901; 86920; 93005; G0378; J2003; J2704

== ENCOUNTER 2025-05-03 17:29 | Inpatient (IN) | payer OTHER ==
[~2025-05-03] VITALS: Ht 162.6 cm; Wt 78.6 kg
[~2025-05-03 17:29] MED LIST changes: +CHLO25TA2 PO
[2025-05-03 19:18] LABS: Hematocrit 21.9 % (36.0-46.0); Hemoglobin 7.2 g/dL (12.2-16.2); Mean Corpuscular Hemoglobin 25.0 pg (28.0-32.0); Mean Corpuscular Volume 76.2 fL (80.0-100.0); Nucleated Red Blood Cells % 0.1 %
[2025-05-03 19:30] VITALS: PULSE 76; RESP 18; O2SAT 98
[2025-05-03 19:46] LABS: Alanine Aminotransferase 24 U/L (7-40); Albumin 4.8 g/dL (3.2-4.8); Alkaline Phosphatase 52 U/L (46-116); Anion Gap 9 (5-15); BUN/Creatinine Ratio 15.2 (10.0-20.0); Bilirubin, Total 0.3 mg/dL (0.2-1.0); Blood Urea Nitrogen 15 mg/dL (9-23); Calcium 9.3 mg/dL (8.7-10.4); Carbon Dioxide 25 mmol/L (20-31); Chloride 95 mmol/L (98-107); Glucose 89 mg/dL (74-106); Potassium 4.0 mmol/L (3.5-5.1); Sodium 129 mmol/L (136-145); Total Protein 6.9 g/dL (5.7-8.2)
--- NOTE | 2025-05-03 22:14 | ECG ---
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
--- NOTE | 2025-05-03 22:22 | ED.PDOC ---
History of Present Illness HPI Comments This patient is a very pleasant 84-year-old female who arrives the ED today after being advised to come in for evaluation due to critical anemia concerns. Patient's recent history was that she was at this facility a proximally one week ago with same complaints. Patient received a transfusion, was admitted and received a GI consultation including an endoscopy. Known notified the patient of the results of the endoscopy until she saw her primary care provider yesterday at which time, she was told there was a GI bleed. Patient returns today looking pale and displaying weakness. Patient was hypotensive on arrival. Chief Complaint: Abnormal LAB's Time Seen by MD: 17:30 Primary Care Provider: ELIS Reviewed Notes: Nurses Notes Allergies: Coded Allergies: Penicillins (Verified Allergy, Unknown, 03/29/25) Home Meds Active Scripts Metoprolol Tartrate (Metoprolol Tartrate) 25 Mg Tab, 0.5 TAB PO BID, #60 TAB 1 Refill Prov:VANESSA CAROLINA MD 04/03/25 Sucralfate (CARAFATE) 1 Gm Tab, 1 GM PO BID, #120 TAB Prov:VANESSA CAROLINA MD 04/03/25 Pantoprazole Sodium Sesquihydr (Pantoprazole Sodium) 40 Mg Tab, 40 MG PO BID, #60 TAB Prov:VANESSA CAROLINA MD 04/03/25 Benzonatate (Benzonatate) 100 Mg Cap, 1-2 CAP PO Q4HR, #60 CAP Prov:BRANDY BATISTA 02/01/25 Azithromycin (Zithromax Z-Ganesh) 250 Mg Tab, 250 MG PO DAILY for 5 Days, #5 TAB Prov:BRANDY BATISTAP 02/01/25 Albuterol Sulfate (Albuterol Sulfate Hfa) 108 Mcg/Act Aer, 108 MCG IN TID PRN, #1 AER Prov:BRANDY BATISTAP 02/01/25 Ferrous Sulfate (FERROUS SULFATE) 325 Mg Tb, 1 TAB PO BID for 60 Days, #120 TAB 3 Refills Prov:ALICJA JAMES NP 11/18/23 Reported Medications Chlorthalidone (Chlorthalidone) 25 Mg Tab, 12.5 MG PO DAILY@BREAKFAST, TAB 04/17/25 Nifedipine (Nifedipine ER) 30 Mg Tab 03/29/25 Atorvastatin Calcium (ATORVASTATIN CALCIUM) 20 Mg Tab 03/29/25 Lisinopril (Lisinopril) 40 Mg Tab, 1 TAB PO DAILY 11/17/23 Atorvastatin Calcium (ATORVASTATIN CALCIUM) 20 Mg Tab, 1 TAB PO DAILY 11/17/23 Levothyroxine Sodium (Levothyroxine Sodium) 75 Mcg Tab, 1 TAB PO DAILY 11/17/23 Information Source: Patient Mode of Arrival: Ambulatory Severity: Moderate Timing: Days Duration: Since onset Prehospital treatment: None Past Medical History PAST MEDICAL HISTORY: Anemia, GERD, High Lipids, HTN, Thyroid Surgical History: , Hysterectomy ELECTRICIAN REFINERY History: No Pertinent ELECTRICIAN REFINERY History Family History Family History: Reviewed,noncontributory to illness Social History Smoker: Non-Smoker Alcohol: Denies ETOH Use Drugs: Denies Drug Use Lives In: Home Constitutional: reports: fatigue, malaise, weakness; denies: chills, diaphoresis, fever, sweats, others EENTM: denies: blurred vision, double vision, ear bleeding, ear discharge, ear drainage, ear pain, ear ringing, eye pain, eye redness, hearing loss, mouth pain, mouth swelling, nasal discharge, nose bleeding, nose congestion, nose pain, photophobia, tearing, throat pain, throat swelling, voice changes, others Respiratory: denies: cough, hemoptysis, orthopnea, SOB at rest, shortness of breath, SOB with excertion, stridor, wheezing, others Cardiovascular: denies: chest pain, dizzy spells, diaphoresis, Dyspnea on exertion, edema, irregular heart beat, left arm pain, lightheadedness, palpitations, PND, syncope, others Gastrointestinal: denies: abdomen distended, abdominal pain, blood streaked bowels, constipated, diarrhea, dysphagia, difficulty swallowing, hematemesis, melena, nausea, poor appetite, poor fluid intake, rectal bleeding, rectal pain, vomiting, others Genitourinary: denies: abnormal vagina bleeding, burning, dyspareunia, dysuria, flank pain, frequency, hematuria, incontinence, pain, , vagina discharge, urgency, others Neurological: denies: dizziness, fainting, headache, left sided numbness, left sided weakness, numbness, paresthesia, pre-existing deficit, right sided n umbness, right sided weakness, seizure, speech problems, tingling, tremors, weakness, others Musculoskeletal: denies: back pain, gout, joint pain, joint swelling, muscle pain, muscle stiffness, neck pain, others Integumetry: denies: bruises, change in color, change in hair/nails, dryness, laceration, lesions, lumps, rash, wounds, others Allergic/Immunocompromised: denies: Difficulty Healing, Frequent Infections, Hives, Itching, others Hematologic/Lymphatic: reports: anemia; denies: blood clots, easy bleeding, easy bruising, swollen glands, others Endocrine: denies: excessive hunger, excessive sweating, excessive thirst, excessive urination, flushing, intolerance to cold, intolerance to heat, unexplained weight gain, unexplained weight loss, others Psychiatric: denies: anxiety, bipolar disorder, depression, hopeless, panic disorder, schizophrenia, sleepless, suicidal, others Physical Exam General Appearance: Moderate Distress (Patient appears to be in moderate distress due to her generalized weakness concerns.), Normal HEENT: Normal ENT Inspection, Pharynx Normal, TMs Normal Neck: Full Range of Motion, Non-Tender, Normal, Normal Inspection Respiratory: Chest Non-Tender, Lungs Clear, No Accessory Muscle Use, No Respiratory Distress, Normal Breath Sounds Cardiovascular: No Edema, No JVD, No Murmur, No Gallop, Normal Peripheral Pulses, Regular Rate/Rhythm Breast Exam: Deferred Gastrointestinal: No Organomegaly, Non Tender, No Pulsatile Mass, Normal Bowel Sounds, Soft Genitalia: Deferred Pelvic: Deferred Rectal: Deferred Extremities: No calf tenderness, Normal capillary refill, No pedal edema Neurologic: Alert Cerebellar Function: NOT DONE Reflexes: NOT DONE Skin: Dry, Normal Color, Warm Lymphatic: No Adenopathy Was a procedure done? Was a procedure done?: No Differential Dx Considerations may include: Anemia, sepsis, electrolyte abnormality, acute coronary syndrome, hypotension X-Ray, Labs, Meds, VS Vital Signs Date Time Temp Pulse Resp B/P (MAP) Pulse Ox O2 Delivery O2 Flow Rate FiO2 05/03/25 20:00 86 05/03/25 19:30 97.7 76 18 104/48 (66) 98 97.7 05/03/25 19:30 76 18 98 Room Air* 0 21 05/03/25 19:12 75 05/03/25 19:07 76 17 104/48 (66) 98 05/03/25 17:30 98.0 89 18 101/41 95 98.0 Lab Test 05/03/25 20:00 05/03/25 19:00 Range/Units Troponin I High Sensitivity 4 4 </=34 ng/L White Blood Count 9.1 4.4-10.8 10^3/uL Red Blood Count 2.88 L 4.0-5.20 10^6/uL Hemoglobin 7.2 L 12.2-16.2 g/dL Hematocrit 21.9 L 36.0-46.0 % Mean Corpuscular Volume 76.2 L 80.0-100.0 fL Mean Corpuscular Hemoglobin 25.0 L 28.0-32.0 pg Mean Corpuscular Hemoglobin Concent 32.8 32.0-36.0 g/dL Red Cell Distribution Width 20.9 H 11.8-14.3 % Platelet Count 426 140-450 10^3/uL Mean Platelet Volume 6.9 6.9-10.8 fL Neutrophils (%) (Auto) 60.7 37.0-80.0 % Lymphocytes (%) (Auto) 22.2 10.0-50.0 % Monocytes (%) (Auto) 13.0 H 0.0-12.0 % Eosinophils (%) (Auto) 2.9 0.0-7.0 % Basophils (%) (Auto) 1.2 0.0-2.0 % Neutrophils # (Auto) 5.5 1.6-8.6 10 ^3/uL Lymphocytes # (Auto) 2.0 0.4-5.4 10 ^3/uL Monocytes # (Auto) 1.2 0-1.3 10 ^3/uL Eosinophils # (Auto) 0.3 0-0.8 10 ^3/uL Basophils # (Auto) 0.1 0-0.2 10 ^3/uL Nucleated Red Blood Cells 0.1 % Sodium Level 129 L 136-145 mmol/L Potassium Level 4.0 3.5-5.1 mmol/L Chloride Level 95 L 98-107 mmol/L Carbon Dioxide Level 25 20-31 mmol/L Anion Gap 9 5-15 Blood Urea Nitrogen 15 9-23 mg/dL Creatinine 0.99 0.550-1.02 mg/dL Glomerular Filtration Rate Calc 57 >90 mL/min BUN/Creatinine Ratio 15.2 10.0-20.0 Serum Glucose 89 74-106 mg/dL Lactic Acid Level 1.3 0.4-2.0 mmol/L Calcium Level 9.3 8.7-10.4 mg/dL Total Bilirubin 0.3 0.2-1.0 mg/dL Aspartate Amino Transferase (AST) 19 13-40 U/L Alanine Aminotransferase (ALT) 24 7-40 U/L Alkaline Phosphatase 52 46-116 U/L B-Type Natriuretic Peptide 38.05 0-100 pg/mL Total Protein 6.9 5.7-8.2 g/dL Albumin 4.8 3.2-4.8 g/dL X-Ray, Labs, Meds, VS Comment All studies performed the ED were evaluated by me personally. Serum laboratorie s revealed a concerning anemia and therefore, patient was given two units of PRBC's. Additional findings of hyponatremia were noted. Patient's EKG revealed a sinus rhythm with a rate of 75. Abnormal inferior Q-waves were noted. CA interval 175 and QT interval 416. Additionally, patient continued to remain hypotensive long facility. Patient will be admitted for continued GI evaluation to address her GI bleed concerns as well as a possible cardiac evaluation of blood pressure and unusual EKG findings. Time of 1ST Reevaluation: 22:21 Reevaluation 1ST: Improved Consultation: PCP, Cardiology, GI Patient Education/Counseling: Diagnosis, Treatment Family Education/Counseling: Diagnosis, Treatment SEPSIS Sepsis Screen Date sepsis recognized/suspect: May 03, 2025 Time Sepsis recognized/suspect: 1929 Recent Procedure: No On Antibiotic Therapy: No Respiratory Rate >20: No Heart Rate >90: No Temp<36 C (96.8 F) or >38.3 C: No SBP <90 or MAP <65 mmHG: No New Acute Mental Status Change: No Is the patient on CPAP, BIPAP,: No Physician Orders Heplock Iv (05/03/25 ) Traffic Signal Repairer (05/03/25 ) Packedcell-Noactive Bleeding (05/03/25 20:27) Type And Screen (05/03/25 20:27) Obtain Consent For Anesthesia (05/03/25 20:27) Obtain Consent For: (05/03/25 20:27) Vital Signs Date Time Temp Pulse Resp B/P (MAP) Pulse Ox O2 Delivery O2 Flow Rate FiO2 05/03/25 20:00 86 05/03/25 19:30 97.7 76 18 104/48 (66) 98 97.7 05/03/25 19:30 76 18 98 Room Air* 0 21 05/03/25 19:12 75 05/03/25 19:07 76 17 104/48 (66) 98 05/03/25 17:30 98.0 89 18 101/41 95 98.0 Laboratory Tests Test 05/03/25 19:00 Lactic Acid Level 1.3 mmol/L (0.4-2.0) White Blood Count 9.1 10^3/uL (4.4-10.8) Departure 1 Departure Time of Disposition: 22:20 Impression: Primary Impression: Symptomatic anemia Additional Impressions: Hypotension Hyponatremia Disposition: ADMITTED INPATIENT Condition: Fair Discharged With: Self, Relative Critical Care Note Critical Care Time?: No Stability Stability form required: No Heart Score Heart Score: Heart Score Response (Comments) Value History Slightly Suspicious 0 EKG Repolarization Disturb 1 Age >65 2 Risk Factors 1 or 2 risk factors 1 Troponin Normal limit 0 Total 4 EMILY OSPINA PAC May 03, 2025 22:22
[2025-05-03] MEDS ORDERED: ONDANSETRON HCL 4 MG/2 ML VIAL IV PRN (22:45)
[2025-05-03] MEDS ORDERED: HYDROcodone-ACET 5/325MG TAB PO PRN (22:45)
[2025-05-03] MEDS ORDERED: ACETAMINOPHEN 325 MG TAB PO PRN (22:45)
[2025-05-03] MEDS ORDERED: DOCUSATE SOD 100 MG CAP PO PRN (22:45)
[2025-05-03] MEDS: SODIUM CHLORIDE 0.9% 1,000 ML IV ONE (22:57)
[2025-05-03 23:15] VITALS: BP 129/64; PULSE 87; RESP 19; TEMP 97.9
[2025-05-03 23:41] VITALS: BP 136/63; PULSE 89; RESP 16; TEMP 98
--- NOTE | 2025-05-03 23:41 | DVHHP2 ---
History of Present Illness Reason for Visit: Symptomatic anemia History of Present Illness The patient is a 84-year-old female with past medical history of GERD, anemia, thyroid disease, hyperlipidemia, and hypertension who presented to [facility] ED for evaluation of generalized weakness. Patient was recently seen at this facility a proximally one week ago with same complaints, received blood transfusion, was admitted and received GI consultation including an endoscopy. Patient was seen and evaluated in the ED, laboratory data shows WBC 9.1, hemoglobin 7.2, hematocrit 21.9, platelets 426, sodium 129, potassium 4.0, BUN 15, creatinine 0.99, glucose 89, BNP 38.05, troponin 4, blood pressure 104/48, heart rate 86, temperature 97.7 F, O2 saturation 98% on room air. Patient received 2 units of PRBC, please see medication orders section in the computer. On my assessment, patient denied chest pain, no headache, no dizziness, no diaphoresis, no shortness of breaths, no diarrhea, no nausea, no vomiting, no fever, no chills. Patient was admitted for further evaluation and medical management. Past Medical History Anemia, GERD, High Lipids, HTN, Thyroid Past Surgical History , Hysterectomy Family History Reviewed, noncontributory to the management of this case. Past Social History The patient lives at home, denies smoking, alcohol or illicit drugs abuse. Review of Systems Constitutional: Yes: Weakness, Malaise, Other (Fatigue); No: Fever, Chills, Sweats Eyes: No: Pain, Vision change, Conjunctivae inflammation, Eyelid inflammation, Other, Redness ENT: No: Ear pain, Ear discharge, Nose pain, Nose discharge, Nose congestion, Mouth pain, Mouth swelling, Throat pain, Throat swelling, Other Respiratory: No: Cough, Dry, Shortness of breath, SOB with excertion, Wheezing, Hemoptysis, Pleuritic Pain, Sputum, Wheezing, Other Cardiovascular: No: Chest Pain, Palpitations, Orthopnea, Paroxysmal Noc. Dysp sang, Edema, Lt Headedness, Other Gastrointestinal: No: Nausea, Vomiting, Abdominal Pain, Diarrhea, Constipation, Melena, Hematochezia, Other Genitourinary: No Dysuria, No Frequency, No Incontinence, No Hematuria, No Retention, No Other Musculoskeletal: No: other, neck pain, shoulder pain, arm pain, back pain, hand pain, leg pain, foot pain Skin: No: Rash, Lesions, Jaundice, Bruising, Other Neurological: No: Weakness, Numbness, Incoordination, Change in speech, Confusion, Seizures, Other Allergies: Coded Allergies: Penicillins (Verified Allergy, Unknown, 03/29/25) Medications Current Medications Medications Dose Ordered Sig/Conner Route Start Time Stop Time Status Last Admin Dose Admin Atorvastatin Calcium 20 mg HS PO 05/04/25 22:00 Levothyroxine Sodium 75 mcg QAM@0600 PO 05/04/25 06:00 Sodium Chloride 1,000 ml @ 60 mls/hr [id number] IV 05/03/25 22:45 Acetaminophen/ Hydrocodone Bitart 1 tab Q4HP PRN PO 05/03/25 22:45 Ondansetron HCl 4 mg Q4HP PRN IV 05/03/25 22:45 Docusate Sodium 100 mg BIDPRN PRN PO 05/03/25 22:45 Acetaminophen 650 mg Q6HP PRN PO 05/03/25 22:45 Nitroglycerin 0.4 mg Q5MINP PRN SL 05/03/25 23:45 UNV Morphine Sulfate 2 mg Q30M PRN IV 05/03/25 23:45 UNV Exam Vital Signs Vital Signs Date Time Temp Pulse Resp B/P (MAP) Pulse Ox O2 Delivery O2 Flow Rate FiO2 05/03/25 23:15 97.9 87 19 129/64 97.9 05/03/25 22:00 96 05/03/25 19:30 Room Air* 0 21 General Appearance: Alert, Oriented X3, Cooperative, No acute distress HEENT: Atraumatic, PERRLA, EOMI, Mucous membr. moist/pink Respiratory: Clear to auscultation, Normal air movement Cardiovascular: Regular rate, Normal S1, Normal S2, No murmurs Abdominal: Normal bowel sounds, Soft, No tenderness, No hepatospenomegaly, No masses Extremities: No clubbing, No cyanosis, No edema, Normal pulses, No tend erness/swelling Skin: No rashes, No breakdown, No significant lesion Neuro: Normal speech, Normal tone, Sensation intact, Cranial nerves 3-12 NL, Reflexes 2+, Other (Generalized weakness) Psych/Mental Status: Mental status NL, Mood NL Labs/Xrays Labs Test 05/03/25 20:00 05/03/25 19:00 Range/Units Troponin I High Sensitivity 4 </=34 ng/L Thyroid Stimulating Hormone (TSH) 1.99 0.55-4.78 uIU/mL White Blood Count 9.1 4.4-10.8 10^3/uL Red Blood Count 2.88 L 4.0-5.20 10^6/uL Hemoglobin 7.2 L 12.2-16.2 g/dL Hematocrit 21.9 L 36.0-46.0 % Mean Corpuscular Volume 76.2 L 80.0-100.0 fL Mean Corpuscular Hemoglobin 25.0 L 28.0-32.0 pg Mean Corpuscular Hemoglobin Concent 32.8 32.0-36.0 g/dL Red Cell Distribution Width 20.9 H 11.8-14.3 % Platelet Count 426 140-450 10^3/uL Mean Platelet Volume 6.9 6.9-10.8 fL Neutrophils (%) (Auto) 60.7 37.0-80.0 % Lymphocytes (%) (Auto) 22.2 10.0-50.0 % Monocytes (%) (Auto) 13.0 H 0.0-12.0 % Eosinophils (%) (Auto) 2.9 0.0-7.0 % Basophils (%) (Auto) 1.2 0.0-2.0 % Neutrophils # (Auto) 5.5 1.6-8.6 10 ^3/uL Lymphocytes # (Auto) 2.0 0.4-5.4 10 ^3/uL Monocytes # (Auto) 1.2 0-1.3 10 ^3/uL Eosinophils # (Auto) 0.3 0-0.8 10 ^3/uL Basophils # (Auto) 0.1 0-0.2 10 ^3/uL Nucleated Red Blood Cells 0.1 % Sodium Level 129 L 136-145 mmol/L Potassium Level 4.0 3.5-5.1 mmol/L Chloride Level 95 L 98-107 mmol/L Carbon Dioxide Level 25 20-31 mmol/L Anion Gap 9 5-15 Blood Urea Nitrogen 15 9-23 mg/dL Creatinine 0.99 0.550-1.02 mg/dL Glomerular Filtration Rate Calc 57 >90 mL/min BUN/Creatinine Ratio 15.2 10.0-20.0 Serum Glucose 89 74-106 mg/dL Lactic Acid Level 1.3 0.4-2.0 mmol/L Calcium Level 9.3 8.7-10.4 mg/dL Total Bilirubin 0.3 0.2-1.0 mg/dL Aspartate Amino Transferase (AST) 19 13-40 U/L Alanine Aminotransferase (ALT) 24 7-40 U/L Alkaline Phosphatase 52 46-116 U/L B-Type Natriuretic Peptide 38.05 0-100 pg/mL Total Protein 6.9 5.7-8.2 g/dL Albumin 4.8 3.2-4.8 g/dL SEPSIS Sepsis Screen Date sepsis recognized/suspect: May 03, 2025 Time Sepsis recognized/suspect: 1929 Recent Procedure: No On Antibiotic Therapy: No Respiratory Rate >20: No Heart Rate >90: No Temp<36 C (96.8 F) or >38.3 C: No SBP <90 or MAP <65 mmHG: No New Acute Mental Status Change: No Is the patient on CPAP, BIPAP,: No Physician Orders Heplock Iv (05/03/25 ) Motor Bus Driver (05/03/25 ) Type And Screen (05/03/25 20:27) Obtain Consent For Anesthesia (05/03/25 20:27) Obtain Consent For: (05/03/25 20:27) Atorvastatin (Lipitor) (05/04/25 22:00) Levothyroxine Tablet (Synthroid Tablet) (05/04/25 06:00) Allergies (05/03/25 22:36) Code Status (05/03/25 22:36) Sodium Chloride 0.9% (05/03/25 22:45) Oxygen Per Hour (05/03/25 22:36) Hydrocodone-Acet 5/325mg Tab ([place] 5/32 (05/03/25 22:45) Ondansetron Hcl (Zofran) (05/03/25 22:45) Docusate Sodium Capsule (Colace Capsule) (05/03/25 22:45) Fall Risk Precautions In Place QSHIFT (05/03/25 22:36) Complete Blood Count (05/04/25 04:00) Comprehensive Metabolic Panel (05/04/25 04:00) Cardiac Diet-2gna,Lofat,Lochol (05/04/25 Breakfast) Condition: Serious (05/03/25 22:36) Acetaminophen Tablet (Tylenol Tablet) (05/03/25 22:45) Maintain Bed Rest (05/03/25 22:36) Sequential Compression Device (05/03/25 ) Admit (05/03/25 23:37) Nitroglycerin Sublingual (Ntrostat Subli (05/03/25 23:45) Morphine Sulfate Injection (05/03/25 23:45) Stat Ekg For Chest Pain (05/03/25 23:37) Notify Of Changes From Base (05/03/25 23:37) Hat Blocking Machine Operator For 24 Hours (05/03/25 23:37) Emergency Dysrhythmia Protocol (05/03/25 23:37) Rhythm Strips Once Every Shift (05/03/25 23:37) Oxygen By Nasal Cannula (05/03/25 23:37) Vital Signs Date Time Temp Pulse Resp B/P (MAP) Pulse Ox O2 Delivery O2 Flow Rate FiO2 05/03/25 23:15 97.9 87 19 129/64 97.9 05/03/25 22:00 89 19 132/64 (86) 96 05/03/25 20:00 86 05/03/25 19:30 97.7 76 18 104/48 (66) 98 97.7 05/03/25 19:30 76 18 98 Room Air* 0 21 05/03/25 19:12 75 05/03/25 19:07 76 17 104/48 (66) 98 05/03/25 17:30 98.0 89 18 101/41 95 98.0 Laboratory Tests Test 05/03/25 19:00 Lactic Acid Level 1.3 mmol/L (0.4-2.0) White Blood Count 9.1 10^3/uL (4.4-10.8) Medications Medications Dose Ordered Sig/Conner Route Start Time Stop Time Status Last Admin Dose Admin Sodium Chloride 1,000 ml @ 200 mls/hr Q5H ONCE IV 05/03/25 22:30 05/03/25 23:17 DC 05/03/25 22:57 200 MLS/HR Assessment/Plan Assessment/Plan Symptomatic anemia Hypotension Hyponatremia Generalized weakness Plan 1. Admit to telemetry unit 2. Breathing treatment 3. Pain control management 4. IV antibiotic management 5. Management of fluids and electrolytes 6. Consultation for hospitalist 7. Diagnostic test chest x-ray 8. DVT prophylaxis on SCDs 9. Repeat labs CBC, CMP in a.m. 10. Home medication reviewed and reconciled 11. Continue with current medical management 12. Treatment plan discussed with patient and RN. Patient verbalized under standing. Plan discussed with: Patient, Other (RN) My Orders Orders - YINA MEDEIROS DNP Procedure Category Date Status Time Atorvastatin (Lipitor) PHA 05/04/25 In Process 22:00 Levothyroxine Tablet PHA 05/04/25 In Process (Synthroid Tablet) 06:00 Allergies ROBERTO 05/03/25 In Process 22:36 Code Status CODE 05/03/25 Transmitted 22:36 Sodium Chloride 0.9% PHA 05/03/25 In Process 22:45 Oxygen Per Hour RT 05/03/25 Transmitted 22:36 Hydrocodone-Acet PHA 05/03/25 In Process 5/325mg Tab ([place] 22:45 Ondansetron Hcl PHA 05/03/25 In Process (Zofran) 22:45 Docusate Sodium PHA 05/03/25 In Process Capsule (Colace 22:45 Fall Risk Precautions ROBERTO 05/03/[address] 22:36 Complete Blood Count LAB 05/04/25 Verified 04:00 Comprehensive LAB 05/04/25 Verified Metabolic Panel 04:00 Cardiac DIET 05/04/25 Transmitted Diet-2gna,Lofat,Lochol Breakfast Condition: Serious ROBERTO 05/03/25 In Process 22:36 Acetaminophen Tablet PHA 05/03/25 In Process (Tylenol Tablet) 22:45 Maintain Bed Rest ROBERTO 05/03/25 In Process 22:36 Sequential ROBERTO 05/03/25 In Process Compression Device Admit ADMIT 05/03/25 Transmitted 23:37 Nitroglycerin PHA 05/03/25 Logged Sublingual (Ntrostat 23:45 Morphine Sulfate PHA 05/03/25 Logged Injection 23:45 Stat Ekg For Chest ROBERTO 05/03/25 In Process Pain 23:37 Notify Of Changes ROBERTO 05/03/25 In Process From Base 23:37 Hat Blocking Machine Operator For ROBERTO 05/03/25 In Process 24 Hours 23:37 Emergency Dysrhythmia ROBERTO 05/03/25 In Process Protocol 23:37 Rhythm Strips Once ROBERTO 05/03/25 In Process Every Shift 23:37 Oxygen By Nasal RT 05/03/25 Transmitted Cannula 23:37 Problem List: (1) Symptomatic anemia (2) Hyponatremia (3) Hypotension (4) Generalized weakness Date of Service: May 03, 2025 Billing Provider: YINA MEDEIROS DNP Common Visit Codes: [id number] INP/OBS CARE (HIGH) YINA MEDEIROS DNP May 03, 2025 23:41
[2025-05-03] MEDS ORDERED: NITROGLYCERIN 0.4 MG SL TAB SL PRN (23:45)
[2025-05-03] MEDS ORDERED: MORPHINE SULFATE INJ 2 MG/ml SYRG IV PRN (23:45)
[2025-05-04] VITALS (10 sets, daily range): BP systolic 127–159; BP diastolic 46–77; PULSE 84–90; RESP 15–20; TEMP 97.8–98.2; O2SAT 95–98
[2025-05-04] MEDS: SODIUM CHLORIDE 0.9% 1,000 ML IV SCH (00:22)
[2025-05-04] MEDS: LEVOTHYROXINE SODIUM 25 MCG TAB PO SCH (05:36)
[2025-05-04 05:57] LABS: Hematocrit 29.7 % (36.0-46.0); Hemoglobin 10.2 g/dL (12.2-16.2); Mean Corpuscular Hemoglobin 27.5 pg (28.0-32.0); Mean Corpuscular Volume 79.6 fL (80.0-100.0); Nucleated Red Blood Cells % 0.2 %
[2025-05-04 06:09] LABS: Alanine Aminotransferase 23 U/L (7-40); Albumin 4.6 g/dL (3.2-4.8); Alkaline Phosphatase 50 U/L (46-116); Anion Gap 11 (5-15); BUN/Creatinine Ratio 12.5 (10.0-20.0); Blood Urea Nitrogen 11 mg/dL (9-23); Calcium 9.1 mg/dL (8.7-10.4); Carbon Dioxide 23 mmol/L (20-31); Chloride 100 mmol/L (98-107); Glucose 89 mg/dL (74-106); Potassium 4.0 mmol/L (3.5-5.1); Total Protein 6.5 g/dL (5.7-8.2)
[2025-05-04 06:10] LABS: Bilirubin, Total 0.5 mg/dL (0.2-1.0)
[2025-05-04 06:14] LABS: Sodium 134 mmol/L (136-145)
[2025-05-04 13:28] LABS: Hematocrit 31.6 % (36.0-46.0); Hemoglobin 10.5 g/dL (12.2-16.2)
--- NOTE | 2025-05-04 17:27 | DVHPN2 ---
Subjective Patient is feeling better after transfusion Reviewed: H&P Changes from previous H/P or p: No Changes General: Per HPI Objective Vitals Vital Signs Date Time Temp Pulse Resp B/P (MAP) Pulse Ox O2 Delivery O2 Flow Rate FiO2 05/04/25 15:00 91 18 125/51 (75) 97 05/04/25 07:55 Room Air* 0 21 05/04/25 03:43 97.9 97.9 Intake/Output Intake and Output 05/04/25 07:00 Intake Total 1410 ml Output Total 0 ml Balance 1410 ml Intake Oral 0 ml IV Total 210 ml Blood Product 1200 ml Output Urine Total 0 ml Exam GEN: Healthy appearing, well-developed, NAD. HEENT: NC/AT; MMM. CV: RRR, no m/r/g. LUNGS: CTAB, no w/r/c. ABD: Soft, NT/ND, NBS, no masses or organomegaly. EXT: skin Warm, well perfused. no rashes. No clubbing, cyanosis, or edema. NEURO: Ambulating with no limitations. No focal deficits. Medications Current Medications Medications Dose Ordered Sig/Conner Route Start Time Stop Time Status Last Admin Dose Admin Atorvastatin Calcium 20 mg HS PO 05/04/25 22:00 Levothyroxine Sodium 75 mcg QAM@0600 PO 05/04/25 06:00 05/04/25 05:36 75 MCG Sodium Chloride 1,000 ml @ 60 mls/hr [id number] IV 05/03/25 22:45 05/04/25 15:34 60 MLS/HR Acetaminophen/ Hydrocodone Bitart 1 tab Q4HP PRN PO 05/03/25 22:45 Ondansetron HCl 4 mg Q4HP PRN IV 05/03/25 22:45 Docusate Sodium 100 mg BIDPRN PRN PO 05/03/25 22:45 Acetaminophen 650 mg Q6HP PRN PO 05/03/25 22:45 Nitroglycerin 0.4 mg Q5MINP PRN SL 05/03/25 23:45 Morphine Sulfate 2 mg Q30M PRN IV 05/03/25 23:45 Laboratory Results Laboratory Tests 05/04/25 04:35 05/04/25 13:02 Chemistry Test 05/03/25 19:00 05/04/25 04:35 Albumin 4.8 g/dL (3.2-4.8) 4.6 g/dL (3.2-4.8) Calcium Level 9.3 mg/dL (8.7-10.4) 9.1 mg/dL (8.7-10.4) Total Protein 6.9 g/dL (5.7-8.2) 6.5 g/dL (5.7-8.2) Cardiac Markers Test 05/03/25 19:00 B-Type Natriuretic Peptide 38.05 pg/mL (0-100) LFT Test 05/03/25 19:00 05/04/25 04:35 Alanine Aminotransferase (ALT) 24 U/L (7-40) 23 U/L (7-40) Alkaline Phosphatase 52 U/L (46-116) 50 U/L (46-116) Aspartate Amino Transferase (AST) 19 U/L (13-40) 23 U/L (13-40) Total Bilirubin 0.3 mg/dL (0.2-1.0) 0.5 mg/dL (0.2-1.0) HgA1c, TSH Test 05/03/25 20:00 Thyroid Stimulating Hormone (TSH) 1.99 uIU/mL (0.55-4.78) Labs and/or images reviewed: Labs reviewed by me, Image(s) reviewed by me Assessment/Plan Assessment/Plan HPI : 84-year-old female with past medical history of Dyslipidemia, hypertension, thyroid, critical anemia. who arrives the ED today after being advised to come in for evaluation due to critical anemia concerns. Patient's recent history was that she was at this facility a proximally one week ago with same complaints. Patient received a transfusion, was admitted and received a GI consultation including an endoscopy. Known notified the patient of the results of the endoscopy until she saw her primary care provider yesterday at which time, she was told there was a GI bleed. Patient returns today looking pale and displaying weakness. Patient was hypotensive on arrival. 05/04: Patient was recently admitted in 04/20/2025. Having EGD which showed gastritis. She at that time presented with generalized weakness and shortness of breath occasionally. Presents again with anemia concern feeling weak. She is noted to have low blood pressures initially. Units of blood were given. Initial blood level 7.4 but outpatient apparently less 7. Patient is feeling better but once in all why she keeps having anemia. She has had multiple admissions for anemia. This is likely we will need Hematology outpatient referral. We will repeat hemoglobin in a.m. if stable we will discharge tomorrow. Today we will get the liquid ultrasound, reticulocyte count for reticulocyte index calculation tomorrow, LDH, stool occult blood. Hemoglobin stable, Likely discharge tomorrow follow up with Urology outpatient. Diagnosis: Acute, symptomatic anemia, Dyslipidemia, hypertension, thyroid disease critical anemia Continue diet Tele Full code Plan discussed with: Patient Date of Service: May 04, 2025 Billing Provider: JOSIAH SARMIENTO MD Common Visit Codes: [id number] INP/OBS CARE(HIGH) JOSIAH SARMIENTO MD May 04, 2025 17:27
[2025-05-04 18:53] LABS: Hematocrit 29.1 % (36.0-46.0); Hemoglobin 9.8 g/dL (12.2-16.2)
[2025-05-04] MEDS: ATORVASTATIN 20 MG TAB PO SCH (20:46)
[2025-05-05] VITALS (10 sets, daily range): BP systolic 126–158; BP diastolic 66–97; PULSE 75–94; RESP 18–20; TEMP 97.7–98.3; O2SAT 94–96
--- NOTE | 2025-05-05 17:57 | DVHPN2 ---
Subjective I am assuming the care of the patient from today onwards. Patient is currently hemoglobin hematocrit stable denies any hematemesis hematochezia or melena. Patient does complaining of shortness of breaths on minimal exertion. Reviewed: H&P Changes from previous H/P or p: No Changes General: Per HPI Eyes: No Pain, No Vision change, No Conjunctivae inflammation, No Eyelid inflammation, No Other, No Redness ENT: No Ear pain, No Ear discharge, No Nose pain, No Nose discharge, No Nose congestion, No Mouth pain, No Mouth swelling, No Throat pain, No Throat swelling, No Other Cardiovascular: No Chest Pain, No Palpitations, No Orthopnea, No Paroxysmal Noc. Dyspnea, No Edema, No Lt Headedness, No Other Respiratory: No Cough, No Dry, No Shortness of breath, No SOB with excertion, No Wheezing, No Hemoptysis, No Pleuritic Pain, No Sputum, No Other Gastrointestinal: No Nausea, No Vomiting, No Abdominal Pain, No Diarrhea, No Constipation, No Melena, No Hematochezia, No Other Genitourinary: No Dysuria, No Frequency, No Incontinence, No Hematuria, No Retention, No Other Musculoskeletal: No other, No neck pain, No shoulder pain, No arm pain, No back pain, No hand pain, No leg pain, No foot pain Skin: No Rash, No Lesions, No Jaundice, No Bruising, No Other Objective Vitals Vital Signs Date Time Temp Pulse Resp B/P (MAP) Pulse Ox O2 Delivery O2 Flow Rate FiO2 05/05/25 13:00 97.7 81 18 137/73 (94) 95 97.7 05/05/25 08:00 Room Air* 0 21 Intake/Output Intake and Output 05/05/25 07:00 Intake Total 2720 ml Balance 2720 ml Intake Oral 1180 ml IV Total 1540 ml # Voids 1 Exam HEENT pupils are reactive supple CV is S1-S2 regular rate and rhythm Diminished breath sounds bases GI positive bowel sounds soft nondistended nontender no guarding no rigidity 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 Medications Current Medications Medications Dose Ordered Sig/Conner Route Start Time Stop Time Status Last Admin Dose Admin Atorvastatin Calcium 20 mg HS PO 05/04/25 22:00 05/04/25 20:46 20 MG Levothyroxine Sodium 75 mcg QAM@0600 PO 05/04/25 06:00 8/9/25 05:40 75 MCG Sodium Chloride 1,000 ml @ 60 mls/hr [id number] IV 05/03/25 22:45 05/05/25 05:40 60 MLS/HR Acetaminophen/ Hydrocodone Bitart 1 tab Q4HP PRN PO 05/03/25 22:45 Ondansetron HCl 4 mg Q4HP PRN IV 05/03/25 22:45 Docusate Sodium 100 mg BIDPRN PRN PO 05/03/25 22:45 Acetaminophen 650 mg Q6HP PRN PO 05/03/25 22:45 Nitroglycerin 0.4 mg Q5MINP PRN SL 05/03/25 23:45 Morphine Sulfate 2 mg Q30M PRN IV 05/03/25 23:45 Laboratory Results Laboratory Tests 05/04/25 04:35 05/04/25 18:24 Assessment/Plan Assessment/Plan 84-year-old female with a known history of hypertension, dyslipidemia, hypothyroidism, recent diagnosis of esophagitis and gastritis on EGD presented to the hospital with the increasing shortness a breath generalized weakness found to have 1. Acute on chronic anemia status post 2 units of packed RBC 2. Rule out any GI bleed 3. Shortness of breaths suspected secondary to symptomatic anemia 4. Hypertension 5. Dyslipidemia 6. Hypothyroidism -monitor H&H, GI consultation plan of care discussed with the patient's patient's daughter at bedside they understand verbalized understanding and agreeable to plan -continue Protonix and Carafate. Plan discussed with: Patient, Daughter My Orders Orders - DORITA PROCTOR MD Procedure Category Date Status Time Complete Blood Count LAB 05/06/25 Verified 04:00 Basic Metabolic Panel LAB 05/06/25 Verified 04:00 * Gi [facility] Plans Staff Officer CONS 05/05/25 Transmitted 15:01 Date of Service: May 05, 2025 Billing Provider: DORITA PROCTOR MD Common Visit Codes: [id number] INP/OBS CARE(MOD) DORITA PROCTOR MD May 05, 2025 17:57
[2025-05-06] VITALS (8 sets, daily range): BP systolic 130–151; BP diastolic 65–72; PULSE 71–85; RESP 14–18; TEMP 97.4–98.1; O2SAT 94–96
[2025-05-06 04:41] LABS: Hemoglobin 10.4 g/dL (12.2-16.2)
[2025-05-06 04:44] LABS: Hematocrit 30.3 % (36.0-46.0); Mean Corpuscular Hemoglobin 27.3 pg (28.0-32.0); Mean Corpuscular Volume 79.9 fL (80.0-100.0); Nucleated Red Blood Cells % 0.1 %
[2025-05-06 05:18] LABS: Potassium 3.8 mmol/L (3.5-5.1)
[2025-05-06 05:19] LABS: Anion Gap 11 (5-15); Carbon Dioxide 26 mmol/L (20-31)
[2025-05-06 05:20] LABS: Calcium 9.5 mg/dL (8.7-10.4)
[2025-05-06 05:21] LABS: Chloride 96 mmol/L (98-107); Sodium 133 mmol/L (136-145)
[2025-05-06 05:25] LABS: BUN/Creatinine Ratio 13.3 (10.0-20.0); Blood Urea Nitrogen 10 mg/dL (9-23); Glucose 98 mg/dL (74-106)
[2025-05-06] MEDS ORDERED: SUCR1TAB31 OR (12:44)
[2025-05-06] MEDS ORDERED: PANT40TA2 PO (12:44)
--- NOTE | 2025-05-06 12:55 | DVHDS2 ---
Discharge Summary Date of Admission May 03, 2025 at 23:37 Date of Discharge: May 06, 2025 Labs/Diagnostic Data: Laboratory Results Test 05/06/25 04:06 05/04/25 23:35 05/04/25 18:24 05/04/25 04:35 White Blood Count 8.1 10^3/uL (4.4-10.8) Red Blood Count 3.79 10^6/uL (4.0-5.20) Hemoglobin 10.4 g/dL (12.2-16.2) Hematocrit 30.3 % (36.0-46.0) Mean Corpuscular Volume 79.9 fL (80.0-100.0) Mean Corpuscular Hemoglobin 27.3 pg (28.0-32.0) Mean Corpuscular Hemoglobin Concent 34.2 g/dL (32.0-36.0) Red Cell Distribution Width 20.0 % (11.8-14.3) Platelet Count 359 10^3/uL (140-450) Mean Platelet Volume 6.8 fL (6.9-10.8) Neutrophils (%) (Auto) 72.6 % (37.0-80.0) Lymphocytes (%) (Auto) 14.8 % (10.0-50.0) Monocytes (%) (Auto) 9.2 % (0.0-12.0) Eosinophils (%) (Auto) 2.7 % (0.0-7.0) Basophils (%) (Auto) 0.7 % (0.0-2.0) Neutrophils # (Auto) 5.9 10 ^3/uL (1.6-8.6) Lymphocytes # (Auto) 1.2 10 ^3/uL (0.4-5.4) Monocytes # (Auto) 0.7 10 ^3/uL (0-1.3) Eosinophils # (Auto) 0.2 10 ^3/uL (0-0.8) Basophils # (Auto) 0.1 10 ^3/uL (0-0.2) Nucleated Red Blood Cells 0.1 % Sodium Level 133 mmol/L (136-145) Potassium Level 3.8 mmol/L (3.5-5.1) Chloride Level 96 mmol/L (98-107) Carbon Dioxide Level 26 mmol/L (20-31) Anion Gap 11 (5-15) Blood Urea Nitrogen 10 mg/dL (9-23) Creatinine 0.75 mg/dL (0.550-1.02) Glomerular Filtration Rate Calc 79 mL/min (>90) BUN/Creatinine Ratio 13.3 (10.0-20.0) Serum Glucose 98 mg/dL (74-106) Calcium Level 9.5 mg/dL (8.7-10.4) Stool Occult Blood Positive (Negative) Stool Occult Blood Sample #3 (Negative) Reticulocyte Count (auto) 2.26 % (0.5-1.5) Lactate Dehydrogenase 170 U/L (120-246) Total Bilirubin 0.5 mg/dL (0.2-1.0) Aspartate Amino Transferase (AST) 23 U/L (13-40) Alanine Aminotransferase (ALT) 23 U/L (7-40) Alkaline Phosphatase 50 U/L (46-116) Total Protein 6.5 g/dL (5.7-8.2) Albumin 4.6 g/dL (3.2-4.8) Test 05/03/25 20:00 05/03/25 19:00 Troponin I High Sensitivity 4 ng/L (</=34) Thyroid Stimulating Hormone (TSH) 1.99 uIU/mL (0.55-4.78) Lactic Acid Level 1.3 mmol/L (0.4-2.0) B-Type Natriuretic Peptide 38.05 pg/mL (0-100) Other Laboratory Tests 05/06/25 04:06 Brief Hx & Hospital Course: 84-year-old female with a known history of hypertension, dyslipidemia, hypothyroidism, recent diagnosis of esophagitis and gastritis on EGD presented to the hospital with the increasing shortness a breath generalized weakness found to have 1. Acute on chronic anemia status post 2 units of packed RBC 2. Rule out any GI bleed 3. Shortness of breaths suspected secondary to symptomatic anemia 4. Hypertension 5. Dyslipidemia 6. Hypothyroidism Condition at Discharge: Stable Final Diagnosis/Problems List 84-year-old female with a known history of hypertension, dyslipidemia, hypothyroidism, recent diagnosis of esophagitis and gastritis on EGD presented to the hospital with the increasing shortness a breath generalized weakness found to have 1. Acute on chronic anemia status post 2 units of packed RBC 2. Ruled out upper GI bleed 3. Shortness of breaths suspected secondary to symptomatic anemia 4. Hypertension 5. Dyslipidemia 6. Hypothyroidism Discharge Disposition: Home with Health Services SNF Discharge Will this Physician continue t: No Discharge Instruct/Medications Diet: Cardiac 2g Na,low cholest Activity: No Restrictions, As Tolerated Follow Up/Referral: Follow up with the PCP in one week Follow up with the GI in two weeks. Medications: Protonix and Carafate as prescribed. New Medications: Pantoprazole Sodium Sesquihydr (Protonix) 40 Mg Tab 40 MG PO BID, #60 TAB Sucralfate (Carafate) 1 Gm Tab 1 GM OR ACHS for 30 Days, #120 TAB Continued Medications: Atorvastatin Calcium (Atorvastatin Calcium) 20 Mg Tab 1 TAB PO DAILY Chlorthalidone (Chlorthalidone) 25 Mg Tab 12.5 MG PO DAILY@BREAKFAST, TAB Ferrous Sulfate (Ferrous Sulfate) 325 Mg Tb 1 TAB PO BID for 60 Days, #120 TAB 3 Refills Levothyroxine Sodium (Levothyroxine Sodium) 75 Mcg Tab 1 TAB PO DAILY Lisinopril (Lisinopril) 40 Mg Tab 1 TAB PO DAILY Metoprolol Tartrate (Metoprolol Tartrate) 25 Mg Tab 0.5 TAB PO BID, #60 TAB 1 Refill Nifedipine (Nifedipine ER) 30 Mg Tab Pantoprazole Sodium Sesquihydr (Pantoprazole Sodium) 40 Mg Tab 40 MG PO BID, #60 TAB Sucralfate (Carafate) 1 Gm Tab 1 GM PO BID, #120 TAB Scheduled Atorvastatin Calcium (Atorvastatin Calcium), 1 TAB PO DAILY, (Reported) Chlorthalidone (Chlorthalidone), 12.5 MG PO DAILY@BREAKFAST, (Reported) Ferrous Sulfate (Ferrous Sulfate), 1 TAB PO BID Levothyroxine Sodium (Levothyroxine Sodium), 1 TAB PO DAILY, (Reported) Lisinopril (Lisinopril), 1 TAB PO DAILY, (Reported) Metoprolol Tartrate (Metoprolol Tartrate), 0.5 TAB PO BID Pantoprazole Sodium Sesquihydr (Pantoprazole Sodium), 40 MG PO BID Pantoprazole Sodium Sesquihydr (Protonix), 40 MG PO BID Sucralfate (Carafate), 1 GM PO BID Sucralfate (Carafate), 1 GM OR ACHS Miscellaneous Medications Nifedipine (Nifedipine ER), (Reported) Discharge Statement: "Patient was advised to return to the ER or call 911 if any headaches, dizziness, shortness of breath, chest pain, abdominal pain, bleeding, fevers, or worsening of medical condition. Patient was counseled about treatment plan, medications, possible side effects, patientverbalized understanding. All questions were answered to the best of my ability. This discharge took greater then 30 minutes in planning, reviewing documentation, counseling the patient, and discussing with other team members." ASSESSMENT ASSESSMENT Assessment 84-year-old female with a known history of hypertension, dyslipidemia, hypothyroidism, recent diagnosis of esophagitis and gastritis on EGD presented to the hospital with the increasing shortness a breath generalized weakness found to have 1. Acute on chronic anemia status post 2 units of packed RBC 2. Ruled out upper GI bleed 3. Shortness of breaths suspected secondary to symptomatic anemia 4. Hypertension 5. Dyslipidemia 6. Hypothyroidism DORITA PROCTOR MD May 06, 2025 12:55
--- NOTE | 2025-05-06 16:33 | DVHINCON2 ---
Date of service: May 06, [address] Proctor Reason for Consultation Anemia History of Present Illness The patient is a 84-year-old female with past medical history of GERD, anemia, thyroid disease, hyperlipidemia, and hypertension who presented to [facility] ED for evaluation of generalized weakness. Patient was recently seen at this facility a proximally one week ago with same complaints, received blood transfusion, was admitted and received GI consultation including an endoscopy. EGD had shown a small hiatal hernia and mild gastritis. On this admission patient's hemoglobin was 7.2. She received 2 units PRBC . Hemoglobin is up to 10.4. No active GI bleeding is reported were stools are Hemoccult positive. Patient and daughter are requesting an inpatient colonoscopy as they had some trouble getting referral for outpatient appointments Past Medical History Past Medical History Anemia, GERD, High Lipids, HTN, Thyroid Past Surgical History Past Surgical History , Hysterectomy Family History: Alzheimer's disease G8 MOTHER, Onset:Unknown (old age and alz per patient) Cardiovascular disease G8 FATHER, Onset:Unknown (Patient states heart vessels were clogged) Allergies: Coded Allergies: Penicillins (Verified Allergy, Unknown, 03/29/25) Home Meds Active Scripts Sucralfate (CARAFATE) 1 Gm Tab, 1 GM OR ACHS for 30 Days, #120 TAB Prov:DORITA PROCTOR MD 05/06/25 Pantoprazole Sodium Sesquihydr (Protonix) 40 Mg Tab, 40 MG PO BID, #60 TAB Prov:DORITA PROCTOR MD 05/06/25 Metoprolol Tartrate (Metoprolol Tartrate) 25 Mg Tab, 0.5 TAB PO BID, #60 TAB 1 Refill Prov:VANESSA CAROLINA MD 04/03/25 Sucralfate (CARAFATE) 1 Gm Tab, 1 GM PO BID, #120 TAB Prov:VANESSA CAROLINA MD 04/03/25 Pantoprazole Sodium Sesquihydr (Pantoprazole Sodium) 40 Mg Tab, 40 MG PO BID, #60 TAB Prov:VANESSA CAROLINA MD 04/03/25 Ferrous Sulfate (FERROUS SULFATE) 325 Mg Tb, 1 TAB PO BID for 60 Days, #120 TAB 3 Refills Prov:ALICJA JAMES NP 11/18/23 Reported Medications Chlorthalidone (Chlorthalidone) 25 Mg Tab, 12.5 MG PO DAILY@BREAKFAST, TAB 04/17/25 Nifedipine (Nifedipine ER) 30 Mg Tab 03/29/25 Lisinopril (Lisinopril) 40 Mg Tab, 1 TAB PO DAILY 11/17/23 Atorvastatin Calcium (ATORVASTATIN CALCIUM) 20 Mg Tab, 1 TAB PO DAILY 11/17/23 Levothyroxine Sodium (Levothyroxine Sodium) 75 Mcg Tab, 1 TAB PO DAILY 11/17/23 Vital Signs Vital Signs Date Time Temp Pulse Resp B/P (MAP) Pulse Ox O2 Delivery O2 Flow Rate FiO2 05/06/25 13:00 97.5 74 16 139/70 (93) 95 97.5 05/06/25 08:00 Room Air* 0 21 Physical Exam Hemodynamically stable, full physical examination deferred No localizing signs reported Labs/Diagnostic Data Labs Test 05/06/25 04:06 05/04/25 23:35 05/04/25 18:24 05/04/25 04:35 Range/Units White Blood Count 8.1 4.4-10.8 10^3/uL Red Blood Count 3.79 L 4.0-5.20 10^6/uL Hemoglobin 10.4 L 12.2-16.2 g/dL Hematocrit 30.3 L 36.0-46.0 % Mean Corpuscular Volume 79.9 L 80.0-100.0 fL Mean Corpuscular Hemoglobin 27.3 L 28.0-32.0 pg Mean Corpuscular Hemoglobin Concent 34.2 32.0-36.0 g/dL Red Cell Distribution Width 20.0 H 11.8-14.3 % Platelet Count 359 140-450 10^3/uL Mean Platelet Volume 6.8 L 6.9-10.8 fL Neutrophils (%) (Auto) 72.6 37.0-80.0 % Lymphocytes (%) (Auto) 14.8 10.0-50.0 % Monocytes (%) (Auto) 9.2 0.0-12.0 % Eosinophils (%) (Auto) 2.7 0.0-7.0 % Basophils (%) (Auto) 0.7 0.0-2.0 % Neutrophils # (Auto) 5.9 1.6-8.6 10 ^3/uL Lymphocytes # (Auto) 1.2 0.4-5.4 10 ^3/uL Monocytes # (Auto) 0.7 0-1.3 10 ^3/uL Eosinophils # (Auto) 0.2 0-0.8 10 ^3/uL Basophils # (Auto) 0.1 0-0.2 10 ^3/uL Nucleated Red Blood Cells 0.1 % Sodium Level 133 L 136-145 mmol/L Potassium Level 3.8 3.5-5.1 mmol/L Chloride Level 96 L 98-107 mmol/L Carbon Dioxide Level 26 20-31 mmol/L Anion Gap 11 5-15 Blood Urea Nitrogen 10 9-23 mg/dL Creatinine 0.75 0.550-1.02 mg/dL Glomerular Filtration Rate Calc 79 >90 mL/min BUN/Creatinine Ratio 13.3 10.0-20.0 Serum Glucose 98 74-106 mg/dL Calcium Level 9.5 8.7-10.4 mg/dL Stool Occult Blood Positive Negative Stool Occult Blood Sample #3 Negative Reticulocyte Count (auto) 2.26 H 0.5-1.5 % Lactate Dehydrogenase 170 120-246 U/L Total Bilirubin 0.5 0.2-1.0 mg/dL Aspartate Amino Transferase (AST) 23 13-40 U/L Alanine Aminotransferase (ALT) 23 7-40 U/L Alkaline Phosphatase 50 46-116 U/L Total Protein 6.5 5.7-8.2 g/dL Albumin 4.6 3.2-4.8 g/dL Test 05/03/25 20:00 05/03/25 19:00 Range/Units Troponin I High Sensitivity 4 </=34 ng/L Thyroid Stimulating Hormone (TSH) 1.99 0.55-4.78 uIU/mL Lactic Acid Level 1.3 0.4-2.0 mmol/L B-Type Natriuretic Peptide 38.05 0-100 pg/mL Problems(with codes): (1) Generalized weakness (2) Symptomatic anemia (3) Occult blood positive stool Plan/Recommendation Plan Patient will be put on a clear liquid diet and started on bowel prep I will tentatively plan for a colonoscopy on 05/07/2025 Monitor labs Continue PPI Review biopsy results Plan discussed with: Other (Nurse Onesimo) ANASTASIYA JENKINS MD May 06, 2025 16:33
[2025-05-06] MEDS: GOLYTELY 4L KIT PO ONE (17:23)
[2025-05-07] VITALS (8 sets, daily range): BP systolic 112–149; BP diastolic 48–83; PULSE 70–94; RESP 15–17; TEMP 96.4–97.8; O2SAT 93–100
[2025-05-07] MEDS: MAGNESIUM CITRATE SOLUTION 300 ML BTL PO ONE (05:28)
[2025-05-07] MEDS: GOLYTELY 4L KIT PO ONE (05:28)
--- NOTE | 2025-05-07 06:44 | DVH ---
CHEST RADIOGRAPH Indication: preop Technique: Single frontal view of the chest was obtained Comparison: XY CHEST PORTABLE on DOS: 04/17/25 FINDINGS: Lines and Tubes: None Lungs: No focal consolidation. Pleura: No effusion. No pneumothorax. Cardiomediastinal contours: Unremarkable Bones: No acute osseous abnormality. IMPRESSION: 1. No acute cardiopulmonary disease.
[2025-05-07 07:05] LABS: INR 1.0 (0.9-1.15); Partial Thromboplastin Time 24.6 SEC (24.5-34.5); Prothrombin Time 10.6 sec (9.3-11.8)
[2025-05-07] MEDS ORDERED: LIDOCAINE VISCOUS 2% 15ML UD ONE (08:44)
[2025-05-07] MEDS ORDERED: MIDAZOLAM HCL 5 MG/ML-1ML VIAL ONE (08:44)
[2025-05-07] MEDS ORDERED: diphenhdrAMINE HCL 50 MG/1 ML VL ONE (08:44)
[2025-05-07] MEDS ORDERED: SODIUM CHLORIDE LOCK 10 ML ONE (08:44)
[2025-05-07] MEDS ORDERED: fentaNYL CITRATE 100 MCG/2 ML VL ONE (08:44)
--- NOTE | 2025-05-07 11:27 | ECG ---
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
[2025-05-07 11:43] LABS: Urine Protein, UAD Negative (Negative)
[2025-05-07] MEDS ORDERED: PROPOFOL 10 MG/ML 20 ML IV ONE (13:58)
[2025-05-07] MEDS ORDERED: LIDOCAINE 1% INJ PF 5ML AMP ONE (13:58)
[2025-05-07] MEDS ORDERED: SIMETHICONE 40 MG/0.6 ML ORAL DROP ONE (14:03)
--- NOTE | 2025-05-07 14:45 | DVHOP2 ---
Operative Report DATE OF OPERATION: 05/07/25 PROCEDURE: Colonoscopy with cold biopsy. PREOPERATIVE INDICATION: The patient is a 84 -year-old female undergoing colonoscopy for evaluation of anemia and heme-positive stools POSTOPERATIVE DIAGNOSES: 1. Minimal nonspecific sigmoiditis from which biopsies were obtained 2. 1+ internal hemorrhoids otherwise essentially completely normal colonoscopy examination up to the cecum and terminal ileum PROCEDURE PERFORMED BY: Anastasiya Omalley M.D. SCOPE: Olympus videocolonoscope. ASA CLASS: 3. PREOPERATIVE MEDICATIONS: Mac ej, Karel Bacon PROCEDURE IN DETAIL: After obtaining an informed consent, the patient was placed on left lateral decubitus position. She was then sedated with the above medications. A rectal examination was performed that was normal. The colonoscope was then passed through the anus into the rectosigmoid and through the descending, transverse, and ascending colon up to the cecum with visualization of the appendiceal orifice, base of the cecum and the ileocecal valve. The colonoscope was then withdrawn. The distal 5-10 cm of the terminal ileum were normal. No polyps or masses were seen. There was no colitis or clear-cut diverticular disease. Patient had a good bowel prep and there was no fresh or old blood in the GI tract. In the sigmoid there was minimal nonspecific sigmoiditis and some sigmoid biopsies were obtained On retroflexion and straight on view patient had 1+ slightly inflamed internal hemorrhoids The patient tolerated the procedure well without difficulty. WITHDRAWAL TIME: 8 minutes QUALITY OF THE PREP: [place] Bowel Prep score: 9. COMPLICATIONS : None SPECIMENS: Sigmoid colon biopsies DISPOSITION: Transfer back to the floor Stable PLAN: 1. Repeat colonoscopy base on biopsy result likely in 10 years 2. Resume GI soft diet advance as tolerated 3. Avoid aspirin NSAIDs smoking alcohol 4. Outpatient follow up with me in 4-6 weeks to review results and discuss further management ANASTASIYA OMALLEY MD May 07, 2025 14:45
--- NOTE | 2025-05-07 16:01 | DVHPN2 ---
Subjective Patient was seen and evaluated by me. Patient is currently scheduled for colonoscopy with the GI on05/07. Reviewed: H&P Changes from previous H/P or p: No Changes General: Per HPI Eyes: No Pain, No Vision change, No Conjunctivae inflammation, No Eyelid inflammation, No Other, No Redness ENT: No Ear pain, No Ear discharge, No Nose pain, No Nose discharge, No Nose congestion, No Mouth pain, No Mouth swelling, No Throat pain, No Throat swelling, No Other Cardiovascular: No Chest Pain, No Palpitations, No Orthopnea, No Paroxysmal Noc. Dyspnea, No Edema, No Lt Headedness, No Other Respiratory: No Cough, No Dry, No Shortness of breath, No SOB with excertion, No Wheezing, No Hemoptysis, No Pleuritic Pain, No Sputum, No Other Gastrointestinal: No Nausea, No Vomiting, No Abdominal Pain, No Diarrhea, No Constipation, No Melena, No Hematochezia, No Other Genitourinary: No Dysuria, No Frequency, No Incontinence, No Hematuria, No Retention, No Other Musculoskeletal: No other, No neck pain, No shoulder pain, No arm pain, No back pain, No hand pain, No leg pain, No foot pain Skin: No Rash, No Lesions, No Jaundice, No Bruising, No Other Objective Vitals Vital Signs Date Time Temp Pulse Resp B/P (MAP) Pulse Ox O2 Delivery O2 Flow Rate FiO2 05/07/25 15:20 97.7 72 16 149/77 (101) 95 97.7 05/07/25 14:28 Mask 8.0 05/07/25 14:28 100 Intake/Output Intake and Output 05/07/25 07:00 Intake Total 440 ml Balance 440 ml Intake Oral 440 ml # Voids 4 Exam HEENT pupils are reactive supple CV is S1-S2 regular rate and rhythm Diminished breath sounds bases GI positive bowel sounds soft nondistended nontender no guarding no rigidity Extremities no edema [employer] no motor deficit. Medications Current Medications Medications Dose Ordered Sig/Conner Route Start Time Stop Time Status Last Admin Dose Admin Atorvastatin Calcium 20 mg HS PO 05/04/25 22:00 05/06/25 21:25 20 MG Levothyroxine Sodium 75 mcg QAM@0600 PO 05/04/25 06:00 05/06/25 05:36 75 MCG Sodium Chloride 1,000 ml @ 60 mls/hr [id number] IV 05/03/25 22:45 05/06/25 00:45 60 MLS/HR Acetaminophen/ Hydrocodone Bitart 1 tab Q4HP PRN PO 05/03/25 22:45 Ondansetron HCl 4 mg Q4HP PRN IV 05/03/25 22:45 Docusate Sodium 100 mg BIDPRN PRN PO 05/03/25 22:45 Acetaminophen 650 mg Q6HP PRN PO 05/03/25 22:45 Nitroglycerin 0.4 mg Q5MINP PRN SL 05/03/25 23:45 Morphine Sulfate 2 mg Q30M PRN IV 05/03/25 23:45 Laboratory Results Laboratory Tests 05/06/25 04:06 Coagulation Test 05/07/25 06:24 Prothrombin Time 10.6 sec (9.3-11.8) Prothrombin Time INR 1.00 (0.9-1.15) Activated Partial Thromboplast Time 24.6 SEC (24.5-34.5) Urinalysis Test 05/07/25 11:00 Urine Color Light-yellow (Yellow) Urine Clarity Clear (Clear) Urine pH 5.5 (5.0-9.0) Urine Specific [place] 1.018 (1.001-1.035) Urine Protein Negative (Negative) Urine Ketones Negative (Negative) Urine Blood Negative /uL (Negative) Urine Nitrite Negative (Negative) Urine Bilirubin Negative (Negative) Urine Urobilinogen Normal mg/dL (Negative) Urine Leukocyte Esterase Negative /uL (Negative) Urine RBC 1 /hpf (0 - 4) Urine Microscopic WBC < 1 /HPF (0-5) Urine Squamous Epithelial Cells Few /hpf (<5) Urine Bacteria None seen /hpf (None Seen) Urine Mucus Few (None Seen) Urine Glucose Normal mg/dL (Normal) Assessment/Plan Assessment/Plan 84-year-old female with a known history of hypertension, dyslipidemia, hypothyroidism, recent diagnosis of esophagitis and gastritis on EGD presented to the hospital with the increasing shortness a breath generalized weakness found to have 1. Acute on chronic anemia status post 2 units of packed RBC 2. Rule out any GI bleed 3. Shortness of breaths suspected secondary to symptomatic anemia 4. Hypertension 5. Dyslipidemia 6. Hypothyroidism -monitor H&H, colon prep, colonoscopy tomorrow. Plan discussed with: Patient Date of Service: May 06, 2025 Billing Provider: DORITA PROCTOR MD Common Visit Codes: [id number] INP/OBS CARE(MOD) DORITA PROCTOR MD May 07, 2025 16:01
--- NOTE | 2025-05-07 16:06 | DVHDS2 ---
Discharge Summary Date of Admission May 03, 2025 at 23:37 Date of Discharge: May 07, 2025 Labs/Diagnostic Data: Laboratory Results Test 05/07/25 11:00 05/07/25 06:24 05/06/25 04:06 05/04/25 23:35 Urine Color Light-yellow (Yellow) Urine Clarity Clear (Clear) Urine pH 5.5 (5.0-9.0) Urine Specific [place] 1.018 (1.001-1.035) Urine Protein Negative (Negative) Urine Ketones Negative (Negative) Urine Blood Negative /uL (Negative) Urine Nitrite Negative (Negative) Urine Bilirubin Negative (Negative) Urine Urobilinogen Normal mg/dL (Negative) Urine Leukocyte Esterase Negative /uL (Negative) Urine RBC 1 /hpf (0 - 4) Urine Microscopic WBC < 1 /HPF (0-5) Urine Squamous Epithelial Cells Few /hpf (<5) Urine Bacteria None seen /hpf (None Seen) Urine Mucus Few (None Seen) Urine Glucose Normal mg/dL (Normal) Prothrombin Time 10.6 sec (9.3-11.8) Prothrombin Time INR 1.00 (0.9-1.15) Activated Partial Thromboplast Time 24.6 SEC (24.5-34.5) White Blood Count 8.1 10^3/uL (4.4-10.8) Red Blood Count 3.79 10^6/uL (4.0-5.20) Hemoglobin 10.4 g/dL (12.2-16.2) Hematocrit 30.3 % (36.0-46.0) Mean Corpuscular Volume 79.9 fL (80.0-100.0) Mean Corpuscular Hemoglobin 27.3 pg (28.0-32.0) Mean Corpuscular Hemoglobin Concent 34.2 g/dL (32.0-36.0) Red Cell Distribution Width 20.0 % (11.8-14.3) Platelet Count 359 10^3/uL (140-450) Mean Platelet Volume 6.8 fL (6.9-10.8) Neutrophils (%) (Auto) 72.6 % (37.0-80.0) Lymphocytes (%) (Auto) 14.8 % (10.0-50.0) Monocytes (%) (Auto) 9.2 % (0.0-12.0) Eosinophils (%) (Auto) 2.7 % (0.0-7.0) Basophils (%) (Auto) 0.7 % (0.0-2.0) Neutrophils # (Auto) 5.9 10 ^3/uL (1.6-8.6) Lymphocytes # (Auto) 1.2 10 ^3/uL (0.4-5.4) Monocytes # (Auto) 0.7 10 ^3/uL (0-1.3) Eosinophils # (Auto) 0.2 10 ^3/uL (0-0.8) Basophils # (Auto) 0.1 10 ^3/uL (0-0.2) Nucleated Red Blood Cells 0.1 % Sodium Level 133 mmol/L (136-145) Potassium Level 3.8 mmol/L (3.5-5.1) Chloride Level 96 mmol/L (98-107) Carbon Dioxide Level 26 mmol/L (20-31) Anion Gap 11 (5-15) Blood Urea Nitrogen 10 mg/dL (9-23) Creatinine 0.75 mg/dL (0.550-1.02) Glomerular Filtration Rate Calc 79 mL/min (>90) BUN/Creatinine Ratio 13.3 (10.0-20.0) Serum Glucose 98 mg/dL (74-106) Calcium Level 9.5 mg/dL (8.7-10.4) Stool Occult Blood Positive (Negative) Stool Occult Blood Sample #3 (Negative) Test 05/04/25 18:24 05/04/25 04:35 05/03/25 20:00 05/03/25 19:00 Reticulocyte Count (auto) 2.26 % (0.5-1.5) Lactate Dehydrogenase 170 U/L (120-246) Total Bilirubin 0.5 mg/dL (0.2-1.0) Aspartate Amino Transferase (AST) 23 U/L (13-40) Alanine Aminotransferase (ALT) 23 U/L (7-40) Alkaline Phosphatase 50 U/L (46-116) Total Protein 6.5 g/dL (5.7-8.2) Albumin 4.6 g/dL (3.2-4.8) Troponin I High Sensitivity 4 ng/L (</=34) Thyroid Stimulating Hormone (TSH) 1.99 uIU/mL (0.55-4.78) Lactic Acid Level 1.3 mmol/L (0.4-2.0) B-Type Natriuretic Peptide 38.05 pg/mL (0-100) Other Laboratory Tests 05/06/25 04:06 Brief Hx & Hospital Course: 84-year-old female with a known history of hypertension, dyslipidemia, hypothyroidism, recent diagnosis of esophagitis and gastritis on EGD presented to the hospital with the increasing shortness a breath generalized weakness found to have acute on chronic symptomatic anemia requiring 2 units of packed RBC. Patient was seen by GI patient's has a previous history of anemia status post EGD shows no acute pathology. This admission patient underwent colonoscopy which shows no evidence of any bleed just 1+ internal hemorrhoids without any bleeding. Patient was cleared by GI to be discharged to follow up on the colon sigmoid specimen biopsy. This was explained to the patient in detail. Patient needs to follow up on the full anemia workup as an outpatient with the PCP. Patient is currently understand verbalized understanding and agreeable to plan. Condition at Discharge: Stable Final Diagnosis/Problems List 84-year-old female with a known history of hypertension, dyslipidemia, hypothyroidism, recent diagnosis of esophagitis and gastritis on EGD presented to the hospital with the increasing shortness a breath generalized weakness found to have 1. Acute on chronic anemia status post 2 units of packed RBC 2. Rule out upper GI bleed status post colonoscopy showed 1+ internal hemorrhoids otherwise no active evidence of bleeding. Follow up on the sigmoid colon biopsy as an outpatient 3. Shortness of breaths suspected secondary to symptomatic anemia 4. Hypertension 5. Dyslipidemia 6. Hypothyroidism Discharge Disposition: Home with [facility] Discharge Will this Physician continue t: No Discharge Instruct/Medications Diet: Cardiac 2g Na,low cholest Activity: No Restrictions, As Tolerated Follow Up/Referral: Follow up with the PCP in one week, full anemia workup if patient's hemoglobin remains low. Follow up with the GI in 1-2 weeks to follow up on sigmoid colon biopsy. Medications: Protonix and Carafate as prescribed. Scheduled Atorvastatin Calcium (Atorvastatin Calcium), 1 TAB PO DAILY, (Reported) Chlorthalidone (Chlorthalidone), 12.5 MG PO DAILY@BREAKFAST, (Reported) Ferrous Sulfate (Ferrous Sulfate), 1 TAB PO BID Levothyroxine Sodium (Levothyroxine Sodium), 1 TAB PO DAILY, (Reported) Lisinopril (Lisinopril), 1 TAB PO DAILY, (Reported) Metoprolol Tartrate (Metoprolol Tartrate), 0.5 TAB PO BID Pantoprazole Sodium Sesquihydr (Pantoprazole Sodium), 40 MG PO BID Pantoprazole Sodium Sesquihydr (Protonix), 40 MG PO BID Sucralfate (Carafate), 1 GM PO BID Sucralfate (Carafate), 1 GM OR ACHS Miscellaneous Medications Nifedipine (Nifedipine ER), (Reported) Discharge Statement: "Patient was advised to return to the ER or call 911 if any headaches, dizziness, shortness of breath, chest pain, abdominal pain, bleeding, fevers, or worsening of medical condition. Patient was counseled about treatment plan, medications, possible side effects, patientverbalized understanding. All questions were answered to the best of my ability. This discharge took greater then 30 minutes in planning, reviewing documentation, counseling the patient, and discussing with other team members." ASSESSMENT ASSESSMENT Assessment 84-year-old female with a known history of hypertension, dyslipidemia, hypothyroidism, recent diagnosis of esophagitis and gastritis on EGD presented to the hospital with the increasing shortness a breath generalized weakness found to have 1. Acute on chronic anemia status post 2 units of packed RBC 2. Rule out upper GI bleed status post colonoscopy showed 1+ internal hemorrhoids otherwise no active evidence of bleeding. Follow up on the sigmoid colon biopsy as an outpatient 3. Shortness of breaths suspected secondary to symptomatic anemia 4. Hypertension 5. Dyslipidemia 6. Hypothyroidism Date of Service: May 07, 2025 Billing Provider: DORITA PROCTOR MD Common Visit Codes: [id number] DISCH DAY >30min DORITA PROCTOR MD May 07, 2025 16:06
== END 2025-05-07 18:50 | disposition home or self-care (01) | DRG 812 ==
LOC: ER 17:29 → OVERFLOW 23:37 → DOU IN ADS 05-04 17:07 → EAST 05-04 17:53 → TELE-EAST 05-04 17:57
PROVIDERS: ADMIT Hospitalist; ATTEND Hospitalist
PROC: 30233N1 Transfusion of Nonautologous Red Blood Cells into Peripheral Vein, Percutaneous Approach (ICD-10-PCS; principal; 2025-05-03)
PROC: 0DBN8ZX Excision of Sigmoid Colon, Via Natural or Artificial Opening Endoscopic, Diagnostic (ICD-10-PCS; 2025-05-07)
DX: D64.9 Anemia, unspecified (principal); E87.1 Hypo-osmolality and hyponatremia; I10 Essential (primary) hypertension; E03.9 Hypothyroidism, unspecified; K64.8 Other hemorrhoids; K52.9 Noninfective gastroenteritis and colitis, unspecified; E78.5 Hyperlipidemia, unspecified; I95.9 Hypotension, unspecified; K21.9 Gastro-esophageal reflux disease without esophagitis; K44.9 Diaphragmatic hernia without obstruction or gangrene; Z90.710 Acquired absence of both cervix and uterus; Z82.49 Family history of ischemic heart disease and other diseases of the circulatory system; Z82.0 Family history of epilepsy and other diseases of the nervous system; Z88.0 Allergy status to penicillin
CPT/HCPCS: 36415; 45380; 71045; 80048; 80053; 81001; 82270; 83605; 83615; 83880; 84443; 84484; 85014; 85018; 85025; 85045; 85610; 85730; 86850; 86900; 86901; 86920; 93005; G0378; J2250; J2704

== ENCOUNTER 2025-05-16 09:14 | Outpatient (CLI) | payer OTHER ==
[~2025-05-16 09:14] MED LIST changes: -ALBU108A5 IN; -ATOR20TA50; -AZITTAB PO; -BENZ100C97 PO; +PANT40TA2 PO; +SUCR1TAB31 OR
[2025-05-16 10:21] LABS: Hematocrit 31.9 % (36.0-46.0); Hemoglobin 10.7 g/dL (12.2-16.2); Mean Corpuscular Hemoglobin 27.2 pg (28.0-32.0); Mean Corpuscular Volume 81.1 fL (80.0-100.0); Nucleated Red Blood Cells % 0.1 %
[2025-05-16 11:05] LABS: Total Iron Binding Capacity 397.0 ug/dL (250-425)
[2025-05-16 11:07] LABS: Iron 280.0 ug/dL (50-170)
== END 2025-05-16 17:00 | disposition home or self-care (01) ==
LOC: LAB 09:14
PROVIDERS: ATTEND Nurse Practitioner Family
DX: D50.0 Iron deficiency anemia secondary to blood loss (chronic) (principal)
CPT/HCPCS: 36415; 83540; 83550; 85025